=== PATIENT | female | born 1940 | race Caucasian/White ===

== ENCOUNTER 2020-04-03 14:58 | Outpatient (CLI) | payer MEDICARE, SELFPAY ==
--- NOTE | ~2020-04-03 | MM_ITS ---
EXAMINATION: MM screening jim BI w lorraine HISTORY: Screening mammogram TECHNIQUE: Craniocaudal and mediolateral oblique 3-D tomosynthesis images were obtained and synthetic 2-D images were generated. CAD analysis was submitted and interpreted. COMPARISON: No prior mammogram is available for comparison at this institution. BREAST PARENCHYMAL COMPOSITION: There are scattered areas of fibroglandular density. FINDINGS: There are benign bilateral breast calcifications. There is no evidence of suspicious mass, calcification, or architectural distortion to suggest malignancy in either breast. There has been no suspicious interval change. IMPRESSION: 1. No mammographic evidence of malignancy. 2. Recommend routine screening mammography in one year. BI-RADS Category 2: Benign finding(s). Reviewed, dictated and finalized at location A.
--- NOTE | ~2020-04-03 | DEXA_ITS ---
Bone Density Report Name: Ashley Ortiz Age: 79 Sex: Female Ethnicity: White Date of : 1940 Indication: osteopenia; height loss; hysterectomy; Referring Provider: THADDEUS, DENIS Mooer Study: Bone densitometry was performed. Exam Date: April 03, 2020 Accession number: [id number] Bone Density: Region BMD T-score Z-score Classification AP Spine (L1-L4) 0.860 -1.7 1.0 Osteopenia Femoral Neck (Left) 0.604 -2.2 0.1 Osteopenia Total Hip (Left) 0.809 -1.1 1.0 Osteopenia Total Hip Bilateral Avg 0.820 -1.0 1.1 Osteopenia Femoral Neck (Right) 0.599 -2.3 0.0 Osteopenia Total Hip (Right) 0.831 -0.9 1.1 Normal World Health Organization criteria for BMD impression classify patients as: Normal (T-score at or above -1.0), Osteopenia (T-score between -1.0 and -2.5), or Osteoporosis (T-score at or below -2.5). 10-year Fracture Risk(1): Major Osteoporotic Fracture 17% Hip Fracture 5.1% Reported Risk Factors: [place] (), Neck BMD=0.599, BMI=30.4 (1) FRAX(R) Version 3.08. Fracture probability calculated for an untreated patient. Fracture probability may be lower if the patient has received treatment. Previous Exams: Region Exam Age BMD T-score BMD Change BMD Change Date g/cm2 vs Baseline vs Previous AP Spine(L1-L4) 04/03/2020 79 0.860 -1.7 0.002(0.2%) 0.002(0.2%) 05/21/2015 75 0.858 -1.7 Total Hip(Left) 04/03/2020 79 0.809 -1.1 -0.039(-4.6%)* -0.039(-4.6%)* 05/21/2015 75 0.848 -0.8 Total Hip(Right) 04/03/2020 79 0.831 -0.9 -0.049(-5.6%)* -0.049(-5.6%)* 05/21/2015 75 0.880 -0.5 *Denotes significance at 95% confidence level, LSC for AP Spine = 0.022 g/cm2, LSC for Total Hip = 0.027 g/cm2 Clinical Information Provided by Patient: Has the following medical conditions: Hysterectomy Patient maximum height was 66 Menopause Age: 50 No regular weight bearing exercise Drinks caffeinated beverages Onset of menses at age 14 Number of children 4 Impression: The patient has low bone mass, based on the Right Femoral Neck T-score. The patient has an estimated ten-year risk of hip fracture of 5.1% and an estimated ten-year risk of major fracture of 17%, based on the WHO FRAX algorithm. The BMD for the Total Hip(Left) decreased, changing by -4.6% since the last DXA exam. The BMD for the Total Hip(Right) decreased, changing by -5.6% since the last DXA exam. Discussion: BONE DENSITY IS LOW AT ONE OR MORE SKELETAL SITES. THE JANAY
== END 2020-04-03 14:59 | disposition home or self-care (01) ==
PROVIDERS: PCP Internal Medicine; Visit Provider Internal Medicine
DX: Z12.31 Encounter for screening mammogram for malignant neoplasm of breast (principal); Z78.0 Asymptomatic menopausal state; M85.88 Other specified disorders of bone density and structure, other site; M85.852 Other specified disorders of bone density and structure, left thigh; M85.851 Other specified disorders of bone density and structure, right thigh
CPT/HCPCS: 77063; 77067; 77080

== ENCOUNTER 2021-10-29 09:13 | Outpatient (CLI) | payer MEDICARE, SELFPAY ==
--- NOTE | ~2021-10-29 | MM_ITS ---
EXAMINATION: MM screening [facility] BI w lorraine HISTORY: Screening mammogram TECHNIQUE: Craniocaudal and mediolateral oblique 3-D tomosynthesis images were obtained and synthetic 2-D images were generated. CAD analysis was submitted and interpreted. COMPARISON: 04/03/2020 BREAST PARENCHYMAL COMPOSITION: There are scattered areas of fibroglandular density. FINDINGS: RIGHT BREAST: There is no evidence of suspicious mass, calcification, or architectural distortion to suggest malignancy. There has been no significant interval change. LEFT BREAST: There is a possible mass in the middle third of the upper-outer quadrant breast 6.5 cm f rom the nipple. IMPRESSION: 1. Possible left breast mass 2. Additional mammographic views and possible breast ultrasound are recommended. BI-RADS Category 0: Incomplete: Needs additional imaging evaluation. Reviewed, dictated and finalized at location A. PING/RECEIVING MANAGER IMPRESSION: 1. Possible left breast mass 2. Additional mammographic views and possible breast ultrasound are recommended . BI-RADS Category 0: Incomplete: Needs additional imaging evaluation.
== END 2021-10-29 09:14 | disposition home or self-care (01) ==
LOC: ANHIMG 09:14
PROVIDERS: PCP Internal Medicine; Visit Provider Internal Medicine
DX: Z12.31 Encounter for screening mammogram for malignant neoplasm of breast (principal); R92.8 Other abnormal and inconclusive findings on diagnostic imaging of breast
CPT/HCPCS: 77063; 77067

== ENCOUNTER 2021-12-17 13:48 | Outpatient (CLI) | payer MEDICARE, SELFPAY ==
--- NOTE | ~2021-12-17 | MMUS_ITS ---
EXAMINATION: MM diagnostic jim LT w lorraine, US breast LT limited HISTORY: Follow-up possible left breast mass TECHNIQUE: Additional 3-D tomosynthesis images of the left breast were performed and synthetic 2-D im ages were generated. CAD analysis was submitted and interpreted. High resolution Limited left breast ultrasound was performed. COMPARISON: Comparison to multiple prior studies sequentially, with oldest reviewed study dated 04/03. BREAST PARENCHYMAL COMPOSITION: Breast composed of scattered areas of fibroglandular density. FINDINGS: MAMMOGRAPHIC FINDINGS: There is focal architectural distortion in the upper outer quadrant of the left breast, middle third. There are benign-appearing calcifications of the left breast. ULTRASOUND: Limited left breast ultrasound: At 1:00 there is an irregular hypoechoic area with dense posterior sh adowing There is a 3.5 mm cyst at 2:00, 4 cm from the nipple. IMPRESSION: 1. Irregular hypoechoic mass with dense posterior shadowing at 1:00, 4 cm from the nipple. 2. This mass is better demonstrated on mammography and ultrasound. Stereotactic left breast biopsy re commended. BI-RADS category 4, suspicious findings. Reviewed, dictated and finalized at location A. INSTALLER IMPRESSION: 1. Irregular hypoechoic mass with dense posterior shadowing at 1:00, 4 cm from the nipple. 2. This mass is better demonstrated on mammography and ultrasound. Stereotactic left breast biopsy recommended. BI-RADS category 4, suspicious findings.
== END 2021-12-17 13:49 | disposition home or self-care (01) ==
PROVIDERS: PCP Internal Medicine; Visit Provider Internal Medicine
DX: R92.8 Other abnormal and inconclusive findings on diagnostic imaging of breast (principal)
CPT/HCPCS: 76642; 77061; 77065; G0279

== ENCOUNTER 2021-12-24 10:46 | Outpatient (CLI) | payer MEDICARE, SELFPAY ==
--- NOTE | ~2021-12-24 | MM_ITS ---
MM post biopsy diagnostic LT, MM stereotactic specimen LT, MM stereotactic bx LT EXAMINATION: MM post biopsy diagnostic LT, MM stereotactic specimen LT, MM stereotactic bx LT DATE: Charbel Ulloa M.D. INDICATION: Abnormal mass in the left breast. Stereotactic core biopsy is requested evaluate for mal ignancy. TECHNIQUE AND FINDINGS: The risks and potential benefits of the procedure were discussed with the patient and written informe d consent was obtained. The patient was placed in the prone position clustered at the table with the left breast in craniocaudal compression, and the area of interest was localized and targeted utilizi ng digital imaging with stereotaxis. After sterile preparation of the skin, 1% lidocaine was utilized for local anesthesia at the skin pun cture site and 1% lidocaine with epinephrine was utilized for deeper local anesthesia/is about the bi opsy site. A 9G Mobile Shareholder vacuum assisted biopsy needle was advanced to the level of the calcification o f interest from a cephalad approach utilizing stereotactic guidance and a total of 6 tissue core biop sies were obtained. A specimen radiograph demonstrates that the calcifications of interest are included within the tissue cores. A tissue marker clip was then placed at the biopsy site. The needle was removed and hemosta sis was achieved. The patient tolerated the procedure well and there is no evidence of significant i mmediate complication. The patient was given verbal as well as written postprocedural instructions p rior to discharge from the department. Tissue cores were submitted to surgical pathology for histolo gic analysis. A 2-view left unilateral digital mammogram was obtained post procedure and this demonstrates that the tissue marker clip is in expected position in the upper outer quadrant. IMPRESSION: 1. Successful stereotactic biopsy of mass in the upper outer quadrant of the left breast, followed b y tissue marker clip placement. Please refer to pathology report for histologic analysis. Reviewed, dictated and finalized at location A. T COUNTER CLERK IMPRESSION: 1. Successful stereotactic biopsy of mass in the upper outer quadrant of the l eft breast, followed by tissue marker clip placement. Please refer to patholog y report for histologic analysis. IMPRESSION: 1. Successful stereotactic biopsy of mass in the upper outer quadrant of the l eft breast, followed by tissue marker clip placement. Please refer to patholog y report for histologic analysis.
== END 2021-12-24 10:47 | disposition home or self-care (01) ==
PROVIDERS: PCP Internal Medicine; Visit Provider Internal Medicine
DX: D05.12 Intraductal carcinoma in situ of left breast (principal)
CPT/HCPCS: 19081; 77065; 88305; 88342; 88360; A4648

== ENCOUNTER 2022-01-10 11:12 | Outpatient (CLI) | payer MEDICARE, SELFPAY ==
[2022-01-10 11:38] LABS: Anion Gap 11 mmol/L (8-16); Blood Urea Nitrogen 29 mg/dL (7-17); Calcium 9.6 mg/dL (8.4-10.2); Carbon Dioxide 28 mmol/L (22-30); Chloride 100 mmol/L (98-107); Estimated Glomerular Filt Rate 48; Glucose 127 mg/dL (65-110); Potassium 4.1 mmol/L (3.4-5.0); Sodium 139 mmol/L (137-145)
== END 2022-01-10 11:13 | disposition home or self-care (01) ==
LOC: ANHSURGERY 11:16
PROVIDERS: Anesthesiology; PCP Internal Medicine; Visit Provider Surgery
DX: Z01.818 Encounter for other preprocedural examination (principal); E11.9 Type 2 diabetes mellitus without complications
CPT/HCPCS: 36415; 80048

== ENCOUNTER 2022-01-15 00:16 | Day surgery (SDC) | payer MEDICARE, SELFPAY ==
[2022-01-07 15:28] VITALS: BMI 29.0
--- NOTE | 2022-01-07 15:48 | PC.NURSE ---
Report to the Outpatient Waiting Room, entrance under the green pavilion located off [facility], at time _0830_ on date _01/15/22_. OR Time: _1200_ - NEEDLE LOCALIZATION @ 0930 - You and your visitor will be asked a series of questions to screen for COVID 19 for your protection. - A mask is required within the hospital. One visitor will be allowed to accompany the patient into the hospital. Patients visitor will be instructed to remain with patient at all times or leave the building. We will allow the visitor to come back to the postoperative area when patient is ready. Preoperative COVID Testing Requirements: NONE Patients may have clear liquids (water, carbonated beverages, clear teas, apple juice) until 3 hours prior to surgery (0900 AM) with a maximum of 20 ounces. - No food from midnight until time of surgery Take the following medications with a SIP of water the morning of surgery: _NONE_ Medications to discontinue per physician _PT ALREADY STOPPED ASPIRIN 12/19/21_ Please no make-up, nail portuguese, hairspray, perfume, deodorant, or body powder the day of surgery. No jewelry (including any body piercings) or valuables the day of surgery, leave them at home. Please take a shower or bath the night before, or the morning of, surgery with an antibacterial soap. Wear comfortable, loose fitting clothing. - Jewelry must be removed prior to entering the operating room. Rings and piercings that are not removed may be cut off. - The hospital will not accept responsibility for valuables. - Please leave all valuables, including medications, at home the day of surgery. If you are going home after surgery, a licensed guard driver must drive you home. - NO public transportation without another adult. - We recommend that an adult stay with you for 24 hours following discharge. - We also recommend that you do not drive, make important decision, drink alcoholic beverages, or take any drugs that were not prescribed by your health care provider for at least 24 hours after your discharge time. Follow any additional instructions given to you from your surgeon. [facility] AM OF SURGERY Telephone instructions given to __PT and asked if any additional questions and then verbalized understanding. Patient advised to call surgeon office or pre surgery nurse liaCYNTHIA hung [phone] if any additional questions.
--- NOTE | 2022-01-14 13:37 | P.PNAN_ITS ---
Anes - Initial Pre Proc Eval Procedure: Operation Date: 01/15/22 11:00 Proposed Procedures p Left Breast Lumpectomy With Ultrasound And/Or Mammogram Guided Needle Localization, - Jose Boyd MD s Left Axillary Craig Lymph Node Biopsy - Jose Boyd MD Date/Time: 01/14/22 13:37 Surgeon: Jose Boyd MD Pre Op Diagnosis: left breast cancer Patient Data Age: 81 Gender: F Height: 1.69 m Weight: 82.72 kg Allergies Allergy/AdvReac Type Severity Reaction Status Date / Time No Known Allergies Allergy Verified 01/15/22 08:54 Home Medications Medication Instructions Recorded Confirmed Type amiloride 5 mg-hydrochlorothiazide 1 tablet PO QAM 01/06/22 01/15/22 History 50 mg tablet aspirin 325 mg tablet 325 mg PO DAILY 01/06/22 01/07/22 History atorvastatin 20 mg tablet 20 mg PO QAM 01/06/22 01/15/22 History metformin 500 mg tablet 500 mg PO QAM 01/06/22 01/15/22 History Patient hx anesthesia problems: none Family hx anesthesia problems: none Results Review: All pre-operative results and documents have been reviewed as part of the pre-operative evaluation. [facility] Past Medical History Medical History (Updated 01/06/22 @ 10:19 by Mahnaz Barksdale) Diabetes High cholesterol Hypertension Surgical History Surgical History (Updated 01/06/22 @ 10:42 by Mahnaz Barksdale) H/O left knee surgery H/O mitral valve repair H/O: hysterectomy Hx of cholecystectomy Family History Family History Father Acute myocardial infarction Mother Heart disease Diabetes mellitus Social History Social History Smoking status: Never smoker Second hand tobacco smoke exposure: No Alcohol intake: never Substance use: never Substance use type: does not use Living arrangements: with family Additional living arrangements comments: LIVES WITH SPOUSE AND GRANDSON Additional occupation/education comments: beautician Gender identity (if verbalized by the patient): Female Spiritual care concerns: No Anes - Eval Final PreProcedure Day of Procedure 01/14/22 13:37 Patient weight: overweight Heart: regular rate and rhythm Lungs: clear to auscultation and normal air movement Airway: Mallampati scale class II Neurological: alert and oriented Last oral intake: >/= 8 hours ASA classification: III Emergent: no Anesthetic plan: proceed Anesthesia type and monitoring: general ETT and standard monitoring Results Review: All pre-operative results and documents have been reviewed as pa rt of the pre-operative evaluation. Informed Consent: The patient's anesthetic plan and its attendant risks and benefits were discussed with the patient/family/POA. Questions were solicited and answers provided to the satisfaction of the patient/family/POA.
[2022-01-15] VITALS (7 sets, daily range): BP systolic 111–130; BP diastolic 56–74; PULSE 62–76; RESP 14–20; TEMP 36.6–36.7; O2SAT 92–100
--- NOTE | ~2022-01-15 | MM_ITS ---
EXAMINATION: MM needle loc LT MAMMOGRAPHY SPECIMEN DATE: 01/15/2022 13:23 POWER PRESS SUPERVISOR INDICATION: Abnormal left breast mammogram. TECHNIQUE: The procedure for a mammography-guided needle localization was discussed with the patient' s. Risks and benefits were detailed, including risks of bleeding, infection, pain, and nondiagnostic specimen. The patient verbalized understanding and agreed to proceed. The time out was performed to verify the patient's name, date of , and site of procedure. The p atient was placed in left breast compression, and the skin overlying the left breast was prepped in u sual fashion. Utilizing mammography guidance, a needle was advanced into the left breast. Two confi rmatory films were obtained. The patient tolerated procedure without immediate complication. A specimen radiograph was performed. FINDINGS: Two view confirmatory films of the left breast demonstrate a the wire adjacent to the tissu e marker. The tissue marker is contained within the surgical specimen.] IMPRESSION: 1. Successful mammography-guided left breast needle localization. Reviewed, dictated and finalized at location A. R PRESS SUPERVISOR IMPRESSION: 1. Successful mammography-guided left breast needle localization.
--- NOTE | ~2022-01-15 | NM_ITS ---
NM sentinel node inject only 01/15/2022 13:24 MIGRATION AGENT INDICATION: Left breast cancer TECHNIQUE: 1.1 Millicuries Tc 99m filtered sulfur colloid was injected and 4 aliquots in the anterior upper outer quadrant of the breast near the areola. No images were obtained. IMPRESSION: 1: Status post left breast sentinel lymph node radiopharmaceutical injection. Reviewed, dictated and finalized at location A. ATION AGENT
[2022-01-15] MEDS: ACETAMINOPHEN 500 MG TABLET 1000 MG PO (08:58)
[2022-01-15] MEDS: KETOROLAC 15 MG/ML VIAL (*BKC) IV PUSH (09:08)
[2022-01-15] MEDS: LACTATED RINGERS 1,000 ML 30 ML IV CONT ×2 (09:08→14:00)
[2022-01-15 09:15] LABS: Glucose Point of Care 138 mg/dl (65-105)
--- NOTE | 2022-01-15 09:30 | SUR.PREOP ---
0930 pt taken to ultrasound for needle localization,dr ho notified sentinal node injection at 1000.
--- NOTE | 2022-01-15 11:04 | WPDHPUPDATE1 ---
History and Physical Update Update Date/Time: 01/15/22 11:04 History and Physical has been reviewed, including an updated exam of the patient. There are NO changes in the patient's condition. Risks, benefits, and alternatives have been discussed and questions answered. Patient agrees to proceed with procedure.
[2022-01-15] MEDS: ceFAZolin 2 GM/D5W 50 ML 2 GM/50 ML BAG IVPB (11:35)
[2022-01-15] MEDS: BUPIVACAINE/EPINEPHRINE 0.25% 10 ML VIAL 30 ML INFILTRATE (12:26)
[2022-01-15] MEDS: ISOSULFAN BLUE 1% INJ 5 ML VIAL SUB-Q (12:27)
--- NOTE | 2022-01-15 13:39 | SUR.OPER ---
specimens sent with johnna Howell and received in mammography by Koko and in pathology by Eva
[2022-01-15 14:07] LABS: Glucose Point of Care 126 mg/dl (65-105)
--- NOTE | 2022-01-15 14:22 | W.PM.PROC2 ---
Procedure Note - Detailed Date of Procedure 01/15/22 Pre-op Diagnosis left breast upper outer quadrant cancer Post-op Diagnosis Same Procedure Performed Wire localization, left breast lumpectomy; left axillary sentinel lymph node biopsy Surgeon Jose Boyd MD [employer] Life Dean Kay VENTURA Anesthesia General and Local (0.25% Marcaine with epinephrine) Indications Patient is an 81-year-old woman who was noted to have pleomorphic calcifications in the left breast, upper outer quadrant. 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 After discussion in the office, she is taken to surgery for wire localization, left breast lumpectomy as well as left axillary sentinel lymph node biopsy. Findings Three sentinel lymph nodes were submitted. [place] node 1. Took up dye and had a high isotope emission. Basalt node 2. Was enlarged but had only high isotope emission. Basalt node 3. Was a smaller lymph node but had high isotope emission. The specimen mammogram showed the marker lesion to be in the center of the specimen. Description of Procedure Patient was taken to surgery and induced into general anesthesia. The left breast and left axilla were prepped and draped. The left arm was mobile and prepped into the field. Care was taken not to disturb the localizing wire. We started with the sentinel node biopsy. Lymphazurin blue dye was infiltrated under the left nipple. Gentle breast massage was carried out. Using the navigator, I found an area in the left axilla that had a very high isotope emission. I marked this with an X on the skin. And then marked the proposed hairline left axillary incision. Local anesthesia was infiltrated in the area of the anticipated incision. Incision was made dissection was carried down through the subcutaneous fat. We dissected into the axillary fat. I then used the Navigator again and found the location of the initial sentinel node. I would continued the dissection in this direction and eventually found a dye stained somewhat enlarged lymph node. I carefully dissected this from the surrounding axillary tissue. A couple of dye stained lymphatics were clipped and disconnected from the node. Eventually I dissected the node out completely using cautery as well as some blunt and sharp dissection. I again checked the node with the navigator in and had a very high isotope emission. It was sent as left axillary node 1. I checked the axilla again with the navigator. Another area of very high isotope emission was high in the axilla under the pectoralis minor muscle. This area was exposed and I dissected under the clavipectoral fascia. Continued dissection showed a very large lymph node that had a high isotope emission. This node was not dye stained. It was actually fairly close to the axillary vein. I carefully dissected this node from the surrounding axillary tissue. Some cautery as well as clips for lymphatics were used. Eventually the node was dissected completely free. I checked it again and it had hi isotope emission. It was sent as axillary lymph node 2. I checked the left axilla again and found 1 other area of high isotope emission. This was medial to the incision went somewhat deep but not high in the axilla. I dissected this area and found a small lymph node which also had high isotope emission but no dye staining. This node was dissected from the remaining axillary tissue. I checked it again and the isotope emission was consistent with another sentinel node. This node was sent as axillary lymph node 3. I then recheck the axilla with the navigator. Although there was some isotope emission associated with dye stained lymphatics, I could not find any other areas that were suggestive of an axillary sentinel node. I palpated the axilla as well. No enlarged nodes were noted. I then checked and made sure hemostasis was excellent. The axilla was closed with a deep layer of interrupted 3-0 Monocryl suture.
== END 2022-01-15 16:03 | disposition home or self-care (01) ==
PROVIDERS: PCP Internal Medicine; Visit Provider Surgery
PROC: (CPT 19301; principal; 2022-01-15 11:00)
PROC: (CPT 19301; 2022-01-15 11:00)
DX: C50.412 Malignant neoplasm of upper-outer quadrant of left female breast (principal); N60.82 Other benign mammary dysplasias of left breast; N60.32 Fibrosclerosis of left breast; E11.9 Type 2 diabetes mellitus without complications; E78.00 Pure hypercholesterolemia, unspecified; I10 Essential (primary) hypertension; Z79.84 Long term (current) use of oral hypoglycemic drugs; Z79.82 Long term (current) use of aspirin
CPT/HCPCS: 19301; 38525; 19281; 36415; 38792; 76098; 80048; 82948; 88307; 88342; A9270; A9520; C1713; C1769; J0690; J1885; J2370; J2405; J2704; J3010; J7030; J7120

== ENCOUNTER 2022-09-22 09:15 | Outpatient (CLI) | payer MEDICARE, SELFPAY ==
--- NOTE | ~2022-09-22 | MM_ITS ---
EXAMINATION: MM diagnostic jim BI w lorraine HISTORY: Left breast cancer with recent lumpectomy. TECHNIQUE: Additional 3-D tomosynthesis images of the breasts were performed and synthetic 2-D images were generated. CAD analysis was submitted and interpreted. COMPARISON: Comparison to multiple prior studies sequentially, with oldest reviewed study dated 04/03. BREAST PARENCHYMAL COMPOSITION: Breast composed of scattered areas of fibroglandular density FINDINGS: Breast composed of scattered areas of fibroglandular density. The right breast is stable wi thout evidence for malignancy. There is asymmetric increased breast density in the upper outer quadra nt of the left breast consistent with previous lumpectomy and possible radiation therapy. Clinically correlate. There are coarse stable calcifications in the upper outer quadrant. No discrete masses or architectural distortion are identified. IMPRESSION: 1. No evidence for malignancy in either breast. Recent postoperative changes in the left breast. 2. Routine yearly screening mammogram and regular clinical breast examination are recommended. BI-RADS Category 2: Benign finding(s). Reviewed, dictated and finalized at location A. AGE MECHANIC IMPRESSION: 1. No evidence for malignancy in either breast. Recent postoperative changes in the left breast. 2. Routine yearly screening mammogram and regular clinical breast examination a re recommended. BI-RADS Category 2: Benign finding(s).
== END 2022-09-22 09:16 | disposition home or self-care (01) ==
PROVIDERS: PCP Internal Medicine; Visit Provider Internal Medicine Hematology & Oncology
DX: C50.412 Malignant neoplasm of upper-outer quadrant of left female breast (principal); Z17.0 Estrogen receptor positive status [ER+]
CPT/HCPCS: 77062; 77066; G0279

== ENCOUNTER → 2022-10-09 10:03 | Outpatient (CLI) | payer MEDICARE, SELFPAY ==
--- NOTE | ~2022-10-09 | DEXA_ITS ---
Bone Density Report Name: TITO TOLLIVER Age: 82 Sex: Female Ethnicity: White Date of : 1940 Indication: postmenopausal; screening for osteoporosis; height loss; cancer; hysterectomy; Referring Provider: Wil ePna Study: Bone densitometry was performed. Exam Date: October 09, 2022 Accession number: [id number] Bone Density: Region BMD T-score Z-score Classification AP Spine (L1-L4) 0.848 -1.8 1.0 Osteopenia Femoral Neck (Left) 0.643 -1.9 0.6 Osteopenia Total Hip (Left) 0.809 -1.1 1.1 Osteopenia Femoral Neck (Right) 0.660 -1.7 0.7 Osteopenia Total Hip (Right) 0.794 -1.2 1.0 Osteopenia Total Hip Mean 0.802 -1.2 1.1 Osteopenia World Health Organization criteria for BMD impression classify patients as: Normal (T-score at or above -1.0), Osteopenia (T-score between -1.0 and -2.5), or Osteoporosis (T-score at or below -2.5). 10-year Fracture Risk(1): Major Osteoporotic Fracture 14% Hip Fracture 4.1% Reported Risk Factors: [place] (), Neck BMD=0.643, BMI=30.0 (1) FRAX(R) Version 3.08. Fracture probability calculated for an untreated patient. Fracture probability may be lower if the patient has received treatment. Clinical Information Provided by Patient: Has used the following medications: Vitamin D Has the following medical conditions: Cancer, Hysterectomy, LEFT BREAST CA LUMPECTOMY 01/2022 WITH RADIATION AND ANASTROZOLE X 6MONTHS Patient maximum height was 66.0 Menopause Age: 52 No regular weight bearing exercise Drinks caffeinated beverages Onset of menses at age 14 Number of children 4 Impression: The patient has low bone mass, based on the Left Femoral Neck T-score. The patient has an estimated ten-year risk of hip fracture of 4.1% and an estimated ten-year risk of major fracture of 14%, based on the WHO FRAX algorithm. Discussion: BONE DENSITY IS LOW AT ONE OR MORE SKELETAL SITES. THE PATIENT'S BMD AND CLINICAL RISK FACTORS CONTRIBUTE TO THIS PATIENT'S INCREASED RISK OF FRACTURE. This patient's lowest T-score is low at one or more skeletal sites. It meets the World Health Organization's (WHO) criteria for ?low bone mass? (T-score between -1.0 and -2.5). The patient's 10-year risk of hip fracture as calculated by FRAX exceeds the threshold where pharmacological therapy is recommended by the National Osteoporosis Foundation (NOF). However, all treatment decisions require clinical judgment and consideration of individual patient factors, including patient preferences, comorbidities, previous drug use, risk factors not captured in the FRAX model (e.g., frailty, falls, vitamin D deficiency, increased bone turnover, interval significant decline in bone density) and possible under or overestimation of fracture risk by FRAX. The patient should follow a healthful lifestyle (good
== END ==
PROVIDERS: PCP Internal Medicine; Visit Provider Internal Medicine Hematology & Oncology
DX: M85.89 Other specified disorders of bone density and structure, multiple sites (principal)
CPT/HCPCS: 77080

== ENCOUNTER 2023-02-16 12:55 | Emergency (ER) | payer MEDICARE, SELFPAY ==
[2023-02-16 13:02] VITALS: BP 124/41; PULSE 73; RESP 20; TEMP 37; O2SAT 100
--- NOTE | 2023-02-16 13:21 | ED.URI ---
HPI - URI/Sore Throat General Chief Complaint: Upper Respiratory Infection Stated Complaint: Sore Throat Source: patient and RN notes reviewed History of Present Illness HPI Narrative: 8-year-old female presents to urgent care with complaints of phlegm in throat. The patient states she will cough some. Patient is also reporting a slight headache intermittently. Patient reports mild congestion my nose. Patient states her biggest complaint is left phlegm in her throat. Patient does report a sore throat when she coughs is states she has a burning in her throat every once in awhile. Patient denies any chest pain, shortness of breath, vomiting, fevers, or chills. Denies any ear pain. Patient states she took a Zyrtec other day with no relief. Some parts of this dictation were generated by voice recognition software and may contain typographical and/or grammatical inaccuracies. Related Data Home Medications Medication Instructions Recorded Confirmed amiloride 5 mg-hydrochlorothiazide 1 tablet PO QAM 01/06/22 05/06/22 50 mg tablet aspirin 325 mg tablet 325 mg PO DAILY 01/06/22 05/06/22 atorvastatin 20 mg tablet 20 mg PO QAM 01/06/22 05/06/22 metformin 500 mg tablet 500 mg PO QAM 01/06/22 05/06/22 anastrozole 1 mg tablet 1 mg PO DAILY 05/06/22 05/06/22 Allergies Allergy/AdvReac Type Severity Reaction Status Date / Time No Known Allergies Allergy Verified 05/06/22 08:34 Review of Systems Review of Systems: Pertinent positives and pertinent negatives per HPI. [facility] Past Medical History Medical History Diabetes High cholesterol Hypertension Surgical History Surgical History H/O left knee surgery H/O lumpectomy 01/15/22 H/O mitral valve repair H/O: hysterectomy Hx of cholecystectomy Family History Family History Father Acute myocardial infarction Mother Heart disease Diabetes mellitus Social History Social History Smoking status: Never smoker Second hand tobacco smoke exposure: No Alcohol intake: never Substance use: never Substance use type: does not use Living arrangements: with family Additional living arrangements comments: LIVES WITH SPOUSE AND GRANDSON 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 There is no relevant family history pertinent to the patient complaint. Exam Narrative: GENERAL: This is a well-nourished, well-developed patient, in no apparent distress. HEAD: normocephalic, atraumatic. EYES: Sclera clear/white. Vision is grossly intact. EARS: External ears normal, auditory canals clear and without drainage, TMs normal without perforation. Hearing grossly intact. NOSE: External nose normal with no obvious nasal discharge, nares without redness, no rhinorrhea. THROAT: Mucous membranes moist, posterior pharynx clear. NECK: Neck supple, non-tender without lymphadenopathy, masses or thyromegaly. CARDIOVASCULAR: Regular rate and rhythm without murmurs, gallops, or rubs. RESPIRATORY: Clear to auscultation. Breath sounds equal bilaterally. No wheezes, rales, or rhonchi. GASTROINTESTINAL: Abdomen soft, non-tender, nondistended. Bowel sounds are active. No hepato-splenomegaly, or palpable masses. No guarding. SKIN: warm, intact with no suspicious lesions or rash, good texture and turgor. NEURO: awake, alert, and oriented to person, place and time. There were no obvious focal neurologic abnormalities. BACK: Nontender with
== END 2023-02-16 13:48 | disposition home or self-care (01) ==
PROVIDERS: Emergency Provider Nurse Practitioner Family; PCP Internal Medicine
DX: J06.9 Acute upper respiratory infection, unspecified (principal); E11.9 Type 2 diabetes mellitus without complications; E78.00 Pure hypercholesterolemia, unspecified; I10 Essential (primary) hypertension
CPT/HCPCS: 87081; 87880; 99213; G0463

== ENCOUNTER 2023-09-22 08:40 | Outpatient (CLI) | payer MEDICARE, SELFPAY ==
--- NOTE | ~2023-09-22 | MM_ITS ---
EXAMINATION: MM screening jim BI w lorraine HISTORY: Screening mammogram, history of left breast cancer TECHNIQUE: Craniocaudal and mediolateral oblique 3-D tomosynthesis images were obtained and synthetic 2-D images were generated. CAD analysis was submitted and interpreted. COMPARISON: 09/22/2022, 12/17/2021, 10/29/2021, 04/03/2020 BREAST PARENCHYMAL COMPOSITION: There are scattered areas of fibroglandular density. FINDINGS: There are lumpectomy changes in the upper outer quadrant of the left breast. No suspicious mass, calcification, or architectural distortion are identified in either breast to suggest malignanc y. There has been no suspicious interval change. IMPRESSION: 1. No mammographic evidence of malignancy. 2. Recommend routine screening mammography in one year. BI-RADS Category 2: Benign finding(s). Reviewed, dictated and finalized at location A. EL CRAFTSMAN
== END 2023-09-22 08:41 | disposition home or self-care (01) ==
PROVIDERS: PCP Internal Medicine; Visit Provider Internal Medicine Hematology & Oncology
DX: Z12.31 Encounter for screening mammogram for malignant neoplasm of breast (principal)
CPT/HCPCS: 77063; 77067

== ENCOUNTER 2024-09-26 07:42 | Outpatient (CLI) | payer MEDICARE, SELFPAY ==
--- NOTE | ~2024-09-26 | CT_ITS ---
CTA chest Ordering provider: Gary RichMD History: 84 years Female with . THORACIC AORTIC ANEURYSM . Comparison: None. Technique: CT angiogram chest was performed following timed intravenous injection of contrast. Thin s lice axial images and reformatted coronal images were obtained. Three dimensional reformatted images of the chest were also obtained using a batterii workstation. . Automated exposure control and iterati ve reconstruction technique were employed. The dose-length product was 333.10 mGy-cm. 100 mL Omnipaqu e 350 was given IV. Findings: PULMONARY ARTERIES: No pulmonary embolus. Prominent main pulmonary artery measuring 3.7 cm is seen adorno ggestive of pulmonary hypertension. VISUALIZED THORACIC INLET: Normal. MEDIASTINUM: Aorta/coronary arteries: Mild atheromatous disease. Ascending aorta measures 3.9 cm.0 Heart/other: The heart is slightly enlarged. Lymph nodes: No mediastinal or hilar adenopathy. Postoperative changes in the mediastinum. LUNGS: Multiple patchy areas of groundglass appearance is seen in both lungs which may indicate atelectasis versus pneumonia versus pulmonary edema. Possibility of expiration phase with underlying emphysematou s changes also not excluded. Otherwise, No pulmonary nodules or masses. No effusions. No pneumothorax . VISUALIZED UPPER ABDOMEN: Status post cholecystectomy. Fat infiltration of the liver. Prominent pancr eatic duct. Tiny left renal cyst. Small sliding hiatus hernia. Otherwise, the visualized upper abdome n is normal. MUSCULOSKELETAL: Soft tissues: The superficial soft tissues are normal. Bones: Age appropriate degenerative changes of the spine. IMPRESSION: 1. No pulmonary embolism. 2. Ascending aorta measures 3.9 cm. 3. Prominent main pulmonary artery suggestive of pulmonary hypertension. 4. Multiple patchy groundglass appearing areas. Differential as described above. Clinical correlatio n advised. Reviewed, dictated and finalized at location A. CASHIER IMPRESSION: 1. No pulmonary embolism. 2. Ascending aorta measures 3.9 cm. 3. Prominent main pulmonary artery suggestive of pulmonary hypertension. 4. Multiple patchy groundglass appearing areas. Differential as described abov e. Clinical correlation advised.
[2024-09-26 08:15] LABS: Estimated Glomerular Filt Rate 39
== END 2024-09-26 07:43 | disposition home or self-care (01) ==
PROVIDERS: PCP Internal Medicine; Visit Provider Internal Medicine
DX: I71.20 Thoracic aortic aneurysm, without rupture, unspecified (principal)
CPT/HCPCS: 71275; Q9967

== ENCOUNTER 2024-10-11 22:56 | Emergency (ER) | payer MEDICARE, SELFPAY ==
--- NOTE | ~2024-10-11 | CT_ITS ---
Clinical Indication: Ascending aortic aneurysm, dissection CT Scan of the Chest, Abdomen, and Pelvis with Contrast: Technique: Contiguous sections were acquired throughout the chest, abdomen, and pelvis after intraven ous administration of 100 cc of Omnipaque 350. Dose reduction technique was used on this scan by janice pérezing automated exposure control and iterative reconstruction technique. The dose-length product (DL P) was 793.30 mGy-cm. Comparison: 09/26/2024 Findings: There is no evidence of any significant mediastinal, hilar or axillary lymphadenopathy. The mediastin al soft tissues appear normal. Ascending aorta upper limits of normal at 4 cm in diameter. No aortic dissection. No central pulmonary embolus seen. Stable seroma noted in the left breast. There is no evidence of pleural or pericardial effusion. The lungs are clear. No pulmonary nodules or infiltrates are noted. There is diffuse hepatic steatosis. Cholecystectomy clips are present. The spleen, pancreas, adrenals and left kidney are within normal limits. There is a 1.5 cm indeterminate mass at the right kidney ( axial image 143). No evidence of aortic aneurysm or dissection. No lymphadenopathy. No bowel obstruction or bowel wall thickening. There is no evidence to suggest acute appendicitis. Urinary bladder is unremarkable. No pelvic mass seen. No ascites. Impression: No aortic aneurysm or dissection. Ascending aorta is upper limits of normal at 4 cm in diameter. Diffuse hepatic steatosis. Indeterminate 1.5 cm right renal mass. Pre and postcontrast CT or MR recommended to assess for solid lesion versus complex cyst. Reviewed, dictated and finalized at [facility]. ER SETTER Impression: No aortic aneurysm or dissection. Ascending aorta is upper limits of normal at 4 cm in diameter. Diffuse hepatic steatosis. Indeterminate 1.5 cm right renal mass. Pre and postcontrast CT or MR recommende d to assess for solid lesion versus complex cyst.
--- NOTE | ~2024-10-11 | CT_ITS ---
Non-contrast Head CT History: Tremor Technique: Axial non-contrast imaging of the brain was performed. Dose reduction technique was used on this scan by utilizing automated exposure control and iterative reconstruction technique. The dose -length product (DLP) was 681.00 mGy-cm. Findings: There is no evidence of intracranial hemorrhage, mass lesion, or acute infarct. Brain par enchyma appears normal. The ventricles and subarachnoid spaces are normal in size. The calvarium ap pears normal. The visualized paranasal sinuses and mastoid air cells are clear. Impression: No significant abnormality seen. Reviewed, dictated and finalized at location . END OPERATOR Impression: No significant abnormality seen.
--- NOTE | ~2024-10-11 | XR_ITS ---
Portable chest x-ray Comparison: None Clinical History: Weakness Findings: There is central congestive change and mild pulmonary edema pattern. Cardiomediastinal si lhouette is prominent, status post probable valve replacement. Bones and soft tissues are unremarkabl e. Impression: Central congestive change and mild pulmonary edema pattern. Reviewed, dictated and finalized at [facility]. R RESOURCES BUSINESS SEGMENT LEADER Impression: Central congestive change and mild pulmonary edema pattern.
[2024-10-11 23:06] VITALS: BP 138/90; PULSE 104; RESP 16; TEMP 36.7; O2SAT 98
[2024-10-12] VITALS (20 sets, daily range): BP systolic 112–116; BP diastolic 60–67; PULSE 91–111; RESP 17–29; O2SAT 93–100
--- NOTE | 2024-10-12 00:23 | ECG_ITS ---
Test Date: 2024-10-12 00:36:29 Measurements Intervals [place] Rate: 103 P: 55 MN: 209 QRS: -21 QRSD: 129 T: 111 QT: 345 QTc: 453 Interpretive Statements SINUS TACHYCARDIA MODERATE INTRAVENTRICULAR CONDUCTION DELAY [105+ ms QRS DURATION, 80+ ms Q/S IN V1/V2, NO Q AND 60+ ms R IN I/aVL/V5/V6] ST DEVIATION AND MODERATE T-WAVE ABNORMALITY, CONSIDER LATERAL ISCHEMIA [-0.1+ mV T WAVE IN I/aVL/V5/V6] ABNORMAL ECG No previous ECG available for comparison Electronically Signed On 10-12-2024 10:56:28 RICKSHAW DRIVER by Manohar Tobias M.D.
[2024-10-12 00:58] LABS: Add Urine Microscopic? YES; Appearance Urine Clear (Clear); Bacteria Urine None Seen /hpf; Bilirubin Urine 1+ (Negative); Blood Urine Negative (Negative); Color Urine Dark Yellow (Yellow); Glucose Urine UA Negative (Negative); Ketones Urine Negative (Negative); Leukocyte Esterase Ur 2+ LEU/UL (Negative); Nitrate Urine Negative (Negative); Non Pathogenic Casts 0-2; Protein Urine Trace mg/dL (Negative); RBC Urine 0-2 /hpf (0-2); Specific Grav Ur 1.022 (1.001-1.035); Squamous Epithelial Cell Urine Occasional /hpf (Few); Urobilinogen Urine >=8.0 mg/dL (<2.0); WBC Urine 21-50 /hpf (0-3); pH Urine 7.5 (5.0-9.0)
[2024-10-12 01:00] LABS: Lactic Acid Reflex 2.6 mmol/L (0.7-2.0)
[2024-10-12 01:08] LABS: Basophils Percent Auto 0.1 % (0.2-1.2); Eosinophils Percent Auto 0.3 % (0-4.4); Hematocrit 41.1 % (37.0-47.0); Hemoglobin 12.8 g/dL (12.0-15.0); Immature Granulocyte Absolute 0.15 K/mm3 (0.00-0.031); Immature Granulocyte Percent A 1.9 % (0-0.5); Lymphocytes Absolute Auto 0.38 K/mm3 (0.9-3.2); Lymphocytes Percent Auto 4.9 % (18.3-44.2); Mean Corpuscular HGB Conc 31.1 g/dl (32-36); Mean Corpuscular Hemoglobin 26.5 pg (26-34); Mean Corpuscular Volume 85.1 fl (80-100); Mean Platelet Volume 10.5 fl (7.4-10.4); Monocytes Absolute Auto 0.4 K/mm3 (0.1-0.6); Monocytes Percent Auto 5.4 % (2.6-8.5); Neutrophils Absolute Auto 6.8 K/mm3 (1.3-6.7); Neutrophils Percent Auto 87.4 % (45.5-73.1); Platelet Count Result 206 k/mm3 (150-375); Red Blood Count 4.83 M/mm3 (4.2-5.4); Red Cell Distribution Width 14.3 % (11.5-14.5); White Blood Count 7.8 K/mm3 (4.5-10.0)
[2024-10-12 01:18] LABS: Alanine Aminotransferase 212 U/L (6-35); Albumin Level 4.4 g/dL (3.5-5.1); Alkaline Phosphatase 759 U/L (38-126); Anion Gap 7 mmol/L (4-12); Aspartate Amino Transferase 335 U/L (14-36); Bilirubin,Total 2.8 mg/dL (0.2-1.3); Blood Urea Nitrogen 28 mg/dL (7-17); Calcium 9.7 mg/dL (8.4-10.2); Carbon Dioxide 28 mmol/L (22-30); Chloride 101 mmol/L (98-107); Estimated CRCL calculation 40 ml/min; Estimated Glomerular Filt Rate 53; Glucose 164 mg/dL (65-110); Potassium 3.7 mmol/L (3.4-5.0); Sodium 136 mmol/L (137-145); Troponin I < 0.012 ng/mL (0.000-0.034)
[2024-10-12 01:24] LABS: Hypochromasia 1+; Ovalocytes 1+; Platelet Estimate Adequate (Adequate); Schistocytes None Seen
--- NOTE | 2024-10-12 03:09 | ECG_ITS ---
Test Date: 2024-10-12 03:54:17 Measurements Intervals [place] Rate: 94 P: 46 OK: 225 QRS: -15 QRSD: 118 T: 5 QT: 364 QTc: 456 Interpretive Statements SINUS RHYTHM WITH FIRST DEGREE AV BLOCK MODERATE INTRAVENTRICULAR CONDUCTION DELAY [110+ ms QRS DURATION] NONSPECIFIC ST & T-WAVE ABNORMALITY ABNORMAL ECG Compared to ECG 10/12/2024 00:36:29 First degree AV block now present Sinus tachycardia no longer present Possible ischemia no longer present T-wave abnormality still present Electronically Signed On 10-12-2024 10:57:46 BACK TENDER CYLINDER by Manohar Tobias M.D.
[2024-10-12 03:43] LABS: Reflex Lactic Acid Yes or No Add Lactic
--- NOTE | 2024-10-12 04:17 | ED.GENADULT ---
HPI - General Adult General Chief complaint: Neuro Symptoms/Deficit Stated complaint: new onset of tremors Time Seen by Provider: 10/12/24 00:18 History of Present Illness HPI narrative: Patient is 84-year-old female who presents emergency department with chief complaint of tremoring in her hands. Patient reports she was recently diagnosed with a thoracic aortic aneurysm patient reports that this evening she had an episode where she started shaking in her hands the patient states that has subsequently resolved the patient reports no loss of consciousness denies bowel or bladder incontinence denies it being unilateral reports no slurred speech denies bowel or bladder incontinence. Related Data Home Medications Medication Instructions Recorded Confirmed amiloride 5 mg-hydrochlorothiazide 1 tablet PO QAM 01/06/22 05/06/22 50 mg tablet aspirin 325 mg tablet 325 mg PO DAILY 01/06/22 05/06/22 atorvastatin 20 mg tablet 20 mg PO QAM 01/06/22 05/06/22 metformin 500 mg tablet 500 mg PO QAM 01/06/22 05/06/22 anastrozole 1 mg tablet 1 mg PO DAILY 05/06/22 05/06/22 Allergies Allergy/AdvReac Type Severity Reaction Status Date / Time No Known Allergies Allergy Verified 10/11/24 22:58 Review of Systems Review of Systems: A 10 system review of systems was completed on the patient and is negative except for what is stated in the HPI. Nursing and ancillary documentation was reviewed. [facility] Past Medical History Medical History Diabetes High cholesterol Hypertension Surgical History Surgical History H/O left knee surgery H/O lumpectomy 01/15/22 H/O mitral valve repair H/O: hysterectomy Hx of cholecystectomy Family History Family History Father Acute myocardial infarction Mother Heart disease Diabetes mellitus Social History Social History Smoking status: Never smoker Second hand tobacco smoke exposure: No Alcohol intake: never Substance use: never Substance use type: does not use Living arrangements: with family Additional living arrangements comments: LIVES WITH SPOUSE AND GRANDSON 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 HEAD: Normocephalic, atraumatic. EYES: PERRLA and EOMI. ENT: Nares clear, no rhinorrhea or epistaxis. Mucous membranes moist. NECK: Supple. CHEST: Clear to auscultation. No respiratory distress. HEART: Regular rate and rhythm. No murmur heard. Normal peripheral pulses. ABDOMEN: Soft, nontender, nondistended, normal active bowel sounds. EXTREMITIES: Normal range of motion. No edema. SKIN: Warm, dry, no rash. NEURO: No focal deficits. Alert and oriented x3. PSYCH: Normal mood and affect. Course Vital Signs Vital signs: Vital Signs Temperature 36.7 C 10/11/24 23:06 Pulse Rate 104 H 10/11/24 23:06 Respiratory Rate 16 10/11/24 23:06 Blood Pressure 138/90 10/11/24 23:06 Pulse Oximetry 98 10/11/24 23:06 Oxygen Delivery Room Air 10/11/24 23:06 Temperature 36.7 C 10/11/24 23:06 Pulse Rate 99 10/12/24 04:00 Respiratory Rate 19 10/12/24 04:00 Blood Pressure 115/64 10/12/24 03:31 Pulse Oximetry 96 10/12/24 04:00 Oxygen Delivery Room Air 10/11/24 23:06 Medical Decision Making [facility] Narrative Medical decision making narrative: Differential diagnosis includes dissection, intracranial pathology, UTI, electrolyte abnormality Laboratory studies were obtained on the patient showed a normal CBC CMP was within normal limits initial troponin was negative repeat troponin was negative the patient did have elevation liver transaminases CTA chest abdomen pelvis showed no acute abnormality CT head showed no acute abnormality Urinalysis showed 21-50 white blood cells with occasional squamous and 2+ leukocyte esterase Patient will be started on oral antibiotics Vital Signs Vital Signs: Vital Signs Temperature 36.7 C 10/11/24 23:06 Pulse Rate 104 H 10/11/24 23:06 Respiratory Rate 16 10/11/24 23:06 Blood Pressure 138/90 10/11/24 23:06 Pulse Oximetry 98 10/11/24 23:06 Oxygen Delivery Room Air 10/11/24 23:06 Temperature 36.7 C 10/11/24 23:06 Pulse Rate 99 10/12/24 04:00 Respiratory Rate 19 10/12/24 04:00 Blood Pressure 115/64 10/12/24 03:31 Pulse Oximetry 96 10/12/24 04:00 Oxygen Delivery Room Air 10/11/24 23:06 Lab Data 10/12/24 00:37 10/12/24 00:37 Labs: Lab Results 10/12/24 10/12/24 10/12/24 Range/Units 00:37 00:46 03:55 WBC 7.8 (4.5-10.0) K/mm3 RBC 4.83 (4.2-5.4) M/mm3 Hgb 12.8 (12.0-15.0) g/dL Hct 41.1 (37.0-47.0) % MCV 85.1 (80-100) fl MCH 26.5 (26-34) pg MCHC 31.1 L (32-36) g/dl RDW 14.3 (11.5-14.5) % Plt Count 206 (150-375) k/mm3 MPV 10.5 H (7.4-10.4) fl Immature Gran % (Auto) 1.9 H (0-0.5) % Neut % (Auto) 87.4 H (45.5-73.1) % Lymph % (Auto) 4.9 L (18.3-44.2) % Jay % (Auto) 5.4 (2.6-8.5) % Eos % (Auto) 0.3 (0-4.4) % Baso % (Auto) 0.1 L (0.2-1.2) % Lymph # (Auto) 0.38 L (0.9-3.2) K/mm3 Jay # (Auto) 0.4 (0.1-0.6) K/mm3 Eos # (Auto) 0.0 (0-0.3) K/mm3 Baso # (Auto) 0.0 (0.0-0.1) K/mm3 Abs Immat Gran (auto) 0.15 H (0.00-0.031) K/mm3 Absolute Neuts (auto) 6.8 H (1.3-6.7) K/mm3 Absolute Nucleated RBC 0.000 (0.0-0.012) K/mm3 Nucleated RBC % 0.0 (0.0-0.2) % Platelet Estimate Adequate (Adequate) Hypochromasia 1+ Ovalocytes 1+ Schistocytes None seen Sodium 136 L (137-145) mmol/L Potassium 3.7 (3.4-5.0) mmol/L Chloride 101 (98-107) mmol/L Carbon Dioxide 28 (22-30) mmol/L Anion Gap 7 (4-12) mmol/L BUN 28 H (7-17) mg/dL Creatinine 1.00 (0.7-1.0) mg/dL Estim Creat Clear Calc 40 ml/min Estimated GFR 53 L (59 - ) Glucose 164 H (65-110) mg/dL Lactic Acid 2.6 H (0.7-2.0) mmol/L Calcium 9.7 (8.4-10.2) mg/dL Magnesium 2.0 (1.6-2.3) mg/dL Total Bilirubin 2.8 H (0.2-1.3) mg/dL AST 335 H (14-36) U/L ALT 212 H (6-35) U/L Alkaline Phosphatase 759 H (38-126) U/L Troponin I < 0.012 0.029 D (0.000-0.034) ng/mL Total Protein 8.0 (6.3-8.2) g/dL Albumin 4.4 (3.5-5.1) g/dL Urine Color Dark yellow (Yellow) Urine Appearance Clear (Clear) Urine pH 7.5 (5.0-9.0) Ur Specific [place] 1.022 (1.001-1.035) Urine Protein Trace (Negative) mg/dL Urine Glucose (UA) Negative (Negative) mg/dL Urine Ketones Negative (Negative) mg/dL Ur Blood (Man) Negative (Negative) Urine Nitrate Negative (Negative) Urine Bilirubin 1+ H (Negative) Urine Urobilinogen >=8.0 H (<2.0) mg/dL Leukocyte Esterase Rfl 2+ H (Negative) KACIE/UL Urine RBC 0-2 (0-2) /hpf Urine WBC 21-50 H (0-3) /hpf Ur Squamous Epith Cells Occasional (Few) /hpf Urine Bacteria None seen /hpf Urine Casts 0-2 10/12/24 Range/Units 04:06 WBC (4.5-10.0) K/mm3 RBC (4.2-5.4) M/mm3 Hgb (12.0-15.0) g/dL Hct (37.0-47.0) % MCV (80-100) fl MCH (26-34) pg MCHC (32-36) g/dl RDW (11.5-14.5) % Plt Count (150-375) k/mm3 MPV (7.4-10.4) fl Immature Gran % (Auto) (0-0.5) % Neut % (Auto) (45.5-73.1) % Lymph % (Auto) (18.3-44.2) % Jay % (Auto) (2.6-8.5) % Eos % (Auto) (0-4.4) % Baso % (Auto) (0.2-1.2) % Lymph # (Auto) (0.9-3.2) K/mm3 Jay # (Auto) (0.1-0.6) K/mm3 Eos # (Auto) (0-0.3) K/mm3 Baso # (Auto) (0.0-0.1) K/mm3 Abs Immat Gran (auto) (0.00-0.031) K/mm3 Absolute Neuts (auto) (1.3-6.7) K/mm3 Absolute Nucleated RBC (0.0-0.012) K/mm3 Nucleated RBC % (0.0-0.2) % Platelet Estimate (Adequate) Hypochromasia Ovalocytes Schistocytes Sodium (137-145) mmol/L Potassium (3.4-5.0) mmol/L Chloride (98-107) mmol/L Carbon Dioxide (22-30) mmol/L Anion Gap (4-12) mmol/L BUN (7-17) mg/dL Creatinine (0.7-1.0) mg/dL Estim Creat Clear Calc ml/min Estimated GFR (59 - ) Glucose (65-110) mg/dL Lactic Acid 1.6 (0.7-2.0) mmol/L Calcium (8.4-10.2) mg/dL Magnesium (1.6-2.3) mg/dL Total Bilirubin (0.2-1.3) mg/dL AST (14-36) U/L ALT (6-35) U/L Alkaline Phosphatase (38-126) U/L Troponin I (0.000-0.034) ng/mL Total Protein (6.3-8.2) g/dL Albumin (3.5-5.1) g/dL Urine Color (Yellow) Urine Appearance (Clear) Urine pH (5.0-9.0) Ur Specific [place] (1.001-1.035) Urine Protein (Negative) mg/dL Urine Glucose (UA) (Negative) mg/dL Urine Ketones (Negative) mg/dL Ur Blood (Man) (Negative) Urine Nitrate (Negative) Urine Bilirubin (Negative) Urine Urobilinogen (<2.0) mg/dL Leukocyte Esterase Rfl (Negative) KACIE/UL Urine RBC (0-2) /hpf Urine WBC (0-3) /hpf Ur Squamous Epith Cells (Few) /hpf Urine Bacteria /hpf Urine Casts Discharge Plan Discharge Clinical Impression: Tremor, Acute UTI Patient Disposition: Home, Self-Care Condition: Stable Instructions: Antibiotic Form, Urinary Tract Infection in Women (ED), Tremors (ED) Prescriptions: New cephalexin 500 mg capsule 500 mg PO Q12H 7 Days Qty: 14 0RF No Action fluticasone propionate [24 Hour Allergy Relief] 50 mcg/actuation spray,suspension 1 spray intranasal BID Qty: 16 0RF Rx Instructions: administer into each nostril anastrozole 1 mg Tablet 1 mg PO DAILY metformin 500 mg tablet 500 mg PO QAM aspirin 325 mg tablet 325 mg PO DAILY atorvastatin 20 mg tablet 20 mg PO QAM amiloride-hydrochlorothiazide 5-50 mg tablet 1 tablet PO QAM Follow-up/Referrals: Hilario,Gary Moore MD [Primary Care Provider] - Time of Disposition: 04:48
[2024-10-12 04:29] LABS: Lactic Acid 1.6 mmol/L (0.7-2.0)
[2024-10-12 04:30] LABS: Troponin I 0.029 ng/mL (0.000-0.034)
[2024-10-12] MEDS: CEPHALEXIN 500 MG CAPSULE PO (04:59)
== END 2024-10-12 05:11 | disposition home or self-care (01) ==
PROVIDERS: Emergency Provider Emergency Medicine; PCP Internal Medicine
DX: N39.0 Urinary tract infection, site not specified (principal); R25.1 Tremor, unspecified; E11.9 Type 2 diabetes mellitus without complications; Z79.84 Long term (current) use of oral hypoglycemic drugs; E78.5 Hyperlipidemia, unspecified; I10 Essential (primary) hypertension
CPT/HCPCS: 36415; 70450; 71045; 71275; 74174; 80053; 81001; 83605; 83735; 84484; 85025; 87086; 93005; 99284; A9270; Q9967

== ENCOUNTER 2024-11-01 08:12 | Outpatient (CLI) | payer MEDICARE, SELFPAY ==
--- NOTE | ~2024-11-01 | MM_ITS ---
EXAMINATION: MM screening jim BI w lorraine HISTORY: Personal history of left-sided breast cancer post lumpectomy and radiation presents for scre ening bilateral mammography TECHNIQUE: Craniocaudal and mediolateral oblique 3-D tomosynthesis images were obtained and synthetic 2-D images were generated. CAD analysis was submitted and interpreted. COMPARISON: 09/22/2023 and dating back to 04/03/2020 BREAST PARENCHYMAL COMPOSITION: There are scattered areas of fibroglandular density. FINDINGS: Bulky calcification with postoperative and posttreatment change in the upper outer quadrant of the left breast, consistent with patient's history. Otherwise stable parenchymal pattern without suspicious microcalcifications, unexpected architectural distortion, discrete masses or significant asymmetry. IMPRESSION: 1. No mammographic evidence of recurrent or residual malignancy. 2. Follow-up as per ACR/ACS guidelines is suggested. BI-RADS Category 2: Benign finding(s). Reviewed, dictated and finalized at location A. DBOAT DRIVER
--- OUTSIDE RECORDS SUMMARY | 2024-11-08 06:18 | XMS_ITS | Encounter Summary ---
Author Organization [facility] Address [address] Saunders: Epic Prelude ADT [place] [address] Care Team Providers Care Email Marketing Intern Name Role Phone Gary Rich MD Primary Care Provider [phone] Encounter Details Date Type Department Care Team (Late st Contact Info) Description 10/31/2024 Orders Only Initial Department [address] [place]: [place] [address] Provider, Historical Social History Tobacco Use Types Packs/Day Years Used Date Smoking Tobacco: Never Smokeless Tobacco: Never Alcohol Use Standard Drinks/Week Comments Never 0 (1 standard drink = 0.6 oz pur e alcohol) Sex and Gender Information Value Date Recorded Sex Assigned at Not on file Gender Identity Not on file Sexual Orientation Not on file documented as of this encounter Plan of Treatment Upcoming Encounters Date Type Department Care Team (Late st Contact Info) Description 11/18/2024 10:15 AM CLINICAL PROGRAM COORDINATOR Office Visit [facility] Oncology and Hematology - [place] [address] [place] [address] [facility] [address] [place] [address] Wil Pena MD [address] [facility] [address] [place] [address] documented as of this encounter Procedures Procedure Name Priority Date/Time Associated Diagnosis Comments CANCER ANTIGEN 15-3 Routine 10/31/2024 9 :13 AM CLINICAL PROGRAM COORDINATOR CBC WITH DIFFERENTIAL Routine 10/31/2024 9:13 AM CLINICAL PROGRAM COORDINATOR COMPREHENSIVE METABOLIC PANEL Routine 10/31/2024 9:13 AM CLINICAL PROGRAM COORDINATOR documented in this encounter Results * (ABNORMAL) COMPREHENSIVE METABOLIC PANEL (10/31/2024 9:13 AM CLINICAL PROGRAM COORDINATOR) GLUCOSE 114(H) 65 - 99 mg/dL [facility] Comment: ? Fasting reference interval For someone without known diabetes, a glucose value between 100 and 125 mg/dL is consistent with prediabetes and should be confirmed with a follow-up test. BUN 23 7 - 25 mg/dL [facility] CREATININE 0.92 0.60 - 0.95 mg/dL [facility] GFR 61 > OR = 60 mL/min/1. 73m2 [facility] BUN/CREAT RATIO SEE NOTE: (calc) [facility] Comment: ?? Not Reported: BUN and Creatinine are within ?? reference range. ? SODIUM 137 135 - 146 mmol/L [facility] POTASSIUM 3.7 3.5 - 5.3 mmol/L [facility] CHLORIDE 98 98 - 110 mmol/L [facility] CO2 30 20 - 32 mmol/L [facility] CALCIUM 10.1 8.6 - 10.4 mg/dL [facility] TOTAL PROTEIN 7.1 6.1 - 8.1 g/dL [facility] ALBUMIN 4.3 3.6 - 5.1 g/dL [facility] GLOBULIN 2.8 1.9 - 3.7 g/dL (calc) [facility] ALBUMIN/GLOBULIN RATIO 1.5 1.0 - 2.5 (calc) [facility] BILIRUBIN TOTAL 0.7 0.2 - 1.2 mg/dL [facility] ALKALINE PHOSPHATASE 209(H) 37 - 153 U/L [facility] AST 16 10 - 35 U/L [facility] ALT 14 6 - 29 U/L [facility] Comment: FASTING:YES FASTING: YES Test Performed at: [facility] [address] ??[phone] Natalia Mcfarland MD 10/31/2024 9:13 AM CLINICAL PROGRAM COORDINATOR 10/31/2024 9:15 AM CLINICAL PROGRAM COORDINATOR Wil Pena MD CHEMISTRY ORDERABLES Performing Organization Address City/[facility]/ZIP Co de Phone Number [facility] [phone] [facility] [address] * CANCER ANTIGEN 15-3 (10/31/2024 9:13 AM CLINICAL PROGRAM COORDINATOR) CA 15-3 9 <32 U/mL [facility] Comment: This test was performed using the Siemens ([employer]) chemiluminescent method. Values obtained from different assay methods cannot be used interchangeably. CA 15-3 levels, regardless of value, should not be interpreted as absolute evidence of the presence or absence of disease. FASTING:YES FASTING: YES Test Performed at: [facility] ??[phone] Natalia Mcfarland MD 10/31/2024 9:13 AM CLINICAL PROGRAM COORDINATOR 10/31/2024 9:15 AM CLINICAL PROGRAM COORDINATOR Wil Pena MD CHEMISTRY ORDERABLES Performing Organization Address [facility] Co de Phone Number [facility] [phone] [facility] [address] * (ABNORMAL) CBC WITH DIFFERENTIAL (10/31/2024 9:13 AM CLINICAL PROGRAM COORDINATOR) WBC 5.7 3.8 - 10.8 Thousand/u L [facility] RBC 4.69 3.80 - 5.10 Million/uL [facility] HEMOGLOBIN 12.5 11.7 - 15.5 g/dL [facility] HEMATOCRIT 39.4 35.0 - 45.0 % [facility] MCV 84.0 80.0 - 100.0 fL [facility] MCH 26.7(L) 27.0 - 33.0 pg [facility] MCHC 31.7(L) 32.0 - 36.0 g/dL [facility] Comment: For adults, a slight decrease in the calculated MCHC value (in the range of 30 to 32 g/dL) is most likely not clinically significant; however, it should be interpreted with caution in correlation with other red cell parameters and the patient's clinical condition. RDW 13.6 11.0 - 15.0 % [facility] PLATELETS 255 140 - 400 Thousand/u L [facility] MPV 10.8 7.5 - 12.5 fL [facility] NEUTROPHIL ABSOLUTE 3,637 1,500 - 7,800 cells/uL [facility] LYMPHOCYTE ABSOLUTE 1,482 850 - 3,900 cells/uL [facility] MONOCYTE ABSOLUTE 433 200 - 950 cells/uL [facility] EOSINOPHIL ABSOLUTE 120 15 - 500 cells/uL [facility] BASOPHILS ABSOLUTE 29 0 - 200 cells/uL [facility] NEUTROPHIL 63.8 % [facility] LYMPHOCYTES 26.0 % [facility] MONOCYTE 7.6 % [facility] EOSINOPHILS 2.1 % [facility] BASOPHILS 0.5 % [facility] Comment: FASTING:YES FASTING: YES Test Performed at: [facility] [address] [place], [place] ??[phone] Natalia Mcfarland MD 10/31/2024 9:13 AM CLINICAL PROGRAM COORDINATOR 10/31/2024 9:15 AM CLINICAL PROGRAM COORDINATOR Wil Pena MD HEMATOLOGY ORDERABLE S [facility] [phone] [facility] [address] [place] [address] documented in this encounter Visit Diagnoses Not on filedocumented in this encounter Care Teams Email Marketing Intern Relationship Specialty Start Date End Date Gary Rich MD [address] [facility] [address] [place] [address] PCP - General Internal Medicine 01/29/22 documented as of this encounter
--- OUTSIDE RECORDS SUMMARY | 2024-11-08 06:18 | XMS_ITS | Patient Health Summary ---
Author Organization [facility] Address [address] [facility] [place] [address] Care Team Providers Care Svp Of Digital Name Role Phone Gary Rich MD Primary Care Provider [phone] Note from [facility],non-owned Affiliates and Associated Physician Practices is amultiple site organization consisting of ambulatory clinics and hospital sitesin [place], [place], [place] and [place]. This disclosure is being madepursuant to the Care Everywhere program and may not contain all information available regarding this patient. Last updated 18.[facility] Allergies No known active allergies Medications * Be aware that medications may not be up to date on this document. Alwaysverify current medications with the patient. * aMILoride-hydroCHLOROthiazide (MODURETIC) 5-50 MG tablet Take 1 Tab by mouth * benzonatate (TESSALON) 200 MG capsule(Started 04/26/2017) Take 1 Cap by mouth 3 times daily as needed for Cough Social History Tobacco Use Types Packs/Day Years Used Date Smoking Tobacco: Never Smokeless Tobacco: Never Sex and Gender Information Value Date Recorded Sex Assigned at Not on file Gender Identity Not on file Sexual Orientation Not on file Last Filed Vital Signs Vital Sign Reading Time Taken Comments Blood Pressure 130/74 04/26/2017 11:19 AM CDT Pulse 64 04/26/2017 11:19 AM CDT Temperature 36.4 ??C (97.6 ??F) 04/26/2017 11:19 AM C DT Respiratory Rate - - Oxygen Saturation 97% 04/26/2017 11:19 AM CDT Inhaled Oxygen Concentration - - Weight 81.6 kg (180 lb) 04/26/2017 11:19 AM CDT Height 167.6 cm (5' 6 ) 04/26/2017 11:19 AM CDT Body Mass Index 29.05 04/26/2017 11:19 AM CDT Care Teams Svp Of Digital Relationship Specialty Start Date End Date Gary Rich MD [address] [place] [phone] PCP - General 01/17/22
--- OUTSIDE RECORDS SUMMARY | 2024-11-08 06:18 | XMS_ITS | Clinical Summary ---
Author Organization [email or web address] Address [address] [place] [address] Care Team Providers Care Telephone Assembler Name Role Phone Gary Rich MD Primary Care Provider [phone] Source Comments [facility] [email or web address],non-owned Affiliates and Associated Physician Practices is amultiple site organization consisting of ambulatory clinics and hospital sitesin [place], [place], [place] and [place]. This disclosure is being madepursuant to the Care Everywhere program and may not contain all information available regarding this patient. Last updated 18.[facility] [email or web address] Allergies No known active allergies Medications * Be aware that medications may not be up to date on this document. Alwaysverify current medications with the patient. Medication Sig Dispensed Refills Start Date End Date Status aMILoride-hydroCHLOROth iazide (MODURETIC) 5-50 MG tablet Take 1 Tab by mouth Active benzonatate (TESSALON) 200 MG capsuleIndications:Acut e upper respiratory infections of unspecified site Take 1 Cap by mouth 3 times daily as needed for Cough 30 Cap 04/26/2017 Active Social History Tobacco Use Types Packs/Day Years [...] Mass Index 29.05 04/26/2017 11:19 AM CDT Plan of Treatment Health Maintenance Due Date Last Done Comments BONE DENSITY TESTING 1940 DTAP/TDAP/TD VACCINES (1 - Tdap) 1959 ZOSTER VACCINE (1 of 2) 1990 PNEUMOCOCCAL VACCINE 65+ (1 of 1 - PCV) 2005 Respiratory Syncytial Virus (RSV) Vaccine Pt: or over 60 yrs (1 - 1-dose 75+ series) 2015 DEPRESSION SCREENING 11/09/2023 MEDICARE AWV ? CALENDAR YEAR 2023 COVID-19 VACCINE (1 - 2023-2 5 season) 2024 INFLUENZA VACCINE (#1) 2024 HEPATITIS B VACCINE Aged Out No longe r eligible based on patient's age to complete this topic HIB VACCINE Aged Out No longer eligi ble based on patient's age to complete this topic HPV VACCINE Aged Out No longer eligi ble based on patient's age to complete this topic MENINGOCOCCAL VACCINE Aged Out No fauzia marilin eligible based on patient's age to complete this topic Care Teams Telephone Assembler Relationship Specialty Start Date End Date Gary Rich MD [address] [address] [address] [place] [phone] PCP - General 01/17/22
--- OUTSIDE RECORDS SUMMARY | 2024-11-08 06:18 | XMS_ITS | Encounter Summary ---
Author Organization [facility] Address [address] [address] Care Team Providers Care Parachute Cushion Installer Name Role Phone Unavailable Primary Care Provider Unavailabl e Reason for Visit * Reason Onset Date Comments Follow-up 04/28/2017 spoke with tootie lai no concerns Encounter Details Date Type Department Care Team (Late st Contact Info) Description 04/28/2017 Telephone [facility] [address] [address] Stormy Méndez, CONTINUOUS IMPROVEMENT CONSULTANT-ADMINISTRATIVE SERVICES MANAGER [address] [address] Follow-up (spoke with patient no concerns) Social History Tobacco Use Types Packs/Day Years Used Date Smoking Tobacco: Never Smokeless Tobacco: Never Sex and Gender Information Value Date Recorded Sex Assigned at Not on file Gender Identity Not on file Sexual Orientation Not on file documented as of this encounter Plan of Treatment Not on file documented as of this encounter Visit Diagnoses Not on filedocumented in this encounter
--- OUTSIDE RECORDS SUMMARY | 2024-11-08 06:18 | XMS_ITS | Encounter Summary ---
Author Organization [facility] Address [address] [place] [address] Care Team Providers Care Cake Washer Name Role Phone Unavailable Primary Care Provider Unavailabl e Reason for Visit * Reason Comments Cough 5 days Congestion Encounter Details Date Type Department Care Team (Late st Contact Info) Description 04/26/2017 4:00 PM CDT Office Visit [facility] [address] [address] Provider, [facility] Acute upper respiratory infections of unspecified site (Primary Dx) Social History Tobacco Use Types Packs/Day Years Used Date Smoking Tobacco: Never Smokeless Tobacco: Never Sex and Gender Information Value Date Recorded Sex Assigned at Not on file Gender Identity Not on file Sexual Orientation Not on file documented as of this encounter Last Filed Vital Signs Vital Sign Reading [...] Mass Index 29.05 04/26/2017 11:19 AM CDT documented in this encounter Patient Instructions * Patient Instructions* Stormy Méndez APRN-RAYSHAWN - 04/26/2017 11:33 AM CDT Images from the original note were not included. Supportive care: Tylenol or Motrin as needed Increase fluid intake, warm salt water gargles if needed Humidifier as needed Plenty, of rest Viral symptoms can last up to 2 weeks If no improvement in 48-72 hours follow up with PCP Dr Rich or return to clinic Upper Respiratory Infection WHAT YOU NEED TO KNOW: An upper respiratory infection is also called the common cold. It is an infection that can affect your nose, throat, ears, and sinuses. For healthy people, the common cold is usually not serious and does not need special treatment. Cold symptoms are usually worst for the first 3 to 5 days. Most peop le get better in 7 to 14 days. You may continue to cough for 2 to 3 weeks. Colds are caused by viruses and do not get better with antibiotics. DISCHARGE INSTRUCTIONS: Return to the emergency department if: ?? You have severe headaches, a stiff neck, or eye pain when you look at bright light. ?? You have chest pain or trouble breathing. Contact your healthcare provider if: ?? You have a fever over 102??F (39??C). ?? Your sore throat gets worse or you see white or yellow spots in your throat. ?? Your symptoms get worse after 3 to 5 days or your cold is not better in 14 days. ?? You have a rash anywhere on your skin. ?? You have large, tender lumps in your neck. ?? You have thick, green or yellow drainage from your nose. ?? You cough up thick yellow, green, dueñas, or bloody mucus. ?? You have vomiting for more than 24 hours and cannot keep fluids down. ?? You have a bad earache. ?? You have questions or concerns about your condition or care. Medicines: ?? Decongestants help reduce nasal congestion and help you breathe more easily. If you take decongestant pills, they may make you feel restless or not able to sleep. Do not use decongestant sprays for more than a few days. ?? Cough suppressants help reduce coughing. Ask your healthcare provider which type of cough medicine is best for you. ?? NSAIDs , such as ibuprofen, help decrease swelling, pain, and fever. NSAIDs can cause stomach bleeding or kidney problems in certain people. If you take blood thinner medicine, always ask your healthcare provider if NSAIDs are safe for you. Always read the medicine label and follow directions. ?? Acetaminophen decreases pain and fever. It is available without a doctor's order. Ask how much to take and how often to take it. Follow directions. Acetaminophen can cause liver damage if not taken correctly. ?? Take your medicine as directed. Contact your healthcare provider if you think your medicine is not helping or if you have side effects. Tell him or her if you are allergic to any medicine. Keep a list of the medicines, vitamins, and herbs you take. Include the amounts, and when and why you take them. Bring the list or the pill bottles to follow-up visits. Carry your medicine list with you in case of an emergency. Follow up with your healthcare provider as directed: Write down your questions so you remember to ask them during your visits. Self-care: ?? Use a humidifier or vaporizer. Use a cool mist humidifier or a vaporizer to increase air moisture in your home. This may make it easier for you to breathe and help decrease your cough. ?? Gargle with warm salt water to help your sore throat feel better. Make salt water by adding ?? teaspoon salt to 1 cup warm water. You may also suck on hard candy or throat lozenges. You may use a sore throat spray. ?? Use saline nasal drops to help relieve your congestion. ?? Drink liquids as directed. Liquids help keep your air passages moist and help you cough up mucus. Ask how much liquid to drink each day and which liquids are best for you. ?? Rest as much as possible. Slowly start to do more each day. Prevent spreading your cold to others: ?? Try to stay away from other people during the first 2 to 3 days of your cold when it is more easily spread. ?? Do not share food or drinks. ?? Do not share hand towels with household members. ?? Wash your hands often, especially after you blow your nose. Turn away from other people and cover your mouth and nose with a tissue when you sneeze or cough. ?? 2016 [employer]. Information is for End User's use only and may not be sold, redistributed or otherwise used for commercial purposes. All illustrations and images included in CareNotes?? are the copyrighted property of [employer] or [employer]. The above information is an dietary aid only. It is not intended as medical advice for individual conditions or treatments. Talk to your doctor, nurse or pharmacist before following any medical regimen to see if it is safe and effective for you. documented in this encounter Progress Notes * Stormy Méndez APRN-CNP - 04/26/2017 11:23 AM CDT [facility] Chief Complaint Patient presents with ??? Cough 5 days ??? Congestion SUBJECTIVE: General The history is provided by the patient. This is a new problem. The current episode started more than 2 days ago. The problem occurs constantly. The problem has been gradually worsening. The pain is mild. Associated symptoms include headaches. Pertinent negatives include no shortness of breath. The symptoms are aggravated by coughing. The symptoms are relieved by NSAIDs. 77 y/o female presents cough and congestion x 5 days. Past Medical History: Diagnosis Date ??? Hypertension No current outpatient prescriptions on file prior to visit. No current facility-administered medications on file prior to visit. No past surgical history on file. Social History Social History ??? Marital status: Single Spouse name: N/A ??? Number of children: N/A ??? Years of education: N/A Occupational History ??? Not on file. Social History Main Topics ??? Smoking status: Never Smoker ??? Smokeless tobacco: Never Used ??? Alcohol use Not on file ??? Drug use: Not on file ??? Sexual activity: Not on file Other Topics Concern ??? Not on file Social History Narrative ??? No narrative on file No family history on file. Current Outpatient Prescriptions Medication Sig Dispense Refill ??? aMILoride-hydroCHLOROthiazide (MODURETIC) 5-50 MG tablet Take 1 Tab by mouth ??? benzonatate (TESSALON) 200 MG capsule Take 1 Cap by mouth 3 times daily as needed for Cough 30 Cap 0 No current facility-administered medications for this visit. No Known Allergies REVIEW OF SYSTEMS: Review of Systems Constitutional: Negative for chills and fever. HENT: Positive for sore throat. Negative for congestion, ear discharge and ear pain. ST from cough Respiratory: Positive for cough and sputum production. Negative for shortness of breath and wheezing. Gastrointestinal: Negative for diarrhea, nausea and vomiting. Neurological: Positive for headaches. Negative for dizziness. OBJECTIVE: General appearance: alert, well appearing, and in no distress. BP 130/74 (BP SITE: LEFT ARM, BP POSITION: SITTING, BP CUFF SIZE: Adult) Pulse 64 Temp 97.6 ??F (Oral) Ht 1.676 m (5' 6 ) Wt 81.6 kg (180 lb) SpO2 97% BMI 29.05 kg/m2 Physical Exam Constitutional: She is oriented to person, place, and time and well-developed, well-nourished, and in no distress. HENT: Head: Normocephalic and atraumatic. Mouth/Throat: Oropharynx is clear and moist. Clear PND Neck: Normal range of motion. Neck supple. Cardiovascular: Normal rate and regular rhythm. Pulmonary/Chest: Effort normal. Dry cough Neurological: She is alert and oriented to person, place, and time. Vitals reviewed. ASSESSMENT: No results found for this visit on 04/26/17. Encounter Diagnosis Name Primary? Acute upper respiratory infections of unspecified site Yes PLAN: Supportive care: Tylenol or Motrin as needed Increase fluid intake, warm salt water gargles if needed Humidifier as needed Plenty, of rest Viral symptoms can last up to 2 weeks If no improvement in 48-72 hours follow up with PCP Dr Rich or return to clinic documented in this encounter Plan of Treatment Not on file documented as of this encounter Visit Diagnoses Diagnosis Acute upper respiratory infections of unspecified site- Primary documented in this encounter
--- OUTSIDE RECORDS SUMMARY | 2024-11-08 06:18 | XMS_ITS | Continuity of Care Document ---
Author Organization [place] - [place] [email or web address] [facility], [facility]_G Internal Med [facility] 24 [address] [facility] [address] [place] [address] Care Team Providers Care Sustainability Officer Name Role Phone DENIS RICH Primary Care Provider [phone] DENIS RICH Referring Provider Assessment No assessment recorded. Plan of Treatment Reminders Order Date Submit Date Provider Last Modified By Organization Details Last Modified Time Details Appointments None recorded . Lab lipid panel, serum 024 09/14/20 [employer] [facility], [address], [place], [address], 4 09:58:56 CMP, serum or plasma 024 09/14/20 24 [employer] [facility], [address], [place], [address], 4 09:58:57 HbA1c (hemoglo bin A1c), blood 024 09/14/20 [employer] [facility], [address], [place], [address], 4 09:59:01 TSH, serum or plasma 024 09/14/20 24 [employer] [facility], [address], [place], [address], 4 09:59:00 T4, free, serum 024 09/14/20 24 [employer] [facility], [address], [place], [address], 09:58:59 CBC w/ auto diff 024 09/14/20 [employer] [facility], [address], [place], [address], 09:58:58 Referral None recorded . Procedures None recorded . Surgeries None recorded . Imaging None recorded . Medication Orders None recorded . Patient TargetsNo targets recorded. Patient Instructions Encounter Date Encounter Id Patient Instructions Last Modified By Organization Details Last Modified Time 09/14/2024 [id number] Follow-up essent ial hypertension, paroxysmal atrial fibrillation, hyperlipidemia and type 2 diabetes. Check blood work consisting of CBC, CMP, lipid, thyroid, hemoglobin A1c. Also set up for CT scan of the thorax to evaluate for possible ascending aortic aneurysm based upon physical examination. Continue on current medications follow-up in six months Additional Orders - Directives - Recommendations 1. CT scan of the thorax with contrast for possible thoracic aortic aneurysm. Follow Up: 6 Months Approximate Date: 03/13/2025 Portions of the record may have been created with voice recognition software. Occasional wrong-word or ? [id number]? substitutions may have occurred due to the inherent limitations of voice recognition software. Read the chart carefully and recognize, using context, where substitutions have occurred. [place] [email or web address] Not available 09/14/2024 12:08:04 Reason for Referral None Reported. Results Created Date Observation Date Name Description Value Unit Range Abnormal Flag Note LastModifiedBy Organization Detail LastModifiedTime 09/26/2009/26/2024 CT, angio gram, chest , w/ contr ast No observ ation record ed. [email or web address] Not Available 2023 19:07:50 11/03/2011/01/2024 MAMMO , scree patric, bilat eral No observ ation record ed. [address] [facility] [address], [place], [address], 11/03/2024 13:26:04 Result Notes None recorded. Problems Name Problem SNOMED Code Status Onset Date Resolution Date Notes Provider Name and Address Organization Details Recorded Time Mitral valve disorder 87356058 Active Not Available [facility] 3 08:09:54 Benign essential hypertensi on 7310347 Active Not Available [facility] 3 08:09:54 Mammograph ic mass of left breast 6698165226822 9103 Active [address] [facility] 3 08:09:54 Acute sinusitis 09424213 Active [address] [facility] 3 08:09:55 Serum creatinine outside reference range 371046520 Active Not Available [facility] 3 08:09:55 Non-toxic nodular goiter 493283772 Active Not Available [facility] 3 08:09:55 Malignant tumor of breast 877509650 Active [address] [facility] 3 08:09:55 Pure hyperchole sterolemia 449567510 Active Not Available [facility] 3 08:09:55 Current tear of medial cartilage AND/OR meniscus of knee Active Not Available [facility] 3 08:09:55 Knee pain Active Not Available [facility] 3 08:09:55 Type 2 diabetes mellitus without complicati on 029775766 Active [address] [facility] 3 08:09:55 Vitamin D deficiency 28686089 Active Not Available [facility] 3 08:09:55 Osteoarthr itis 913703483 Active Not Available [facility] 3 08:09:55 Chronic kidney disease stage 2 804863899 Active [address] [facility] 3 08:09:55 Atrial fibrillati on 69212608 Active Not Available [facility] 3 08:09:55 Thoracic aortic aneurysm without rupture 08018383 Active 2023 Brianna mejia [facility] [email or web address] [facility] 4 12:15:52 Problem Notes None recorded. Procedures Surgical History Date Name Laterality Status Provider Name and Address Organization Details Recorded Time 3 Medicare Wellness CPT Code, subsequent completed Kelly Rm RN [facility] [email or web address] [facility] 02/24/2023 10:48:16 Imaging Results None recorded. Procedure Notes None recorded. Medical Equipment None Reported. Allergies Allergen ID Allergen Name Allergen Category Reaction Reaction Severity Criticality Documentation Date Start Date Code Code System Note Provider Name and Address Organization Details Recorded Time Coreg medicatio n Not available Not available Not available 01/07/2023 70698 1 RxNorm Hair loss Not Available [facility] 3 08:14:13 Medications Name Sig Start Date Stop Date Status Note LastModified by Organization Details LastModified Time Pravachol 40 mg tablet Take 1 TABLET EVERY DAY by oral route HS for choleste rol active Not Available Not Available No t Available amoxicilli n 500 mg capsule Take 1 capsule 3 times a day by oral route for 10 days. 06/14 completed Not Available Not Available Not Available metformin 500 mg tablet TAKE 1 TABLET BY MOUTH TWICE DAILY active Not Available Not Available No t Available anastrozol e 1 mg tablet TAKE 1 TABLET BY MOUTH ONCE DAILY active Not Available Not Available No t Available nystatin 100,000 unit/mL oral suspension Take 5 mL 4 times a day by oral route for 7 days. active Not Available Not Available No t Available amiloride 5 mg-hydroch lorothiazi de 50 mg tablet Take 1 tablet by mouth once daily active Not Available Not Available No t Available atorvastat in 20 mg tablet TAKE 1 TABLET BY MOUTH ONCE DAILY active Not Available Not Available No t Available azithromyc in 250 mg tablet TAKE 2 TABLETS (500 MG) BY ORAL ROUTE ONCE DAILY FOR 1 DAY THEN 1 TABLET (250 MG) BY ORAL ROUTE ONCE DAILY FOR 4 DAYS 12/17 completed Not Available Not Available Not Available benzonatat e 200 mg capsule Take 1 capsule 3 times a day by oral route. 06/14 completed Not Available Not Available Not Available hydrocodon e 5 mg-acetami nophen 325 mg tablet TAKE 1 TO 2 TABLETS BY MOUTH EVERY 6 HOURS NEEDED FOR PAIN 04/15 completed Not Available Not Available Not Available amlodipine 5 mg tablet Take 1 tablet every day by oral route. 09/14 completed Not Available Not Available Not Available omeprazole 40 mg capsule,de layed release Take 1 capsule every day by oral route. active Not Available Not Available No t Available aspirin 81 mg tablet,del ayed release Take 1 tablet every day by oral route. 2012 active Not Available Not Available Not Avai lable Tessalon Perles 100 mg capsule Take 1 capsule 3 times a day by oral route. active Not Available Not Available No t Available cephalexin 500 mg capsule active Not Available Not Available Not Available Amaryl 2 mg tablet Take 1 tablet every day by oral route. 11/17 completed Not Available Not Available Not Available diclofenac sodium 75 mg tablet,del ayed release Take 1 tablet twice a day by oral route. 2015 active Not Available Not Available Not Avai lable ibuprofen 600 mg tablet TAKE 1 TABLET BY MOUTH EVERY 6 HOURS NEEDED FOR PAIN 04/15 completed Not Available Not Available Not Available methylpred nisolone 4 mg tablets in a dose pack As directed 12/14 completed Not Available Not Available Not Available Vitamin D2 1,250 mcg (50,000 unit) capsule Take 1 capsule every week by oral route. 12/14 completed Not Available Not Available Not Available fluticason e propionate 50 mcg/actuat ion nasal spray,susp ension 02/24 completed Not Available Not Available Not Available glipizide 5 mg tablet TAKE 1 TABLET BY MOUTH TWICE DAILY active Not Available Not Available No t Available amoxicilli n 875 mg-potassi um clavulanat e 125 mg tablet TAKE 1 TABLET BY MOUTH TWICE DAILY WITH FOOD 02/24 completed Not Available Not Available Not Available Paxlovid 150 mg-100 mg tablets in a dose pack (Renal Dose) Take 1 dose pk by oral route. 08/12 completed renal dosing bid 5 days Not Available Not Available Not Available Vitals Date Recorded Body height Body mass index (BMI) Body weight Heart rate Body temperature Oxygen saturation Oxygen saturation in Arterial blood by Pulse oximetry Systolic blood pressure Diastolic blood pressure Provider Name and Address Organization Details Last Updated DateTime 4 162.56 cm 30.9 kg/m2 37705.6 3 g 67 /min 97 [degF] 96 % 96 % 120 mm[Hg] 80 mm[Hg] CYNDEE James [place] [facility] [employer] 4 11:44:28 Social History Question Answer Notes LastModified by Organizat ion Details LastModified Time Tobacco Smoking Status Never Smoker Not Available [facility] 01/07/2023 08:06:32 Do You Have An Advance Directive? Yes MIGRATION.[id number] Information not available 01/07/2023 What Is Your Level Of Alcohol Consumption? None MIGRATION.04813 57719 Information not available 01/07/2023 Are You Blind Or Do You Have Difficulty Seeing? No MIGRATION.35343 19883 Information not available 01/07/2023 Are You Deaf Or Do You Have Serious Difficulty Hearing? Yes Has Hearing Aid But Doesnt Wear It MIGRATION.54448 61361 Information not available 01/07/2023 What Type Of Diet Are You Following? REGULAR MIGRATION.86219 62558 Information not available 01/07/2023 Have There Been Any Changes To Your Family Or Social Situation? No MIGRATION.95722 89027 Information not available 01/07/2023 What Is The Fluoride Status Of Your Home? Unknown [email or web address] Information not available 02/24/2023 Are There Any Guns Present In Your Home? No MIGRATION.43279 41968 Information not available 01/07/2023 Do You Use Insect Repellent Routinely? No MIGRATION.85319 93798 Information not available 01/07/2023 [facility] [place] 97951 Information not available 01/07/2023 Guns Present In The Home? No [email or web address] Information not available 02/24/2023 Are You Able To Care For Yourself? Yes [email or web address] Information not available 02/24/2023 Are You Blind Or Do Yo Have Difficulty Seeing? No [email or web address] Information not available 02/24/2023 Are You Deaf Or Do You Have Serious Difficulty Hearing? Yes [email or web address] Information not available 02/24/2023 Live Alone Of With Others? Alone [email or web address] Information not available 02/24/2023 Do You Have A Medical Power Of Victorian Literature Professor? Yes MIGRATION.76392 25989 Information not available 01/07/2023 What Was The Date Of Your Most Recent Tobacco Screening? 02/24/2023 [email or web address] Information not available 02/24/2023 Do You Have Any Pets? No MIGRATION.66410 20692 Information not available 01/07/2023 What Is Your Relationship Status? Information not available 02/24/2023 Do You Use Your Seat Belt Or Car Seat Routinely? Yes MIGRATION.80400 65064 Information not available 01/07/2023 Do You Have Smoke And Carbon Monoxide Detectors In Your Home? Yes MIGRATION.19622 92371 Information not available 01/07/2023 Are You Passively Exposed To Smoke? No MIGRATION.25951 19821 Information not available 01/07/2023 Are There Any Smokers In Your House? No MIGRATION.79043 93391 Information not available 01/07/2023 Do You Use Sunscreen Routinely? No MIGRATION.05011 67085 Information not available 01/07/2023 Have You Recently Traveled Abroad? No MIGRATION.66310 56280 Information not available 01/07/2023 Do You Have Any Dietary Restrictions? No MIGRATION.70830 88993 Information not available 01/07/2023 Sex: Unknown Functional Status Question Answer Note LastModified by [email or web address] Details LastModified Time Do you have difficulty walking or climbing stairs? No MIGRATION.8688154 026 Information not available 01/07/2023 Do you have transportation difficulties? No MIGRATION.4934469 026 Information not available 01/07/2023 Are you able to walk? YESWOREST MIGRATION.5434162 026 Information not available 01/07/2023 Do you have difficulty doing errands alone? No MIGRATION.2703748 026 Information not available 01/07/2023 Are you able to care for yourself? Yes MIGRATION.4039430 026 Information not available 01/07/2023 Do you have difficulty dressing or bathing? No MIGRATION.6394612 026 Information not available 01/07/2023 What is your exercise level? Occasional [email or web address] Information not available 02/24/2023 Mental Status Question Answer Note LastModified by [facility] ion Details LastModified Time Do you have difficulty concentrating, remembering or making decisions? No MIGRATION.[id number] 6 Information not available 01/07/2023 Family History Nothing Reported Notes:Mother 58 from ar teriosclerotic heart disease Father 62 from arteriosclerotic heart disease Five brothers two living. Both have arteriosclerotic heart disease One brother of drowning and two from arteriosclerotic heart disease. Two sisters one living. One has arteriosclerotic heart disease and the other of complications of dementia Medical History Condition Response NERVE DISEASE N BLINDNESS N RHEUMATIC FEVER N KIDNEY STONES N BLADDER PROBLEMS N MRSA N OTHER # 1 N POLIO N LUNG DISEASE/DISORDER N HISTORY OF DRUG ABUSE N RADIATION / CHEMOTHERAPY N COPD N Other # 2 N BLOOD DISEASES N EAR OR HEARING PROBLEMS N MUMPS N SHINGLES N DEPRESSION (INCLUDING POST ) N BOWEL PROBLEMS N STROKE/TIA N ULCERS N BENIGN PROSTATIC HYPERPLASIA N MEASLES N HYPOTENSION N MYOCARDIAL INFARCTION N OBESITY N GERD/NAUSEA N ANEURYSM N URINARY/BLADDER/KIDNEY PROBLEMS N CORONARY ARTERY DISEASE (CAD) N ADDICTION CONCERNS N Impotence N ENDOMETRIOSIS N USE OF BLOOD THINNERS N SKIN PROBLEMS N GASTROINTESTINAL DISORDER N PERIPHERAL VASCULAR DISEASE N MUSCLE,JOINT OR BONE PROBLEMS N GASTROINTESTINAL BLEEDING N BLOOD CLOTS N ASTHMA N CATARACTS N ERECTILE DYSFUNCTION N VARICOSITIES N GI PROBLEMS N Low Testosterone N INFERTILITY N AIDS/HIV N CHEMOTHERAPY / RADIATION N LIVER DISEASE N MALE HYPOGONADISM N HYPERTENSION Y Deficiency N TOURETTE'S N ANXIETY DISORDER N BLOOD TRANSFUSION N ANEMIA/BLOOD DISORDER N CHRONIC EAR INFECTIONS N BRONCHITIS N TUBERCULOSIS N GLAUCOMA N FOOT PROBLEM N DIVERTICULITIS N SLEEP APNEA N CHICKENPOX N INFECTIOUS DISEASE N PROSTATE N HEART ARRHYTHMIA N INSOMNIA N HIGH CHOLESTEROL / HYPERLIPIDEMIA Y EYE PROBLEMS N HYPERTHYROIDISM N EDEMA N CHRONIC PAIN SYNDROME N HYPOTHYROIDISM N CAROTID BLOCKAGE N CONSTIPATION N BACK / NECK PROBLEMS N HAVE YOU BEEN HOSPITALIZED OR SEEN IN [facility] IN THE PAST YEAR ? N ATHEROSCLEROSIS N BREAST PROBLEMS N DIALYSIS N ECZEMA N OSTEOPOROSIS N ARTHRITIS Y NO SIGNIFICANT PAST MEDICAL HISTORY N APPENDICITIS N DIABETES, TYPE Y BAD TEETH N ENT N HEARTBURN / REFLUX N AUTISM SPECTRUM DISORDER (ASD) N HEPATITIS / LIVER DISEASE N GOUT N SLEEP DISORDER N ALZHEIMER'S DISEASE N Brain Problems N DEMENTIA N HERPES N SEIZURES/EPILEPSY N HEADACHES/MIGRAINES N VASCULAR DISEASE N PACEMAKER N Blood Disorder N DIZZINESS N HEART DISEASE/HEART PROBLEMS N KIDNEY DISEASE N MULTIPLE SCLEROSIS N CANCER: SPECIFY N CARDIAC ARRHYTHMIA N ATRIAL FIBRILLATION Y Gall Stones N PULMONARY EMBOLISM N AUTOIMMUNE DISEASE N Gynecological HistoryNo gynecological history recorded. Obstetrics History GPAL:G 0 P 0 0 0 0 Immunizations Vaccine Type Date Status Note Provider Nam e and Address Organization Details Recorded Time SARS-COV-2 (COVID-19) vaccine, UNSPECIFIED [address] [facility] 01/07/2023 08:14:07 Past Encounters Encounter ID Performer Location Encounter Start Date Encounter Closed Date Diagnosis/Indication Diagnosis SNOMED-CT Code Diagnosis ICD10 Code [id number] Denis Rich MD [facility] Internal Med [facility] [address] [address] 09/14/2024 11:39:13 09/14/2024 12:21:55 Benign essential hypertension 6466570 I10 Atrial fibrillation 4943 6004 I48.91 Pure hypercholesterolemia 639480102 E78.00 Type 2 adrian betes mellitus without complication 049310381 E11.9 Health Concerns Section Related Observation LastModified by Organization Detai ls LastModified Time None Recorded Concern Status LastModified by Organization Details LastModified Time None Recorded Payers Encounter Date Sequence Insurance Name Policy Number Policy Rayo Covered Member ID Rayo Member ID Guarantor Name 09/14/2024 1 [facility] (MEDICARE REPLACEMENT/A DVANTAGE - HMO) [id number] Ashley Ortiz [id number] Ashley Ortiz Notes Date Note Type Note Provider Name and Address Organization Details Recorded Time text/html Patient Name: Ashley Rdzate Of Service: Thursday ( 09.14.2024 ): 1940 Age: 84 There has been approximately a 4 lb weight gain since 03/08/2024. This represents approximately a 2.3% change in weight. Weight change attributable to lifestyle changes. Vital Signs:Blood Pressure: Sitting Rt. Arm 120/80Pulse: Sitting 67 /min and RegularRespiratory Rate: 16Height 64 in or 1.6 mWeight 180 lb or 81.6 kgBMI 30.9Temperature: 97 F or 36.1 CPulse Oximetry: 96 % at rest on no oxygen Chief Complaint: Addressed in HPI Problems or conditions discussed in the HPI were the only ones reviewed during the encounter.Only social and family history addressed in the HPI were reviewed during this encounter. Attendant(s): NoneConstitutional and Systemic Symptoms:none Medication Reconciliation: from medication list. [id number]: Echocardiogram estimated ejection fraction 65%. Normal-appearing tricuspid valve with mild tricuspid regurgitation. Right ventricular systolic pressures are within normal limits. Pulmonic valve leaflets appear structurally normal with normal pulmonic velocities. There is moderate pulmonary regurgitation. History of Present Illness #1. Essential Hypertension: Stage: Stage I Interval Neurological Complaints no headaches, dizziness, weakness, visual changes, ataxia, aphasia and apraxia. No shortness of breath, orthopnea or cardiovascular symptoms. No other symptoms related to end organ damage. Pressure has been under excellent control. Currently normal. No other end organ symptoms or findings. Therapy reviewed regarding management of hypertension and includes salt restriction and Moduretic. #2. Type II Hypercholesterolaemia: Currently taking medication and tolerating well. No interval complaints of any muscle pain or arthralgia. No significant liver changes with medications. Last lipid panel: fair control. Therapy reviewed regarding treatment of cholesterol management and include diet and Atorvastatin Calcium. #3. Atrial Fibrillation: Type: Paroxysmal with recurrent episodes lasting less than 7 days. Further classification: Non-valvular. Associated history of HTN. No attending hx of any shortness of breath, palpitations, syncopal or neurological symptoms. Current medications: no specific medication. Rate control: controlled ventricular response [id number] Criteria: hypertension, Age > 75 and and considered moderate risk for embolic phenomenon. Anticoagulation: ASA per cardiology #4. Type II Diabetes: Has had no polyuria polyphagia or polydipsia. Has had several hypoglycemic like responses. No new history of any numbness, tingling, weakness or visual problems. No nausea, anorexia or other constitutional symptoms. There has been no foot problems or non healing lesions. The last HAIC was DCCT HAIC: 7.0 Calculated MB mg%. CGM: No. Average blood sugars 125-150 mg%. Checking sugars : several times a week. Medication Types Include: Metformin Secondary complications include none. Macro-vascular complications include none. Therapy reviewed regarding diabetic management and include Glucophage Compliance: good Renal Protection: not required at this stage Lipid management: statins Urinary microalbumin: A1 . Ophthalmological: has seen eye doctor within the last year. Control: Good Control 6.2 - 7.0 Active Medication ListModuretic 5 MG ANHYDROUS-50 MG (TABLET - ORAL) One Daily For SwellingAspirin 325 MG One Daily For VascularAtorvastatin Calcium 40 MG (TABLET - ORAL) One DailyGlucophage 1 GM (TABLET - ORAL) One Twice A Day Adverse Drug Reactions ReviewedCoreg Hair Loss Vaccination and Immunization(X) 2021-01 COVID 19 [employer] Kzsvkvw4943-08 Left Breast Hlizvl6070-56 Left Knee Nohkjkh3462-92 Mitral Valve Bweowd4555-25 Tonsillectomy Preventative Testing( ) 04/08/2024 Albumin 4.1 G/DL N( ) 04/08/2024 Micro Albumin 0.2 MG/DL N( ) 09/02/2023 HAIC 7.0 % OF TOTAL HGB H( ) 10/09/2022 DEXA Scan 10/09/2024( ) 09/22/2022 Mammogram( ) 06/15/2014 Colonoscopy (10 Years) 06/15/2024 Social HistoryDoes not smokeDoes not drinkWorks as a beauticianFamily HistoryMother 58 from arteriosclerotic heart diseaseFather 62 from arteriosclerotic heart diseaseFive brothers two living. Both have arteriosclerotic heart disease One brother of drowning and two from arteriosclerotic heart disease.Two sisters one living. One has arteriosclerotic heart disease and the other of complications of dementiaMenarche 14 Menopause 55 A0 Denis Rich MD [address] [facility], [place] [address], [place], [address], [place] [facility] 09/14/2024 12:08:22 OBGyn Episode No OBEpisode recorded.
--- OUTSIDE RECORDS SUMMARY | 2024-11-08 06:18 | XMS_ITS | Referral Summary ---
Author Organization [facility] Address [address] [place] [address] Care Team Providers Care Hand Cloth Cutter Name Role Phone Gary Rich MD Primary Care Provider [phone] Source Comments [facility],non-owned Affiliates and Associated Physician Practices is amultiple site organization consisting of ambulatory clinics and hospital sitesin [place] and [place]. This disclosure is being madepursuant to the Care Everywhere program and may not contain all information available regarding this patient. Last updated 18.[facility] Allergies No known active allergies Medications * [...] 04/26/2017 11:19 AM CDT Plan of Treatment Not on file Care Teams Hand Cloth Cutter Relationship Specialty Start Date End Date Gary Rich MD [address] [place] [phone] PCP - General 01/17/22
--- OUTSIDE RECORDS SUMMARY | 2024-11-08 06:18 | XMS_ITS | Clinical Summary ---
Author Organization [facility] Alysia frederick Nayeli Address [address] [facility] [place] [address] Care Team Providers Care Seismic Observer Name Role Phone Gary Rich MD Primary Care Provider [phone] Allergies No known active allergies Medications Medication Sig Dispensed Refills Start Date End Date Status aMILoride-hydroCHLORO thiazide (MODURETIC) 5-50 mg Tablet Take 1 Tablet by mouth daily. 12/27/2021 Active metFORMIN (GLUCOPHAGE) 500 mg tablet metformin 500 mg tablet 10/10/2019 Active atorvastatin (LIPITOR) 20 mg tablet Take 20 mg by mouth daily. 12/27/2021 Active aspirin (BEATRICE) 325 mg tablet Take 325 mg by mouth daily. Active Active Problems Problem Noted Date Diagnosed Date Malignant neoplasm of upper- outer quadrant of left breast in female, estrogen receptor positive 01/29/2022 Encounters Date Type Department Care Team Description 11/03/2024 Orders Only [facility] Oncology and Hematology - [place] [address] [place] [id number] Wil Pena MD 10/31/2024 Orders Only Initial Department [address] [place]: [place] [address] Provider, Historical from Last 3 Months Family History Medical History Relation Name Comments Heart Disease Brother 1 Diabetes Brother 2 Heart Disease Brother 2 Diabetes Father Heart Disease Father Diabetes Mother Heart Disease Mother Relation Name Status Comments Brother 1 Alive Brother 2 Alive Brother 3 Brother 4 Brother 5 Daughter 1 Alive Daughter 2 Alive Father Mother Sister 1 Sister 2 Alive Son 1 Alive Son 2 Alive Social History Tobacco Use Types Packs/Day Years Used Date Smoking Tobacco: Never Smokeless Tobacco: Never Tobacco Cessation:Counseling Given: Not Answered Alcohol Use Standard Drinks/Week Comments Never 0 (1 standard drink = 0.6 oz pur e alcohol) Sex and Gender Information Value Date Recorded Sex Assigned at Not on file Gender Identity Not on file Sexual Orientation Not on file Last Filed Vital Signs Vital Sign Reading Time Taken Comments Blood Pressure 126/76 06/28/2024 11:40 AM CDT Pulse 69 06/28/2024 11:40 AM CDT Temperature 36.7 ??C (98 ??F) 06/28/2024 11:40 AM CDT Respiratory Rate 16 06/28/2024 11:40 AM CDT Oxygen Saturation 91% 06/28/2024 11:40 AM CDT Inhaled Oxygen Concentration - - Weight 80.7 kg (178 lb) 06/28/2024 11:40 AM CDT Height 167.6 cm (5' 6 ) 07/01/2022 1:03 PM CDT Body Mass Index 28.73 07/01/2022 1:03 PM CDT Plan of Treatment Upcoming Encounters Date Type Department Care Team (Late st Contact Info) Description 11/18/2024 10:15 AM SENIOR SOFTWARE MANAGER Office Visit [facility] Oncology and Hematology - [place] [address] [place] [address] [facility] [address] [place] [address] Wil Pena MD [address] [facility] [address] [place] [address] Health Maintenance Due Date Last Done Comments PNEUMOCOCCAL VACCINE 65+ YEARS (1 of 2 - PCV) 04/21/19 46 DIABETES ANNUAL FOOT EXAM 1958 DIABETES ANNUAL RETINAL EXAM 1958 DIABETES HBA1C Q 6 MONTHS 1958 DIABETES MICROALBUMIN ANNUAL SCREEN 1958 LDL CHOLESTEROL ANNUAL 1958 DTAP/TDAP/TD VACCINES (1 - Tdap) 1959 ZOSTER VACCINE (1 of 2) 1990 OSTEOPOROSIS SCREENING 2005 RSV VACCINE (60+ or ) (1 - 1-dose 75+ series) 2015 INFLUENZA VACCINE (#1) 2024 Procedures Procedure Name Priority Date/Time Associated Diagnosis Comments MAMMOGRAM REPORT Routine 11/01/2024 2:14 PM SENIOR SOFTWARE MANAGER COMPREHENSIVE METABOLIC PANEL Routine 10/31/2024 9:13 AM SENIOR SOFTWARE MANAGER CANCER ANTIGEN 15-3 Routine 10/31/2024 9 :13 AM SENIOR SOFTWARE MANAGER CBC WITH DIFFERENTIAL Routine 10/31/2024 9:13 AM SENIOR SOFTWARE MANAGER from Last 3 Months Results * MAMMOGRAM REPORT (11/01/2024 2:14 PM SENIOR SOFTWARE MANAGER) Anatomical Region Laterality Modality Other Wil Pena MD MAMMO ORDERABLES * CANCER ANTIGEN 15-3 (10/31/2024 9:13 AM SENIOR SOFTWARE MANAGER) CA 15-3 9 <32 U/mL [facility] Comment: This test was performed using the Siemens (Lo[place]cie) chemiluminescent method. Values obtained from different assay methods cannot be used interchangeably. CA 15-3 levels, regardless of value, should not be interpreted as absolute evidence of the presence or absence of disease. FASTING:YES FASTING: YES Test Performed at: [facility] [address] [place], [place] ??[phone] Natalia Mcfarland MD 10/31/2024 9:13 AM SENIOR SOFTWARE MANAGER 10/31/2024 9:15 AM SENIOR SOFTWARE MANAGER Wil Pena MD CHEMISTRY ORDERABLES [facility] [phone] [facility] [address] [place] [address] * (ABNORMAL) CBC WITH DIFFERENTIAL (10/31/2024 9:13 AM SENIOR SOFTWARE MANAGER) WBC 5.7 3.8 - 10.8 Thousand/u L [...] Comment: FASTING:YES FASTING: YES Test Performed at: [facility] [address] [place], [place] ??[phone] Natalia Mcfarland MD 10/31/2024 9:13 AM SENIOR SOFTWARE MANAGER 10/31/2024 9:15 AM SENIOR SOFTWARE MANAGER Wil Pena MD HEMATOLOGY ORDERABLE S [facility] [phone] [facility] [address] [place] [address] * (ABNORMAL) COMPREHENSIVE METABOLIC PANEL (10/31/2024 9:13 AM SENIOR SOFTWARE MANAGER) GLUCOSE 114(H) 65 - 99 mg/dL [facility] [...] [facility] BUN/CREAT RATIO SEE NOTE: 6 (calc) [facility] Comment: ?? Not [...] Comment: FASTING:YES FASTING: YES Test Performed at: [facility] [address] [place] ??[phone] Natalia Mcfarland MD 10/31/2024 9:13 AM SENIOR SOFTWARE MANAGER 10/31/2024 9:15 AM SENIOR SOFTWARE MANAGER Wil Pena MD CHEMISTRY ORDERABLES [facility] [phone] [facility] [address] [place] [phone] from Last 3 Months Care Teams Seismic Observer Relationship Specialty Start Date End Date Gary Rich MD [address] [facility] [address] [place] [phone] PCP - General Internal Medicine 01/29/22
--- OUTSIDE RECORDS SUMMARY | 2024-11-08 06:18 | XMS_ITS | Encounter Summary ---
Author Organization [facility] Address [address] [place] [address] Care Team Providers Care Insulation Blanket Maker Name Role Phone Gary Rich MD Primary Care Provider [phone] Encounter Details Date Type Department Care Team (Late st Contact Info) Description 08/02/2024 External Device Data [place] ABSTRACTION Provider, Abstract NO ADDRESS ON FILE Social History Tobacco Use Types Packs/Day Years [...] st Contact Info) Description 11/18/2024 10:15 AM FOREIGN POLICY OFFICER Office Visit [facility] Oncology and Hematology - [place] [address] [facility] [address] [place] [address] Wil Pena MD [address] [facility] [address] [place] [address] documented as of this encounter Visit Diagnoses Not on filedocumented in this encounter Care Teams Insulation Blanket Maker Relationship Specialty Start Date End Date Gary Rich MD [address] [facility] [address] [place] [address] PCP - General Internal Medicine 01/29/22 documented as of this encounter
--- OUTSIDE RECORDS SUMMARY | 2024-11-08 06:18 | XMS_ITS | Data Portability ---
Author Organization [place] [facility], Main Office Address [address] [place] [address] Care Team Providers Care Sports Athletic Trainer Name Role Phone DENIS RICH Primary Care Provider DENIS RICH Referring Provider Assessment No assessment recorded. Plan of Treatment Reminders Order Date Submit Date Provider Last Modified By Organization Details Last Modified Time Details Appointments None recorded. Lab lipid panel, serum 023 023 [id number] [facility], [address], [place], [address], 3 10:39:34 CMP, serum or plasma 023 023 [id number] [facility], [address], [place], [address], 3 10:39:34 vitamin D, 25-hydrox y, total, serum 023 023 [id number] [facility], [address], [place], [address], 3 10:39:35 HbA1c (hemoglob in A1c), blood 023 023 [id number] [facility], [address], [place], [address], 3 10:39:34 microalbu min/creat inine, mass ratio, urine 023 023 [id number] [facility], [address], [place], [address], 3 10:39:35 CBC w/ auto diff 023 023 [id number] [facility], [address], [place], [address], 3 10:39:34 TSH, serum or plasma 023 023 [id number] [facility], [address], [place], [address], 3 10:39:34 T4, free, serum 023 023 [id number] [facility], [address], [place], [address], 3 10:39:34 lipid panel, serum 023 [id number] [facility], [address], [place], [address], 3 12:14:43 CMP, serum or plasma 023 [id number] [facility], [address], [place], [address], 3 12:14:43 TSH, serum or plasma 023 023 [id number] [facility], [address], [place], [address], 3 12:14:43 T4, free, serum 023 023 [facility], [address], [place], [address], 3 12:14:43 CBC w/ auto diff 023 023 [id number] [facility], [address], [place], [address], 3 12:14:43 HbA1c (hemoglob in A1c), blood 023 [facility], [address], [place], [address], 3 12:14:43 microalbu min/creat inine, mass ratio, urine 023 023 [facility], [address], [place], [address], 3 12:14:44 lipid panel, serum 024 024 [id number] [facility], [address], [place], [address], 4 09:59:37 CMP, serum or plasma 024 024 [id number] [facility], [address], [place], [address], 4 09:59:37 microalbu min/creat inine, mass ratio, urine 024 024 [facility], [address], [place], [address], 4 09:59:38 TSH, serum or plasma 024 024 [id number] [facility], [address], [place], [address], 4 09:59:37 T4, free, serum 024 024 [id number] [facility], [address], [place], [address], 4 09:59:37 CMP, serum or plasma 024 [id number] [facility], [address], [place], [address], 4 09:59:37 CBC w/ auto diff 024 [id number] [facility], [address], [place], [address], 4 09:59:37 lipid panel, serum MAXX [facility], [address], [place], [address], 4 09:58:56 CMP, serum or plasma MAXX [facility], [address], [place], [address], 4 09:58:57 HbA1c (hemoglob in A1c), blood [facility], [address], [place], [address], 4 09:59:01 TSH, serum or plasma MAXX [facility], [address], [place], [address], 4 09:59:00 T4, free, serum 024 [facility], [address], [place], [address], 4 09:58:59 CBC w/ auto diff 024 024 [facility], [address], [place], [address], 4 09:58:58 Referral None recorded. Procedures None recorded. Surgeries None recorded. Imaging None recorded. Medication Orders None recorded. Patient TargetsNo targets recorded. Patient Instructions Encounter Date Encounter Id Patient Instructions Last Modified By Organization Details Last Modified Time 02/24/2023 [id number] dementia rating scale-2* Not available 02/24/2023 11:08:38 alcohol misuse* [email or web address] Not available 02/24/2023 11:08:38 depression screening* [email or web address] Not available 02/24/2023 11:08:38 multi-dimensiona l health assessment questionnaire* [email or web address] Not available 02/24/2023 11:08:37 Personalized Hea lt Plan and Screening Recommendations Advance Directives - Do you have one? Yes Advance Directives - Do we have your advance directive on file in your health record? Primary Prevention/Interven tion (prevents or decreases the chance of common diseases from occurring) Smoking Risk: Non Smoker Alcohol Misuse Screening: Negative Weight: Appropriate Overwei ght continue your current weight loss efforts try to lose 5% of your body weight try to lose 10% of your body weight Physical activity: Nutrition: Good Average Fall Risk (screened today): Low Vaccines Pneumococcal: Ordered Recommended today Recommended today, but you have declined Influenza: Ordered Recommended today Recommended today, but you have declined Chronic Disease Risks Stroke: Low Risk Intermediate Risk I have no recommendations Act trista diagnosis, Continue current treatment plan Heart Attack: Low risk Intermediate Risk I have no recommendations Act trista diagnosis, Continue current treatment plan Clogging of the Arteries: Low risk Intermediate Risk I have no recommendations Act trista diagnosis, Continue current treatment plan Diabetes: Low Risk Intermediate Risk Secondary Prevention/Interven tion (detects treatable diseases before they may cause symptoms, disability, or ) Breast Cancer Screening with mammogram: Cervical/Uterine/Ov marlene Cancer Screening: Osteoporosis Screening: Date Screening Last Performed: Colon Cancer Screening: Colonoscopy Date Screening Last Performed: Eye Disease Screening: Dementia Risk: Low I have no recommendations Depression Screening: Negative [email or web address] Not available 02/24/2023 10:54:59 Medicare [facility] evaluation risk assessment stable. Follow-up hypertension -atrial fibrillation -hyperlipidemia- type 2 diabetes-malignant tumor of the breast. All clinically stable at this time. Will check blood work consisting of CBC, CMP, lipid, thyroid, hemoglobin A1c and microalbumin. Check a vitamin-D level. Continue on current Rx follow-up in six months. If not seen by optometry or ophthalmology needs a diabetic eye exam [email or web address] Not available 02/24/2023 11:00:15 08/25/2023 [id number] Follow-up hypertension -paroxysmal atrial fibrillation -hyperlipidemia - type 2 diabetes-chronic kidney disease stage 2 all clinically stable. Will check blood work consisting of CBC, CMP, lipid, thyroid, hemoglobin A1c and microalbumin. Continue on current Rx follow-up in six months. Standard immunizations of RSV, COVID, influenza and shingles as recommended. Portions of the record may have been created with voice recognition software. Occasional wrong-word or ? rsdzg-j-jont? substitutions may have occurred due to the inherent limitations of voice recognition software. Read the chart carefully and recognize, using context, where substitutions have occurred. Next Appt: 6 Months Approximate Date: 02/21/2024 [email or web address] Not available 08/25/2023 11:17:24 03/08/2024 [id number] Follow-up hypertension, paroxysmal atrial fibrillation, hyperlipidemia type 2 diabetes all clinically stable. Will check blood work consisting of CMP, lipid, thyroid, hemoglobin A1c, microalbumin and CBC. Continue on current Rx follow-up in six months. Next Appointment: 6 Months Approximate Date: 09/04/2024 Portions of the record may have been created with voice recognition software. Occasional wrong-word or ? [id number]-[id number]? substitutions may have occurred due to the inherent limitations of voice recognition software. Read the chart carefully and recognize, using context, where substitutions have occurred. [email or web address] Not available 03/08/2024 11:27:06 09/14/2024 [id number] Follow-up essent ial hypertension, paroxysmal atrial fibrillation, [...] voice recognition software. Occasional wrong-word or ? [id number]-[id number]? substitutions may have occurred due to the inherent limitations of voice recognition software. Read the chart carefully and recognize, using context, where substitutions have occurred. [email or web address] Not available 09/14/2024 12:08:04 Reason for Referral None Reported. Results Created Date Observation Date Name Description Value Unit Range Abnormal Flag Note LastModifiedBy Organization Detail LastModifiedTime 03/09/2003/10/2023 LIPID PANEL , [place] cholesterol, total 181 mg/dL <200 normal Not Available [facility] [address] [address] [place], [address], 03/10/2023 17:08:10 03/09/20 23 03/10/2023 LIPID PANEL , [place] HDL cholesterol 56 mg/dL > or = 50 normal Not Available [facility] [address] [address] [place], [address], 03/10/2023 17:08:10 03/09/2003/10/2023 LIPID PANEL , [place] triglyceride s 162 mg/dL <150 high Not Available [facility] [address] [address] [place], [address], 03/10/2023 17:08:10 03/09/2003/10/2023 LIPID PANEL , [place] LDL-choleste rol 99 mg/dL _(isis c) normal Refer ence range : <100 Huma able range <100 mg/dL for prima ry preve ntion ; <70 mg/dL for patie nts with CHD or diabe tic patie nts with > or = 2 CHD risk facto rs. LDL-C is now calcu lated using the Gertrude n-Hop kins calcu kenny n, which is a valid ated novel ngao d yudi reyes accur acdewayne than the Fried calin equat ion in the estim ation of LDL-C . Gertrude n SS et al. KELLY. 2013; 310(1 1): 2061- 2068 (http ://ed ucati on.Dayne Arreguin [employer]. com/f aq/FA Q164) Not Available [address] [address] [address], [place], [address], 03/10/2023 17:08:10 03/09/20 23 03/10/2023 LIPID PANEL , [place] chol/HDLC ratio 3.2 (calc ) <5.0 normal Not Available [address] [address], [place], [address], 03/10/2023 17:08:10 03/09/2003/10/2023 LIPID PANEL , [place] non HDL cholesterol 125 mg/dL _(isis c) <130 normal For patie nts with diabe paul plus 1 major ASCVD risk facto r, treat ing to a non-H DL-C goal of <100 mg/dL (LDL- C of <70 mg/dL ) is consi milton a ender ordaz optio n. Not Available [address] [address], [place], [address], 03/10/2023 17:08:10 03/09/2003/10/2023 ALBUM IN, RANDO M URINE W/CRE ATINI NE creatinine, random urine 63 mg/dL 20-275 normal Not Available [address] [address] [address], [place], [address], 03/10/2023 17:08:12 03/09/20 23 03/10/2023 ALBUM IN, RANDO M URINE W/CRE ATINI NE albumin, urine 0.2 mg/dL see note: normal Refer ence Range : Refer ence Range Not estab lishe d Not Available [address] [address] [place], [address], 03/10/2023 17:08:12 03/09/20 23 03/10/2023 ALBUM IN, RANDO M URINE W/CRE ATINI NE albumin/crea tinine ratio, random urine 3 mcg/m g_cre at <30 normal The ADA defin es abnor malit ies in album in excre tion as follo ws: Album inuri a Categ ory Resul t (mcg/ mg creat inine ) Ashley l to Mildl y incre ased <30 Moder ately incre ased 30-29 9 Sever archie incre ased > OR = 300 The ADA recom mends that at least two of three speci mens colle cted withi n a 3-6 month perio d be abnor mal befor e consi selin g a patie nt to be withi n a diagn ostic categ ory. Not Available [address], [address], 03/10/2023 17:08:12 03/09/20 23 03/10/2023 COMPR EHENS TRISTA METAB OLIC PANEL , PLASM A glucose 118 mg/dL 65-99 high Fasti ng refer ence inter hernandez For someo ne witho ut known diabe paul, a gluco se value betwe en 100 and 125 mg/dL is consi stent with predi abete s and shoul d be confi rmed with a follo w-up test. Not Available [address], [address], 03/10/2023 17:08:13 03/09/20 23 03/10/2023 COMPR EHENS TRISTA METAB OLIC PANEL , PLASM A urea nitrogen (BUN) 24 mg/dL 7-25 normal Not Available [facility] [address] [place], [address], 03/10/2023 17:08:13 03/09/20 23 03/10/2023 COMPR EHENS TRISTA METAB OLIC PANEL , PLASM A creatinine 0.98 mg/dL 0.60-0 .95 high Not Available [facility] [address] [place], [address], 03/10/2023 17:08:13 03/09/20 23 03/10/2023 COMPR EHENS TRISTA METAB OLIC PANEL , PLASM A eGFR 58 mL/mi n/1.7 3m2 > or = 60 low The eGFR is based on the CKD-E PI 2020 equat ion. To calcu late the new eGFR from a previ ous Creat inine or Cysta tin C resul t, go to https ://jewel duncan.yani carcamo.o kadeem/haseeb pathak s/ kdoqi /gfr% 5Fcal culat or Not Available [address], [address], 03/10/2023 17:08:13 03/09/20 23 03/10/2023 COMPR EHENS TRISTA METAB OLIC PANEL , PLASM A BUN/creatini ne ratio 24 (calc ) 6-22 high Not Available [address], [address], 03/10/2023 17:08:13 03/09/20 23 03/10/2023 COMPR EHENS TRISTA METAB OLIC PANEL , PLASM A sodium 139 mmol/ L 135-14 6 normal Not Available [address], [address], 03/10/2023 17:08:13 03/09/20 23 03/10/2023 COMPR EHENS TRISTA METAB OLIC PANEL , PLASM A potassium 3.7 mmol/ L 3.4-4. 8 normal Not Available [address], [address], 03/10/2023 17:08:13 03/09/20 23 03/10/2023 COMPR EHENS TRISTA METAB OLIC PANEL , PLASM A chloride 101 mmol/ L 98-110 normal Not Available [facility] [address], [address], 03/10/2023 17:08:13 03/09/20 23 03/10/2023 COMPR EHENS TRISTA METAB OLIC PANEL , PLASM A carbon dioxide 26 mmol/ L 20-32 normal Not Available [facility] [address], [address], 03/10/2023 17:08:13 03/09/20 23 03/10/2023 COMPR EHENS TRISTA METAB OLIC PANEL , PLASM A calcium 10.5 mg/dL 8.6-10 .4 high Not Available [facility] [address], [address], 03/10/2023 17:08:13 03/09/20 23 03/10/2023 COMPR EHENS TRISTA METAB OLIC PANEL , PLASM A protein, total 7.3 g/dL 6.4-8. 4 normal Not Available [facility] [address], [address], 03/10/2023 17:08:13 03/09/20 23 03/10/2023 COMPR EHENS TRISTA METAB OLIC PANEL , PLASM A albumin 4.1 g/dL 3.6-5. 1 normal Not Available [facility] [address], [address], 03/10/2023 17:08:13 03/09/20 23 03/10/2023 COMPR EHENS TRISTA METAB OLIC PANEL , PLASM A globulin 3.2 g/dL_ (calc ) 2.2-4. 0 normal Not Available [facility] [address], [address], 03/10/2023 17:08:13 03/09/20 23 03/10/2023 COMPR EHENS TRISTA METAB OLIC PANEL , PLASM A albumin/glob ulin ratio 1.3 (calc ) 0.9-2. 3 normal Not Available [facility] [address], [address], 03/10/2023 17:08:13 03/09/20 23 03/10/2023 COMPR EHENS TRISTA METAB OLIC PANEL , PLASM A bilirubin, total 0.5 mg/dL 0.2-1. 2 normal Not Available [address], [address], 03/10/2023 17:08:13 03/09/20 23 03/10/2023 COMPR EHENS TRISTA METAB OLIC PANEL , PLASM A alkaline phosphatase 138 U/L 37-153 normal Not Available [address], [address], 03/10/2023 17:08:13 03/09/20 23 03/10/2023 COMPR EHENS TRISTA METAB OLIC PANEL , PLASM A AST 15 U/L 10-35 normal Not Available [address], [address], 03/10/2023 17:08:13 03/09/20 23 03/10/2023 COMPR EHENS TRISTA METAB OLIC PANEL , PLASM A ALT 11 U/L 6-29 normal Not Available [address], [address], 03/10/2023 17:08:13 03/09/20 23 03/10/2023 CBC (INCL UDES DIFF/ PLT) white blood cell count 5.1 thous and/u L 3.8-10 .8 normal Not Available [address], [address], 03/10/2023 17:08:14 03/09/20 23 03/10/2023 CBC (INCL UDES DIFF/ PLT) red blood cell count 4.93 rose on/uL 3.80-5 .10 normal Not Available [address], [address], 03/10/2023 17:08:14 03/09/20 23 03/10/2023 CBC (INCL UDES DIFF/ PLT) hemoglobin 12.7 g/dL 11.7-1 5.5 normal Not Available [address], [address], 03/10/2023 17:08:14 03/09/20 23 03/10/2023 CBC (INCL UDES DIFF/ PLT) hematocrit 39.8 % 35.0-4 5.0 normal Not Available [address], [address], 03/10/2023 17:08:14 03/09/20 23 03/10/2023 CBC (INCL UDES DIFF/ PLT) MCV 80.7 fL 80.0-1 00.0 normal Not Available [facility] [address], [address], 03/10/2023 17:08:14 03/09/2003/10/2023 CBC (INCL UDES DIFF/ PLT) MCH 25.8 pg 27.0-3 3.0 low Not Available [address], [address], 03/10/2023 17:08:14 03/09/20 23 03/10/2023 CBC (INCL UDES DIFF/ PLT) MCHC 31.9 g/dL 32.0-3 6.0 low Not Available [address], [address], 03/10/2023 17:08:14 03/09/2003/10/2023 CBC (INCL UDES DIFF/ PLT) RDW 13.6 % 11.0-1 5.0 normal Not Available [address], [address], 03/10/2023 17:08:14 03/09/2003/10/2023 CBC (INCL UDES DIFF/ PLT) platelet count 220 thous and/u L 140-40 0 normal Not Available [address], [address], 03/10/2023 17:08:14 03/09/20 23 03/10/2023 CBC (INCL UDES DIFF/ PLT) MPV 11.0 fL 7.5-12 .5 normal Not Available [address], [address], 03/10/2023 17:08:14 03/09/20 23 03/10/2023 CBC (INCL UDES DIFF/ PLT) absolute neutrophils 3443 cells /uL 1500-7 800 normal Not Available [address], [address], 03/10/2023 17:08:14 03/09/20 23 03/10/2023 CBC (INCL UDES DIFF/ PLT) absolute lymphocytes 1132 cells /uL 850-39 00 normal Not Available [facility] [address], [address], 03/10/2023 17:08:14 03/09/20 23 03/10/2023 CBC (INCL UDES DIFF/ PLT) absolute monocytes 372 cells /uL 200-95 0 normal Not Available [address], [address], 03/10/2023 17:08:14 03/09/20 23 03/10/2023 CBC (INCL UDES DIFF/ PLT) absolute eosinophils 122 cells /uL 15-500 normal Not Available [facility] [address], [address], 03/10/2023 17:08:14 03/09/20 23 03/10/2023 CBC (INCL UDES DIFF/ PLT) absolute basophils 31 cells /uL 0-200 normal Not Available [facility] [address], [address], 03/10/2023 17:08:14 03/09/20 23 03/10/2023 CBC (INCL UDES DIFF/ PLT) neutrophils 67.5 % normal Not Available [facility] [address], [address], 03/10/2023 17:08:14 03/09/20 23 03/10/2023 CBC (INCL UDES DIFF/ PLT) lymphocytes 22.2 % normal Not Available [address], [address], 03/10/2023 17:08:14 03/09/20 23 03/10/2023 CBC (INCL UDES DIFF/ PLT) monocytes 7.3 % normal Not Available [address], [address], 03/10/2023 17:08:14 03/09/20 23 03/10/2023 CBC (INCL UDES DIFF/ PLT) eosinophils 2.4 % normal Not Available [address], [address], 03/10/2023 17:08:14 03/09/2003/10/2023 CBC (INCL UDES DIFF/ PLT) basophils 0.6 % normal Not Available [address], [address], 03/10/2023 17:08:14 03/09/2003/10/2023 T4, FREE T4, free 1.1 NG/dL 0.8-1. 8 normal Not Available [address], [address], 03/10/2023 17:08:14 03/09/2003/10/2023 TSH TSH 1.95 mIU/L 0.40-4 .50 normal Not Available [address], [address], 03/10/2023 17:08:15 03/09/2003/10/2023 VITAM IN D,25- OH,TO GENO,I A vitamin D,25-oh,tota l,ia 138 NG/mL 30-100 high Vitam in D Statu s 25-OH Vitam in D: Defic iency : <20 ng/mL Insuf ficie ncy: 20 - 29 ng/mL Optim al: > or = 30 ng/mL For 25-OH Vitam in D testi ng on patie nts on D2-adrono pplem entat ion and patie nts for whom quant itati on of D2 and D3 fract ions is requi red, the [facility](TM ) 25-OH VIT D, (D2,D 3), LC/MS /MS is recom tangela d: order code 97384 (clayton ents >2yrs ). See Note 1 Note 1 For addit ional infor anupama jimenez e refer to http: //timothy Melissa stDia gnost ics.c om/fa q/FAQ 199 (This link is being provi ded for infor laura maldonado/ tex dacosta purpo ses only. ) Not Available [facility] [address] [place], [address], 03/10/2023 17:08:16 03/09/2003/10/2023 HEMOG LOBIN A1C hemoglobin A1C 7.2 %_of_ total _HGB <5.7 high For someo ne witho ut known diabe paul, a hemog lobin A1c value of 6.5% or great er indic ates that they may have diabe paul and this shoul d be confi rmed with a follo w-up test. For someo ne with known diabe paul, a value <7% indic ates that their diabe paul is well contr olled and a value great er than or equal to 7% indic ates subop timal contr ol. A1c targe ts shoul d be indiv idual ized based on durat ion of diabe paul, age, comor bid condi tions , and other consi derat ions. Curre ntly, no conse nsus exist s regar ding use of hemog lobin A1c for diagn osis of diabe paul for child christina. Not Available [facility] [address] [place], [address], 03/10/2023 17:08:16 09/02/2009/03/2023 LIPID PANEL , [place] cholesterol, total 177 mg/dL <200 normal Not Available [facility] [address] [place], [address], 09/03/2023 15:49:20 09/02/2009/03/2023 LIPID PANEL , [place] HDL cholesterol 53 mg/dL > or = 50 normal Not Available [facility] [address] [place], [address], 09/03/2023 15:49:20 09/02/2009/03/2023 LIPID PANEL , [place] triglyceride s 184 mg/dL <150 high Not Available [facility] [address] [place], [address], 09/03/2023 15:49:20 09/02/2009/03/2023 LIPID PANEL , [place] LDL-choleste rol 96 mg/dL _(isis c) normal Refer ence range : <100 Huma able range <100 mg/dL for prima ry preve ntion ; <70 mg/dL for patie nts with CHD or diabe tic patie nts with > or = 2 CHD risk facto rs. LDL-C is now calcu lated using the Gertrude n-Hop kins steffu kenny n, which is a valid ated novel metho d danielei trang michele r accur acy than the Fried calin equat ion in the estim ation of LDL-C . Gertrude cancino SS et al. KELLY. 2013; 310(1 9): 2061- 2068 (http ://ed ucati on.Qu Kallie watkins [employer]. com/f aq/FA Q164) Not Available [facility] [address] [place], [address], 09/03/2023 15:49:20 09/02/2009/03/2023 LIPID PANEL , [place] chol/HDLC ratio 3.3 (calc ) <5.0 normal Not Available [facility] [address] [place], [address], 09/03/2023 15:49:20 09/02/2009/03/2023 LIPID PANEL , [place] non HDL cholesterol 124 mg/dL _(isis c) <130 normal For patie nts with diabe paul plus 1 major ASCVD risk facto r, treat ing to a non-H DL-C goal of <100 mg/dL (LDL- C of <70 mg/dL ) is consi milton ordaz optio n. Not Available [address] [address] [place], [address], 09/03/2023 15:49:20 09/02/2009/03/2023 ALBUM IN, RANDO M URINE W/CRE ATINI NE creatinine, random urine 84 mg/dL 20-275 normal Not Available [address] [address] [place], [address], 09/03/2023 15:49:21 09/02/20 23 09/03/2023 ALBUM IN, RANDO M URINE W/CRE ATINI NE albumin, urine 0.3 mg/dL see note: normal Refer ence Range : Refer ence Range Not estab lishe d Not Available [address] [address] [facility] [place], [address], 09/03/2023 15:49:21 09/02/2009/03/2023 ALBUM IN, RANDO M URINE W/CRE ATINI NE albumin/crea tinine ratio, random urine 4 mcg/m g_cre at <30 normal The ADA defin es abnor malit ies in album in excre tion as follo ws: Album inuri a Categ ory Resul t (mcg/ mg creat inine ) Ashley l to Mildl y incre ased <30 Moder ately incre ased 30-29 9 Sever archie incre ased > OR = 300 The ADA recom mends that at least two of three speci mens colle cted withi n a 3-6 month perio d be abnor mal befor e consi selin g a patie nt to be withi n a diagn ostic categ ory. Not Available [address], [address], 09/03/2023 15:49:21 09/02/2009/03/2023 CBC (INCL UDES DIFF/ PLT) white blood cell count 4.7 thous and/u L 3.8-10 .8 normal Not Available [address], [address], 09/03/2023 15:49:22 09/02/2009/03/2023 CBC (INCL UDES DIFF/ PLT) red blood cell count 4.94 rose on/uL 3.80-5 .10 normal Not Available [address], [address], 09/03/2023 15:49:22 09/02/2009/03/2023 CBC (INCL UDES DIFF/ PLT) hemoglobin 13.4 g/dL 11.7-1 5.5 normal Not Available [address], [address], 09/03/2023 15:49:22 09/02/2009/03/2023 CBC (INCL UDES DIFF/ PLT) hematocrit 39.6 % 35.0-4 5.0 normal Not Available [address], [address], 09/03/2023 15:49:22 09/02/2009/03/2023 CBC (INCL UDES DIFF/ PLT) MCV 80.2 fL 80.0-1 00.0 normal Not Available [address], [address], 09/03/2023 15:49:22 09/02/2009/03/2023 CBC (INCL UDES DIFF/ PLT) MCH 27.1 pg 27.0-3 3.0 normal Not Available [address], [address], 09/03/2023 15:49:22 09/02/2009/03/2023 CBC (INCL UDES DIFF/ PLT) MCHC 33.8 g/dL 32.0-3 6.0 normal Not Available [address], [address], 09/03/2023 15:49:22 09/02/2009/03/2023 CBC (INCL UDES DIFF/ PLT) RDW 13.8 % 11.0-1 5.0 normal Not Available [address], [address], 09/03/2023 15:49:22 09/02/2009/03/2023 CBC (INCL UDES DIFF/ PLT) platelet count 224 thous and/u L 140-40 0 normal Not Available [address], [address], 09/03/2023 15:49:22 09/02/2009/03/2023 CBC (INCL UDES DIFF/ PLT) MPV 10.5 fL 7.5-12 .5 normal Not Available [address], [address], 09/03/2023 15:49:22 09/02/2009/03/2023 CBC (INCL UDES DIFF/ PLT) absolute neutrophils 3003 cells /uL 1500-7 800 normal Not Available [address], [address], 09/03/2023 15:49:22 09/02/2009/03/2023 CBC (INCL UDES DIFF/ PLT) absolute lymphocytes 1227 cells /uL 850-39 00 normal Not Available [address], [address], 09/03/2023 15:49:22 09/02/20 23 09/03/2023 CBC (INCL UDES DIFF/ PLT) absolute monocytes 310 cells /uL 200-95 0 normal Not Available [address], [address], 09/03/2023 15:49:22 09/02/2009/03/2023 CBC (INCL UDES DIFF/ PLT) absolute eosinophils 132 cells /uL 15-500 normal Not Available [address], [address], 09/03/2023 15:49:22 09/02/2009/03/2023 CBC (INCL UDES DIFF/ PLT) absolute basophils 28 cells /uL 0-200 normal Not Available [address], [address], 09/03/2023 15:49:22 09/02/2009/03/2023 CBC (INCL UDES DIFF/ PLT) neutrophils 63.9 % normal Not Available [address], [address], 09/03/2023 15:49:22 09/02/20 23 09/03/2023 CBC (INCL UDES DIFF/ PLT) lymphocytes 26.1 % normal Not Available [address], [address], 09/03/2023 15:49:22 09/02/2009/03/2023 CBC (INCL UDES DIFF/ PLT) monocytes 6.6 % normal Not Available [address], [address], 09/03/2023 15:49:22 09/02/2009/03/2023 CBC (INCL UDES DIFF/ PLT) eosinophils 2.8 % normal Not Available [address], [address], 09/03/2023 15:49:22 09/02/20 23 09/03/2023 CBC (INCL UDES DIFF/ PLT) basophils 0.6 % normal Not Available [facility] [id number] [place], [address], 09/03/2023 15:49:22 09/02/2009/03/2023 T4, FREE T4, free 1.2 NG/dL 0.8-1. 8 normal Not Available [facility] [address] [place], [address], 09/03/2023 15:49:23 09/02/2009/03/2023 TSH TSH 3.29 mIU/L 0.40-4 .50 normal Not Available [facility] [address] [place], [address], 09/03/2023 15:49:24 09/02/2009/03/2023 HEMOG LOBIN A1C hemoglobin A1C 7.0 %_of_ total _HGB <5.7 high For someo ne witho ut known diabe paul, a hemog lobin A1c value of 6.5% or great er indic ates that they may have diabe paul and this shoul d be confi rmed with a follo w-up test. For someo ne with known diabe paul, a value <7% indic ates that their diabe paul is well contr olled and a value great er than or equal to 7% indic ates subop timal contr ol. A1c targe ts shoul d be indiv idual ized based on durat ion of diabe paul, age, comor bid condi tions , and other consi derat ions. Curre ntly, no conse nsus exist s kendra costello use of hemog lobin A1c for diagn osis of diabe paul for child christina. Not Available [facility] [address] [place], [address], 09/03/2023 15:49:25 09/03/2009/04/2023 COMPR EHENS TRISTA METAB OLIC PANEL , PLASM A glucose 153 mg/dL 65-99 high Fasti ng refer ence inter hernandez For someo ne witho ut known diabe paul, a gluco se value >125 mg/dL indic ates that they may have diabe paul and this shoul d be confi rmed with a follo w-up test. Not Available [address], [address], 09/04/2023 10:56:02 09/03/2009/04/2023 COMPR EHENS TRISTA METAB OLIC PANEL , PLASM A urea nitrogen (BUN) 30 mg/dL 7-25 high Not Available [address], [address], 09/04/2023 10:56:02 09/03/2009/04/2023 COMPR EHENS TRISTA METAB OLIC PANEL , PLASM A creatinine 1.15 mg/dL 0.60-0 .95 high Not Available [address], [address], 09/04/2023 10:56:02 09/03/2009/04/2023 COMPR EHENS TRISTA METAB OLIC PANEL , PLASM A eGFR 47 mL/mi n/1.7 3m2 > or = 60 low Not Available [address], [address], 09/04/2023 10:56:02 09/03/2009/04/2023 COMPR EHENS TRISTA METAB OLIC PANEL , PLASM A BUN/creatini ne ratio 26 (calc ) 6-22 high Not Available [address], [address], 09/04/2023 10:56:02 09/03/2009/04/2023 COMPR EHENS TRISTA METAB OLIC PANEL , PLASM A sodium 138 mmol/ L 135-14 6 normal Not Available [address], [address], 09/04/2023 10:56:02 09/03/2009/04/2023 COMPR EHENS TRISTA METAB OLIC PANEL , PLASM A potassium 3.9 mmol/ L 3.4-4. 8 normal Not Available [address], [address], 09/04/2023 10:56:02 09/03/2009/04/2023 COMPR EHENS TRISTA METAB OLIC PANEL , PLASM A chloride 99 mmol/ L 98-110 normal Not Available [address], [address], 09/04/2023 10:56:02 09/03/2009/04/2023 COMPR EHENS TRISTA METAB OLIC PANEL , PLASM A carbon dioxide 27 mmol/ L 20-32 normal Not Available [address], [address], 09/04/2023 10:56:02 09/03/2009/04/2023 COMPR EHENS TRISTA METAB OLIC PANEL , PLASM A calcium 10.3 mg/dL 8.6-10 .4 normal Not Available [address], [address], 09/04/2023 10:56:02 09/03/2009/04/2023 COMPR EHENS TRISTA METAB OLIC PANEL , PLASM A protein, total 7.5 g/dL 6.4-8. 4 normal Not Available [address], [address], 09/04/2023 10:56:02 09/03/2009/04/2023 COMPR EHENS TRISTA METAB OLIC PANEL , PLASM A albumin 4.2 g/dL 3.6-5. 1 normal Not Available [address], [address], 09/04/2023 10:56:02 09/03/2009/04/2023 COMPR EHENS TRISTA METAB OLIC PANEL , PLASM A globulin 3.3 g/dL_ (calc ) 2.2-4. 0 normal Not Available [address], [address], 09/04/2023 10:56:02 09/03/2009/04/2023 COMPR EHENS TRISTA METAB OLIC PANEL , PLASM A albumin/glob ulin ratio 1.3 (calc ) 0.9-2. 3 normal Not Available [address], [address], 09/04/2023 10:56:02 09/03/2009/04/2023 COMPR EHENS TRISTA METAB OLIC PANEL , PLASM A bilirubin, total 0.6 mg/dL 0.2-1. 2 normal Not Available [address], [address], 09/04/2023 10:56:02 09/03/2009/04/2023 COMPR EHENS TRISTA METAB OLIC PANEL , PLASM A alkaline phosphatase 135 U/L 37-153 normal Not Available [address], [address], 09/04/2023 10:56:02 09/03/2009/04/2023 COMPR EHENS TRISTA METAB OLIC PANEL , PLASM A AST 16 U/L 10-35 normal Not Available [address], [address], 09/04/2023 10:56:02 09/03/2009/04/2023 COMPR EHENS TRISTA METAB OLIC PANEL , PLASM A ALT 11 U/L 6-29 normal Not Available [address], [address], 09/04/2023 10:56:02 04/08/20 24 04/09/2024 LIPID PANEL , [place] cholesterol, total 171 mg/dL <200 normal Not Available [address], [address], 04/09/2024 15:04:52 04/08/20 24 04/09/2024 LIPID PANEL , [place] HDL cholesterol 50 mg/dL > or = 50 normal Not Available [address], [address], 04/09/2024 15:04:52 04/08/20 24 04/09/2024 LIPID PANEL , [place] triglyceride s 159 mg/dL <150 high Not Available [facility] [address], [address], 04/09/2024 15:04:52 04/08/20 24 04/09/2024 LIPID PANEL , [place] LDL-choleste rol 95 mg/dL _(isis c) normal Refer ence range : <100 Huma able range <100 mg/dL for prima ry preve ntion ; <70 mg/dL for patie nts with CHD or diabe tic patie nts with > or = 2 CHD risk facto rs. LDL-C is now calcu lated using the Gertrude cancino-Hop kins calcu kenny n, which is a valid ated novel metho d provi ding leny r accur acy than the Fried calin equat ion in the estim ation of LDL-C . Gertrude cancino SS et al. KELLY. 2013; 310(1 9): 2061- 2068 (http ://ed ucati on.Qu jameelCookBrite. com/f aq/FA Q164) Not Available [facility] [address], [address], 04/09/2024 15:04:52 04/08/20 24 04/09/2024 LIPID PANEL , [place] chol/HDLC ratio 3.4 (calc ) <5.0 normal Not Available [facility] [address], [address], 04/09/2024 15:04:52 04/08/20 24 04/09/2024 LIPID PANEL , [place] non HDL cholesterol 121 mg/dL _(isis c) <130 normal For patie nts with diabe paul plus 1 major ASCVD risk facto r, treat ing to a non-H DL-C goal of <100 mg/dL (LDL- C of <70 mg/dL ) is juan alberto car n. Not Available [address] [address] [place], [address], 04/09/2024 15:04:52 04/08/20 24 04/09/2024 ALBUM IN, RANDO M URINE W/CRE ATINI NE creatinine, random urine 47 mg/dL 20-275 normal Not Available [address] [address] [place], [address], 04/09/2024 15:04:53 04/08/20 24 04/09/2024 ALBUM IN, RANDO M URINE W/CRE ATINI NE albumin, urine 0.2 mg/dL see note: normal Refer ence Range : Refer ence Range Not estab lishe d Not Available [address] [address] [address], [place], [address], 04/09/2024 15:04:53 04/08/20 24 04/09/2024 ALBUM IN, RANDO M URINE W/CRE ATINI NE albumin/crea tinine ratio, random urine 4 mg/g_ creat <30 normal The ADA defin es abnor malit ies in album in excre tion as follo ws: Album inuri a Categ ory Resul t (mg/g creat inine ) Ashley l to Mildl y incre ased <30 Moder ately incre ased 30-29 9 Sever archie incre ased > OR = 300 The ADA recom mends that at least two of three speci mens colle cted withi n a 3-6 month perio d be abnor mal befor e consi selin g a patie nt to be withi n a diagn ostic categ ory. Not Available [address] [address] [place], [address], 04/09/2024 15:04:53 04/08/20 24 04/09/2024 COMPR EHENS TRISTA METAB OLIC PANEL glucose 134 mg/dL 65-99 high Fasti ng refer ence inter hernandez For someo ne witho ut known diabe paul, a gluco se value >125 mg/dL indic ates that they may have diabe paul and this shoul d be confi rmed with a follo w-up test. Not Available [facility] [address], [address], 04/09/2024 15:04:54 04/08/20 24 04/09/2024 COMPR EHENS TRISTA METAB OLIC PANEL urea nitrogen (BUN) 28 mg/dL 7-25 high Not Available [facility] [address], [address], 04/09/2024 15:04:54 04/08/20 24 04/09/2024 COMPR EHENS TRISTA METAB OLIC PANEL creatinine 1.03 mg/dL 0.60-0 .95 high Not Available [facility] [address], [address], 04/09/2024 15:04:54 04/08/20 24 04/09/2024 COMPR EHENS TRISTA METAB OLIC PANEL eGFR 54 mL/mi n/1.7 3m2 > or = 60 low Not Available [address], [address], 04/09/2024 15:04:54 04/08/20 24 04/09/2024 COMPR EHENS TRISTA METAB OLIC PANEL BUN/creatini ne ratio 27 (calc ) 6-22 high Not Available [facility] [address], [address], 04/09/2024 15:04:54 04/08/20 24 04/09/2024 COMPR EHENS TRISTA METAB OLIC PANEL sodium 138 mmol/ L 135-14 6 normal Not Available [facility] [address], [address], 04/09/2024 15:04:54 04/08/20 24 04/09/2024 COMPR EHENS TRISTA METAB OLIC PANEL potassium 3.7 mmol/ L 3.5-5. 3 normal Not Available [address], [address], 04/09/2024 15:04:54 04/08/20 24 04/09/2024 COMPR EHENS TRISTA METAB OLIC PANEL chloride 100 mmol/ L 98-110 normal Not Available [address], [address], 04/09/2024 15:04:54 04/08/20 24 04/09/2024 COMPR EHENS TRISTA METAB OLIC PANEL carbon dioxide 29 mmol/ L 20-32 normal Not Available [address], [address], 04/09/2024 15:04:54 04/08/20 24 04/09/2024 COMPR EHENS TRISTA METAB OLIC PANEL calcium 9.8 mg/dL 8.6-10 .4 normal Not Available [address], [address], 04/09/2024 15:04:54 04/08/20 24 04/09/2024 COMPR EHENS TRISTA METAB OLIC PANEL protein, total 7.0 g/dL 6.1-8. 1 normal Not Available [address], [address], 04/09/2024 15:04:54 04/08/20 24 04/09/2024 COMPR EHENS TRISTA METAB OLIC PANEL albumin 4.1 g/dL 3.6-5. 1 normal Not Available [address], [address], 04/09/2024 15:04:54 04/08/20 24 04/09/2024 COMPR EHENS TRISTA METAB OLIC PANEL globulin 2.9 g/dL_ (calc ) 1.9-3. 7 normal Not Available [address], [address], 04/09/2024 15:04:54 04/08/20 24 04/09/2024 COMPR EHENS TRISTA METAB OLIC PANEL albumin/glob ulin ratio 1.4 (calc ) 1.0-2. 5 normal Not Available [address], [address], 04/09/2024 15:04:54 04/08/20 24 04/09/2024 COMPR EHENS TRISTA METAB OLIC PANEL bilirubin, total 0.6 mg/dL 0.2-1. 2 normal Not Available [address], [address], 04/09/2024 15:04:54 04/08/20 24 04/09/2024 COMPR EHENS TRISTA METAB OLIC PANEL alkaline phosphatase 133 U/L 37-153 normal Not Available [address], [address], 04/09/2024 15:04:54 04/08/20 24 04/09/2024 COMPR EHENS TRISTA METAB OLIC PANEL AST 15 U/L 10-35 normal Not Available [address], [address], 04/09/2024 15:04:54 04/08/20 24 04/09/2024 COMPR EHENS TRISTA METAB OLIC PANEL ALT 12 U/L 6-29 normal Not Available [address], [address], 04/09/2024 15:04:54 04/08/20 24 04/09/2024 COMPR EHENS TRISTA METAB OLIC PANEL , PLASM A glucose 134 mg/dL 65-99 high Fasti ng refer ence inter hernandez For someo ne witho ut known diabe paul, a gluco se value >125 mg/dL indic ates that they may have diabe paul and this shoul d be confi rmed with a follo w-up test. Not Available [address], [address], 04/09/2024 15:04:55 04/08/20 24 04/09/2024 COMPR EHENS TRISTA METAB OLIC PANEL , PLASM A urea nitrogen (BUN) 28 mg/dL 7-25 high Not Available [address], [address], 04/09/2024 15:04:55 04/08/20 24 04/09/2024 COMPR EHENS TRISTA METAB OLIC PANEL , PLASM A creatinine 1.03 mg/dL 0.60-0 .95 high Not Available [address], [address], 04/09/2024 15:04:55 04/08/20 24 04/09/2024 COMPR EHENS TRISTA METAB OLIC PANEL , PLASM A eGFR 54 mL/mi n/1.7 3m2 > or = 60 low Not Available [address], [address], 04/09/2024 15:04:55 04/08/20 24 04/09/2024 COMPR EHENS TRISTA METAB OLIC PANEL , PLASM A BUN/creatini ne ratio 27 (calc ) 6-22 high Not Available [address], [address], 04/09/2024 15:04:55 04/08/20 24 04/09/2024 COMPR EHENS TRISTA METAB OLIC PANEL , PLASM A sodium 138 mmol/ L 135-14 6 normal Not Available [address], [address], 04/09/2024 15:04:55 04/08/20 24 04/09/2024 COMPR EHENS TRISTA METAB OLIC PANEL , PLASM A potassium 3.4 mmol/ L 3.4-4. 8 normal Not Available [address], [address], 04/09/2024 15:04:55 04/08/20 24 04/09/2024 COMPR EHENS TRISTA METAB OLIC PANEL , PLASM A chloride 100 mmol/ L 98-110 normal Not Available [address], [address], 04/09/2024 15:04:55 04/08/20 24 04/09/2024 COMPR EHENS TRISTA METAB OLIC PANEL , PLASM A carbon dioxide 29 mmol/ L 20-32 normal Not Available [address], [address], 04/09/2024 15:04:55 04/08/20 24 04/09/2024 COMPR EHENS TRISTA METAB OLIC PANEL , PLASM A calcium 9.8 mg/dL 8.6-10 .4 normal Not Available [address], [address], 04/09/2024 15:04:55 04/08/20 24 04/09/2024 COMPR EHENS TRISTA METAB OLIC PANEL , PLASM A protein, total 7.4 g/dL 6.4-8. 4 normal Not Available [address], [address], 04/09/2024 15:04:55 04/08/20 24 04/09/2024 COMPR EHENS TRISTA METAB OLIC PANEL , PLASM A albumin 4.1 g/dL 3.6-5. 1 normal Not Available [address], [address], 04/09/2024 15:04:55 04/08/20 24 04/09/2024 COMPR EHENS TRISTA METAB OLIC PANEL , PLASM A globulin 3.3 g/dL_ (calc ) 2.2-4. 0 normal Not Available [facility] [address], [address], 04/09/2024 15:04:55 04/08/20 24 04/09/2024 COMPR EHENS TRISTA METAB OLIC PANEL , PLASM A albumin/glob ulin ratio 1.2 (calc ) 0.9-2. 3 normal Not Available [address], [address], 04/09/2024 15:04:55 04/08/20 24 04/09/2024 COMPR EHENS TRISTA METAB OLIC PANEL , PLASM A bilirubin, total 0.6 mg/dL 0.2-1. 2 normal Not Available [address], [address], 04/09/2024 15:04:55 04/08/20 24 04/09/2024 COMPR EHENS TRISTA METAB OLIC PANEL , PLASM A alkaline phosphatase 133 U/L 37-153 normal Not Available [address], [address], 04/09/2024 15:04:55 04/08/20 24 04/09/2024 COMPR EHENS TRISTA METAB OLIC PANEL , PLASM A AST 15 U/L 10-35 normal Not Available [address], [address], 04/09/2024 15:04:55 04/08/20 24 04/09/2024 COMPR EHENS TRISTA METAB OLIC PANEL , PLASM A ALT 12 U/L 6-29 normal Not Available [address], [address], 04/09/2024 15:04:55 04/08/20 24 04/09/2024 CBC (INCL UDES DIFF/ PLT) white blood cell count 4.9 thous and/u L 3.8-10 .8 normal Not Available [address], [address], 04/09/2024 15:04:56 04/08/20 24 04/09/2024 CBC (INCL UDES DIFF/ PLT) red blood cell count 4.76 rose on/uL 3.80-5 .10 normal Not Available [address], [address], 04/09/2024 15:04:56 04/08/20 24 04/09/2024 CBC (INCL UDES DIFF/ PLT) hemoglobin 12.5 g/dL 11.7-1 5.5 normal Not Available [address], [address], 04/09/2024 15:04:56 04/08/20 24 04/09/2024 CBC (INCL UDES DIFF/ PLT) hematocrit 39.2 % 35.0-4 5.0 normal Not Available [address], [address], 04/09/2024 15:04:56 04/08/20 24 04/09/2024 CBC (INCL UDES DIFF/ PLT) MCV 82.4 fL 80.0-1 00.0 normal Not Available [address], [address], 04/09/2024 15:04:56 04/08/20 24 04/09/2024 CBC (INCL UDES DIFF/ PLT) MCH 26.3 pg 27.0-3 3.0 low Not Available [address], [address], 04/09/2024 15:04:56 04/08/20 24 04/09/2024 CBC (INCL UDES DIFF/ PLT) MCHC 31.9 g/dL 32.0-3 6.0 low Not Available [address], [address], 04/09/2024 15:04:56 04/08/20 24 04/09/2024 CBC (INCL UDES DIFF/ PLT) RDW 13.7 % 11.0-1 5.0 normal Not Available [address], [address], 04/09/2024 15:04:56 04/08/20 24 04/09/2024 CBC (INCL UDES DIFF/ PLT) platelet count 215 thous and/u L 140-40 0 normal Not Available [address], [address], 04/09/2024 15:04:56 04/08/20 24 04/09/2024 CBC (INCL UDES DIFF/ PLT) MPV 10.6 fL 7.5-12 .5 normal Not Available [address], [address], 04/09/2024 15:04:56 04/08/20 24 04/09/2024 CBC (INCL UDES DIFF/ PLT) absolute neutrophils 3195 cells /uL 1500-7 800 normal Not Available [address], [address], 04/09/2024 15:04:56 04/08/20 24 04/09/2024 CBC (INCL UDES DIFF/ PLT) absolute lymphocytes 1191 cells /uL 850-39 00 normal Not Available [address], [address], 04/09/2024 15:04:56 04/08/20 24 04/09/2024 CBC (INCL UDES DIFF/ PLT) absolute monocytes 392 cells /uL 200-95 0 normal Not Available [facility] [address], [address], 04/09/2024 15:04:56 04/08/20 24 04/09/2024 CBC (INCL UDES DIFF/ PLT) absolute eosinophils 103 cells /uL 15-500 normal Not Available [facility] [address], [address], 04/09/2024 15:04:56 04/08/20 24 04/09/2024 CBC (INCL UDES DIFF/ PLT) absolute basophils 20 cells /uL 0-200 normal Not Available [address], [address], 04/09/2024 15:04:56 04/08/20 24 04/09/2024 CBC (INCL UDES DIFF/ PLT) neutrophils 65.2 % normal Not Available [address], [address], 04/09/2024 15:04:56 04/08/20 24 04/09/2024 CBC (INCL UDES DIFF/ PLT) lymphocytes 24.3 % normal Not Available [address], [address], 04/09/2024 15:04:56 04/08/20 24 04/09/2024 CBC (INCL UDES DIFF/ PLT) monocytes 8.0 % normal Not Available [facility] [address], [address], 04/09/2024 15:04:56 04/08/20 24 04/09/2024 CBC (INCL UDES DIFF/ PLT) eosinophils 2.1 % normal Not Available [facility] [address], [address], 04/09/2024 15:04:56 04/08/20 24 04/09/2024 CBC (INCL UDES DIFF/ PLT) basophils 0.4 % normal Not Available [facility] [address], [address], 04/09/2024 15:04:56 04/08/20 24 04/09/2024 T4, FREE T4, free 1.2 NG/dL 0.8-1. 8 normal Not Available [facility] [address], [address], 04/09/2024 15:04:57 04/08/20 24 04/09/2024 TSH TSH 3.62 mIU/L 0.40-4 .50 normal Not Available [address] [address] [place], [address], 04/09/2024 15:04:58 09/15/20 24 09/16/2024 LIPID PANEL , [place] cholesterol, total 176 mg/dL <200 normal Not Available [facility] [address] [address] [place], [address], 09/16/2024 09:58:55 09/15/20 24 09/16/2024 LIPID PANEL , [place] HDL cholesterol 46 mg/dL > or = 50 low Not Available [address], [address], 09/16/2024 09:58:55 09/15/20 24 09/16/2024 LIPID PANEL , [place] triglyceride s 227 mg/dL <150 high If a non-f astin g speci men was colle cted, consi gustavo repea t trigl yceri de testi ng on a fasti ng speci men if clini deborah indic ated. Sarbjit alejandre et al. J. of Clin. Lipid ol. 2015; 9:129 -169. Not Available [address], [address], 09/16/2024 09:58:55 09/15/20 24 09/16/2024 LIPID PANEL , [place] LDL-choleste rol 96 mg/dL _(isis c) normal Refer ence range : <100 Huma able range <100 mg/dL for prima ry preve ntion ; <70 mg/dL for patie nts with CHD or diabe tic patie nts with > or = 2 CHD risk facto rs. LDL-C is now calcu lated using the Gertrude n-Hop kins calcu latio n, which is a valid ated novel metho d provi ding leny r accur acy than the Fried calin equat ion in the estim ation of LDL-C . Gertrude cancino SS et al. KELLY. 2013; 310(1 9): 2061- 2068 (http ://ed ucati on.Dayne banksCrowdSystemss. com/f aq/FA Q164) Not Available [address], [address], 09/16/2024 09:58:55 09/15/20 24 09/16/2024 LIPID PANEL , [place] chol/HDLC ratio 3.8 (calc ) <5.0 normal Not Available [address], [address], 09/16/2024 09:58:55 09/15/2009/16/2024 LIPID PANEL , [place] non HDL cholesterol 130 mg/dL _(isis c) <130 high For patie nts with diabe paul plus 1 major ASCVD risk facto r, treat ing to a non-H DL-C goal of <100 mg/dL (LDL- C of <70 mg/dL ) is consi eved a ender barrios c optio n. Not Available [address], [address], 09/16/2024 09:58:55 09/15/20 24 09/16/2024 COMPR EHENS TRISTA METAB OLIC PANEL , PLASM A glucose 148 mg/dL 65-139 high Non-f astin g refer ence inter hernandez Not Available [address] [address] [place], [address], 09/16/2024 09:58:57 09/15/20 24 09/16/2024 COMPR EHENS TRISTA METAB OLIC PANEL , PLASM A urea nitrogen (BUN) 26 mg/dL 7-25 high Not Available [address], [address], 09/16/2024 09:58:57 09/15/20 24 09/16/2024 COMPR EHENS TRISTA METAB OLIC PANEL , PLASM A creatinine 0.93 mg/dL 0.60-0 .95 normal Not Available [facility] [address], [address], 09/16/2024 09:58:57 09/15/20 24 09/16/2024 COMPR EHENS TRISTA METAB OLIC PANEL , PLASM A eGFR 61 mL/mi n/1.7 3m2 > or = 60 normal Not Available [address], [address], 09/16/2024 09:58:57 09/15/20 24 09/16/2024 COMPR EHENS TRISTA METAB OLIC PANEL , PLASM A BUN/creatini ne ratio 28 (calc ) 6-22 high Not Available [address], [address], 09/16/2024 09:58:57 09/15/20 24 09/16/2024 COMPR EHENS TRISTA METAB OLIC PANEL , PLASM A sodium 137 mmol/ L 135-14 6 normal Not Available [address], [address], 09/16/2024 09:58:57 09/15/20 24 09/16/2024 COMPR EHENS TRISTA METAB OLIC PANEL , PLASM A potassium 3.8 mmol/ L 3.4-4. 8 normal Not Available [address], [address], 09/16/2024 09:58:57 09/15/20 24 09/16/2024 COMPR EHENS TRISTA METAB OLIC PANEL , PLASM A chloride 100 mmol/ L 98-110 normal Not Available [address], [address], 09/16/2024 09:58:57 09/15/20 24 09/16/2024 COMPR EHENS TRISTA METAB OLIC PANEL , PLASM A carbon dioxide 29 mmol/ L 20-32 normal Not Available [address], [address], 09/16/2024 09:58:57 09/15/2009/16/2024 COMPR EHENS TRISTA METAB OLIC PANEL , PLASM A calcium 9.8 mg/dL 8.6-10 .4 normal Not Available [address], [address], 09/16/2024 09:58:57 09/15/20 24 09/16/2024 COMPR EHENS TRISTA METAB OLIC PANEL , PLASM A protein, total 7.0 g/dL 6.4-8. 4 normal Not Available [address], [address], 09/16/2024 09:58:57 09/15/2009/16/2024 COMPR EHENS TRISTA METAB OLIC PANEL , PLASM A albumin 4.1 g/dL 3.6-5. 1 normal Not Available [address], [address], 09/16/2024 09:58:57 09/15/2009/16/2024 COMPR EHENS TRISTA METAB OLIC PANEL , PLASM A globulin 2.9 g/dL_ (calc ) 2.2-4. 0 normal Not Available [address], [address], 09/16/2024 09:58:57 09/15/2009/16/2024 COMPR EHENS TRISTA METAB OLIC PANEL , PLASM A albumin/glob ulin ratio 1.4 (calc ) 0.9-2. 3 normal Not Available [address], [address], 09/16/2024 09:58:57 09/15/2009/16/2024 COMPR EHENS TRISTA METAB OLIC PANEL , PLASM A bilirubin, total 0.7 mg/dL 0.2-1. 2 normal Not Available [address], [address], 09/16/2024 09:58:57 09/15/20 24 09/16/2024 COMPR EHENS TRISTA METAB OLIC PANEL , PLASM A alkaline phosphatase 135 U/L 37-153 normal Not Available [address], [address], 09/16/2024 09:58:57 09/15/20 24 09/16/2024 COMPR EHENS TRISTA METAB OLIC PANEL , PLASM A AST 16 U/L 10-35 normal Not Available [address], [address], 09/16/2024 09:58:57 09/15/2009/16/2024 COMPR EHENS TRISTA METAB OLIC PANEL , PLASM A ALT 11 U/L 6-29 normal Not Available [address], [address], 09/16/2024 09:58:57 09/15/20 24 09/16/2024 CBC (INCL UDES DIFF/ PLT) white blood cell count 4.7 thous and/u L 3.8-10 .8 normal Not Available [address], [address], 09/16/2024 09:58:58 09/15/20 24 09/16/2024 CBC (INCL UDES DIFF/ PLT) red blood cell count 4.84 rose on/uL 3.80-5 .10 normal Not Available [address], [address], 09/16/2024 09:58:58 09/15/2009/16/2024 CBC (INCL UDES DIFF/ PLT) hemoglobin 12.9 g/dL 11.7-1 5.5 normal Not Available [address], [address], 09/16/2024 09:58:58 09/15/20 24 09/16/2024 CBC (INCL UDES DIFF/ PLT) hematocrit 40.7 % 35.0-4 5.0 normal Not Available [address], [address], 09/16/2024 09:58:58 09/15/20 24 09/16/2024 CBC (INCL UDES DIFF/ PLT) MCV 84.1 fL 80.0-1 00.0 normal Not Available [facility] [address], [address], 09/16/2024 09:58:58 09/15/20 24 09/16/2024 CBC (INCL UDES DIFF/ PLT) MCH 26.7 pg 27.0-3 3.0 low Not Available [facility] [address], [address], 09/16/2024 09:58:58 09/15/20 24 09/16/2024 CBC (INCL UDES DIFF/ PLT) MCHC 31.7 g/dL 32.0-3 6.0 low For adult s, a sligh t decre ase in the calcu lated MCHC value (in the range of 30 to 32 g/dL) is most likel y not clini deborah preston t; ksenia er, it shoul d be inter prete d with cauti on in [facility] [place] n with other red cell jasmyne eters and the patie nt's clini isis condi tion. Not Available [facility] [address], [address], 09/16/2024 09:58:58 09/15/20 24 09/16/2024 CBC (INCL UDES DIFF/ PLT) RDW 13.8 % 11.0-1 5.0 normal Not Available [facility] [address], [address], 09/16/2024 09:58:58 09/15/20 24 09/16/2024 CBC (INCL UDES DIFF/ PLT) platelet count 202 thous and/u L 140-40 0 normal Not Available [facility] [address] [place], [address], 09/16/2024 09:58:58 09/15/20 24 09/16/2024 CBC (INCL UDES DIFF/ PLT) MPV 11.0 fL 7.5-12 .5 normal Not Available [address], [address], 09/16/2024 09:58:58 09/15/20 24 09/16/2024 CBC (INCL UDES DIFF/ PLT) absolute neutrophils 2928 cells /uL 1500-7 800 normal Not Available [address], [address], 09/16/2024 09:58:58 09/15/20 24 09/16/2024 CBC (INCL UDES DIFF/ PLT) absolute lymphocytes 1227 cells /uL 850-39 00 normal Not Available [address], [address], 09/16/2024 09:58:58 09/15/20 24 09/16/2024 CBC (INCL UDES DIFF/ PLT) absolute monocytes 414 cells /uL 200-95 0 normal Not Available [address], [address], 09/16/2024 09:58:58 09/15/20 24 09/16/2024 CBC (INCL UDES DIFF/ PLT) absolute eosinophils 113 cells /uL 15-500 normal Not Available [address], [address], 09/16/2024 09:58:58 09/15/20 24 09/16/2024 CBC (INCL UDES DIFF/ PLT) absolute basophils 19 cells /uL 0-200 normal Not Available [address], [address], 09/16/2024 09:58:58 09/15/20 24 09/16/2024 CBC (INCL UDES DIFF/ PLT) neutrophils 62.3 % normal Not Available [address], [address], 09/16/2024 09:58:58 09/15/20 24 09/16/2024 CBC (INCL UDES DIFF/ PLT) lymphocytes 26.1 % normal Not Available [address], [address], 09/16/2024 09:58:58 09/15/20 24 09/16/2024 CBC (INCL UDES DIFF/ PLT) monocytes 8.8 % normal Not Available [facility] [address], [address], 09/16/2024 09:58:58 09/15/20 24 09/16/2024 CBC (INCL UDES DIFF/ PLT) eosinophils 2.4 % normal Not Available [address], [address], 09/16/2024 09:58:58 09/15/20 24 09/16/2024 CBC (INCL UDES DIFF/ PLT) basophils 0.4 % normal Not Available [address], [address], 09/16/2024 09:58:58 09/15/20 24 09/16/2024 T4, FREE T4, free 1.2 NG/dL 0.8-1. 8 normal Not Available [address], [address], 09/16/2024 09:58:59 09/15/2009/16/2024 TSH TSH 2.87 mIU/L 0.40-4 .50 normal Not Available [address], [address], 09/16/2024 09:59:00 09/15/2009/16/2024 HEMOG LOBIN A1C hemoglobin A1C 7.6 %_of_ total _HGB <5.7 high For someo ne witho ut known diabe paul, a hemog lobin A1c value of 6.5% or great er indic ates that they may have diabe paul and this shoul d be confi rmed with a follo w-up test. For someo ne with known diabe paul, a value <7% indic ates that their diabe paul is well contr olled and a value great er than or equal to 7% indic ates subop timal contr ol. A1c targe ts shoul d be indiv idual ized based on durat ion of diabe paul, age, comor bid condi tions , and other consi derat ions. Curre ntly, no conse nsus exist s kendra costello use of hemog lobin A1c for diagn osis of diabe paul for child christina. Not Available [facility] [address] , [place], [address], 09/16/2024 09:59:01 09/22/20 22 09/22/2022 MAMMO , diagn ostic , unila teral No observ ation record ed. [id number], [place], [address], 01/07/2023 08:14:18 10/09/20 22 10/09/2022 DEXA No observ ation record ed. [id number] [facility] 2022 Nayeli Sanchez [facility] [address], [place], [address], 01/07/2023 08:14:18 09/22/20 23 09/22/2023 MAMMO , scree patric, digit al, bilat eral No observ ation record ed. [address], [place], [address], 09/22/2023 14:37:52 08/08/20 24 08/05/2024 US, echoc ardio gram No observ ation record ed. [address] [facility] 2325 [facility] [address], [place], [address], 08/08/2024 08:53:49 08/08/20 24 08/05/2024 US, echoc ardio gram No observ ation record ed. [address] [facility] 2325 [facility] [address], [place], [address], 08/08/2024 08:54:49 09/26/20 24 09/26/2024 CT, angio gram, chest , w/ contr ast No observ ation record ed. [place] [id number] Not Available 2023 19:07:50 11/03/20 24 11/01/2024 MAMMO , scree patric, bilat eral No observ ation record ed. [address] [facility] [address], [place], [address], 11/03/2024 13:26:04 Result Notes None recorded. Problems Name Problem SNOMED Code Status Onset Date Resolution Date Notes Provider Name and Address Organization Details Recorded Time Mitral valve disorder 31405407 Active Not Available [facility] 3 08:09:54 Benign essential hypertensi on 8455923 Active Not Available [facility] 3 08:09:54 Mammograph ic mass of left breast 7313645947961 9103 Active 2021 Not Available [facility] 3 08:09:54 Acute sinusitis 25997195 Active 2022 Not Available [facility] 3 08:09:55 Serum creatinine outside reference range 334358667 Active Not Available [facility] 3 08:09:55 Non-toxic nodular goiter 960066398 Active Not Available [facility] 3 08:09:55 Malignant tumor of breast 497554807 Active 2021 Not Available [facility] 3 08:09:55 Pure hyperchole sterolemia 150537842 Active Not Available [facility] 3 08:09:55 Current tear of medial cartilage AND/OR meniscus of knee Active Not Available [facility] 3 08:09:55 Knee pain Active Not Available [facility] 3 08:09:55 Type 2 diabetes mellitus without complicati on 991674107 Active 2018 Not Available [facility] 3 08:09:55 Vitamin D deficiency 70592104 Active Not Available [facility] 3 08:09:55 Osteoarthr itis 550742388 Active Not Available [facility] 3 08:09:55 Chronic kidney disease stage 2 194163215 Active 2021 Not Available [facility] 3 08:09:55 Atrial fibrillati on 93656734 Active Not Available [facility] 3 08:09:55 Thoracic aortic aneurysm without rupture 58259505 Active 2023 Brianna mejia [place] [employer] 4 12:15:52 Problem Notes None recorded. Procedures Surgical History Date Name Laterality Status Provider Name and Address Organization Details Recorded Time 3 Medicare Wellness CPT Code, subsequent completed Kelly Rm RN [place] [employer] [facility] [employer] 02/24/2023 10:48:16 Imaging Results Imaging Date Name Status LastModified by Organization Details LastModified Time 10/09/2022 DEXA completed [id number] [facility] 2022 Nayeli Sanchez [facility] [address], [place], [address], 01/07/2023 08:14:18 09/22/2022 MAMMO, diagnostic, unilateral completed MIGRATION.[id number] [address], [address], 01/07/2023 08:14:18 09/22/2023 MAMMO, screening, digital, bilateral completed [email or web address] [place] [address] [place] [address], [address], 09/22/2023 14:37:52 08/05/2024 US, echocardiogram completed [address] [facility] 23[address] [facility] [address], [place], [address], 08/08/2024 08:53:49 08/05/2024 US, echocardiogram [place] [address] [address] [facility] 23[address] [facility] [address], [place], [address], 08/08/2024 08:54:49 09/26/2024 CT, angiogram, chest, w/ contrast [place] [address] Information not available 09/26/2024 19:07:50 11/01/2024 MAMMO, screening, bilateral completed [email or web address] [place] [address] [address] [facility] [address], [place], [address], 11/03/2024 13:26:04 Procedure Notes None recorded. Medical Equipment None Reported. Allergies Allergen ID Allergen Name Allergen Category Reaction Reaction Severity Criticality Documentation Date Start Date Code Code System Note Provider Name and Address Organization Details Recorded Time Coreg medicatio n Not available Not available Not available 01/07/2023 82581 1 RxNorm Hair loss Not Available [facility] 08:14:13 Medications Name Sig Start Date Stop [...] Available Not Available Vitals Date Recorded Body mass index (BMI) Body height Oxygen saturation Oxygen saturation in Arterial blood by Pulse oximetry Heart rate Body temperature Body weight Systolic blood pressure Diastolic blood pressure Provider Name and Address Organization Details Last Updated DateTime 2 30.6 kg/m2 162.56 cm 100 % 100 % 60 /min 95.5 [degF] 81490.4 4 g 122 mm[Hg] 70 mm[Hg] Not Available [facility] 3 08:08:28 Date Recorded Body height Body mass index (BMI) Body weight Heart rate Body temperature Oxygen saturation Oxygen saturation in Arterial blood by Pulse oximetry Systolic blood pressure Diastolic blood pressure Provider Name and Address Organization Details Last Updated DateTime 3 162.56 cm 29.5 kg/m2 27845.8 9 g 72 /min 97 [degF] 95 % 95 % 124 mm[Hg] 84 mm[Hg] Becka Savanahrobert [employer] 3 10:43:43 Date Recorded Body height Body mass index (BMI) Body weight Heart rate Body temperature Oxygen saturation Oxygen saturation in Arterial blood by Pulse oximetry Systolic blood pressure Diastolic blood pressure Provider Name and Address Organization Details Last Updated DateTime 3 162.56 cm 30.6 kg/m2 01894.4 4 g 61 /min 97 [degF] 98 % 98 % 124 mm[Hg] 78 mm[Hg] Becka Sutton [employer] 3 10:57:25 Date Recorded Body height Body mass index (BMI) Body weight Heart rate Body temperature Oxygen saturation Oxygen saturation in Arterial blood by Pulse oximetry Systolic blood pressure Diastolic blood pressure Provider Name and Address Organization Details Last Updated DateTime 4 162.56 cm 30.2 kg/m2 45140.2 6 g 86 /min 97.5 [degF] 96 % 96 % 120 mm[Hg] 84 mm[Hg] CYNDEE James [employer] 4 11:12:13 Date Recorded Body height Body mass index (BMI) Body weight Heart rate Body temperature Oxygen saturation Oxygen saturation in Arterial blood by Pulse oximetry Systolic blood pressure Diastolic blood pressure Provider Name and Address Organization Details Last Updated DateTime 4 162.56 cm 30.9 kg/m2 65510.6 3 g 67 /min 97 [degF] 96 % 96 % 120 mm[Hg] 80 mm[Hg] CYNDEE James [place] - [facility] 4 11:44:28 Social History Question Answer Notes LastModified by Organizat ion Details LastModified Time Tobacco Smoking Status Never Smoker Not Available [facility] 01/07/2023 08:06:32 Do You Have An Advance Directive? Yes MIGRATION.87748 76006 Information not available 01/07/2023 What Is Your Level Of Alcohol Consumption? None MIGRATION.59488 64119 Information not available 01/07/2023 Are You Blind Or Do You Have Difficulty Seeing? No MIGRATION.25575 70941 Information not available 01/07/2023 Are You Deaf Or Do You Have Serious Difficulty Hearing? Yes Has Hearing Aid But Doesnt Wear It MIGRATION.59944 52397 Information not available 01/07/2023 What Type Of Diet Are You Following? REGULAR MIGRATION.97852 19143 Information not available 01/07/2023 Have There Been Any Changes To Your Family Or Social Situation? No MIGRATION.55385 98842 Information not available 01/07/2023 What Is The Fluoride Status Of Your Home? Unknown Information not available 02/24/2023 Are There Any Guns Present In Your Home? No MIGRATION.62586 46226 Information not available 01/07/2023 Do You Use Insect Repellent Routinely? No MIGRATION.23979 56618 Information not available 01/07/2023 Where Do You Live? [place] MIGRATION.98443 73502 Information not available 01/07/2023 Guns Present In The Home? No [email or web address] Information not available 02/24/2023 Are You Able To Care For Yourself? Yes [email or web address] Information not available 02/24/2023 Are You Blind Or Do Yo Have Difficulty Seeing? No [email or web address] Information not available 02/24/2023 Are You Deaf Or Do You Have Serious Difficulty Hearing? Yes [email or web address] Information not available 02/24/2023 Live Alone Of With Others? Alone [email or web address] Information not available 02/24/2023 Do You Have A Medical Power Of Passenger Coach Driver? Yes MIGRATION.69275 01062 Information not available 01/07/2023 What Was The Date Of Your Most Recent Tobacco Screening? 02/24/2023 Information not available 02/24/2023 Do You Have Any Pets? No MIGRATION.53097 87682 Information not available 01/07/2023 What Is Your Relationship Status? [email or web address] Information not available 02/24/2023 Do You Use Your Seat Belt Or Car Seat Routinely? Yes MIGRATION.31107 70919 Information not available 01/07/2023 Do You Have Smoke And Carbon Monoxide Detectors In Your Home? Yes MIGRATION.76233 62674 Information not available 01/07/2023 Are You Passively Exposed To Smoke? No MIGRATION.68885 55316 Information not available 01/07/2023 Are There Any Smokers In Your House? No MIGRATION.76542 45421 Information not available 01/07/2023 Do You Use Sunscreen Routinely? No MIGRATION.39445 04255 Information not available 01/07/2023 Have You Recently Traveled Abroad? No MIGRATION.36665 48477 Information not available 01/07/2023 Do You Have Any Dietary Restrictions? No MIGRATION.04707 70183 Information not available 01/07/2023 Sex: Unknown Functional Status Question Answer Note LastModified by Organizat ion Details LastModified Time Do you have difficulty walking or climbing stairs? No MIGRATION.7048407 026 Information not available 01/07/2023 Do you have transportation difficulties? No MIGRATION.5169697 026 Information not available 01/07/2023 Are you able to walk? YESWOREST MIGRATION.4929213 026 Information not available 01/07/2023 Do you have difficulty doing errands alone? No MIGRATION.3826855 026 Information not available 01/07/2023 Are you able to care for yourself? Yes MIGRATION.2001208 026 Information not available 01/07/2023 Do you have difficulty dressing or bathing? No MIGRATION.1398554 026 Information not available 01/07/2023 What is your exercise level? Occasional [email or web address] Information not available 02/24/2023 Mental Status Question Answer Note LastModified by Organizat ion Details LastModified Time Do you have difficulty concentrating, remembering or making decisions? No MIGRATION.817881276 6 Information not available 01/07/2023 Family History Nothing Reported Notes:Mother 58 from ar teriosclerotic heart disease Father 62 from arteriosclerotic heart disease Five brothers two living. Both have arteriosclerotic heart disease One brother of drowning and two from arteriosclerotic heart disease. Two sisters one living. One has arteriosclerotic heart disease and the other of complications of dementia Medical History Condition Response BLINDNESS N NERVE DISEASE N RHEUMATIC FEVER N BLADDER PROBLEMS N KIDNEY STONES N MRSA N OTHER # 1 N [...] HAVE YOU BEEN HOSPITALIZED OR SEEN IN [facility] IN THE PAST YEAR ? N ATHEROSCLEROSIS [...] Details Recorded Time SARS-COV-2 (COVID-19) vaccine, UNSPECIFIED completed Not Available [facility] 01/07/2023 08:14:07 Past Encounters Encounter ID Performer Location Encounter Start Date Encounter Closed Date Diagnosis/Indication Diagnosis SNOMED-CT Code Diagnosis ICD10 Code [id number] [facility] [place] [address] [place] [address] 03/26/2021 00:00:00 03/26/2021 12:07:53 [id number] [facility] [place] [address] [place] [address] [place] [address] 08/13/2021 00:00:00 08/13/2021 12:03:31 [id number] [facility] [place] [address] [facility] [address] [place] [address] 08/27/2021 00:00:00 08/27/2021 10:58:24 [id number] [facility] shle[facility] [place] [address] 12/17/2021 00:00:00 12/17/2021 11:52:56 [id number] [facility] Timmyvi shelley [facility] [place] [address] 04/15/2022 00:00:00 04/15/2022 11:11:20 [id number] [facility] Timmyvi llcathy [facility] [place] [address] 08/12/2022 00:00:00 08/12/2022 12:07:13 [id number] Denis Rich MD [facility] [place] [address] [place] [address] [place] [address] 02/24/2023 10:39:04 02/24/2023 11:19:35 Adult health examination 802707881 Z00.00 Screening for disorder 399869795 Z13.9 Benign ess ential hypertension 8065471 I10 Atrial fibrillation 4943 6004 I48.91 Malignant tumor of breast 848027996 C50.919 Pure hypercholesterolemia 488836829 E78.00 Type 2 adrian betes mellitus without complication 171194516 E11.9 Vitamin D deficiency 347 65117 E55.9 [id number] Denis Rich MD [facility] Internal Med [facility] [address] [facility] [place] [address] 08/25/2023 10:38:18 08/25/2023 11:21:34 Benign essential hypertension 6136096 I10 Atrial fibrillation 4943 6004 I48.91 Pure hypercholesterolemia 417024554 E78.00 Type 2 adrian betes mellitus without complication 964662419 E11.9 Chronic ki dney disease stage 2 342672066 N18.2 [id number] Denis Rich MD [facility] Internal Med [facility] [address] [place] [address] y , [place] [address] 03/08/2024 11:04:55 03/08/2024 11:32:59 Benign essential hypertension 4574946 I10 Atrial fibrillation 4943 6004 I48.91 Pure hypercholesterolemia 227042920 E78.00 Type 2 adrian betes mellitus without complication 636026968 E11.9 [id number] Denis Rich MD [facility] Internal [facility] 24 [address] [facility] 24 [place] [address] 09/14/2024 11:39:13 09/14/2024 12:21:55 Benign essential hypertension 5597309 I10 Atrial fibrillation 4943 6004 I48.91 Pure hypercholesterolemia 477507644 E78.00 Type 2 adrian betes mellitus without complication 021670056 E11.9 Health Concerns Section Related Observation LastModified by Organization Detai ls LastModified Time None Recorded Concern Status LastModified by Organization Details LastModified Time None Recorded Advance Directives Directive Y: Payers Encounter Date Sequence Insurance Name Policy Number Policy Rayo Covered Member ID Rayo Member ID Guarantor Name 02/24/2023 1 [facility] (MEDICARE REPLACEMENT/A DVANTAGE - HMO) [id number] Ashley Ortiz [id number] Ashely Ortiz 08/25/2023 1 [facility] (MEDICARE REPLACEMENT/A DVANTAGE - HMO) [id number] Ashley Ortiz [id number] Ashley Torresn 03/08/2024 1 [facility] (MEDICARE REPLACEMENT/A DVANTAGE - HMO) [id number] Ashley Torresn [id number] Ashley Torresn 09/14/2024 1 [facility] (MEDICARE REPLACEMENT/A DVANTAGE - HMO) [id number] Ashley Torresn [id number] Ashley Torresn Notes Date Note Type Note Provider Name and Address Organization Details Recorded Time 02/25/20 23 text/htm l Patient Name: Ashley Rdzate Of Service: Thursday ( 02.24.2023 ): 1940 Age: 82 There has been approximately a 6 lb weight loss since 08/12/2022. This represents approximately a 3.4% change in weight. Weight change attributable to lifestyle changes. Vital Signs:Blood Pressure: Sitting Rt. Arm 124/84Pulse: Sitting 72 /min and RegularRespirations: 12Height 67 in or 1.7 mWeight 172 lb or 78.0 kgBMI 26.9Temperature: 97 F or 36.1 CPulse Oximetry: 95 % at rest on no oxygen Chief Complaint: Addressed in HPI Problems or conditions discussed in the HPI were the only ones reviewed during the encounter.Only social and family history addressed in the HPI were reviewed during this encounter. A significant, separate E/M service was performed to evaluate the current and new problems. Attendant(s): None Constitutional and Systemic Symptoms: none Medication Reconciliation: from medication list. History of Present Illness Reviewed the findings of the preventative health visit. Addressed all areas with the patient, patient's family or caregivers. Preventative examinations and testing immunizations - vaccinations, colonic neoplasm screening, mammograms, LDCT thorax and DEXA Scan all reviewed and ordered where patient was amenable to the recommendations. Cognitive function was normal. Depression addressed and where necessary medications were adjusted or instituted. End of life and living will briefly discussed with patient and where these can be filled out and legally executed. Other blood and imaging studies were ordered if considered necessary. Other recommendations may be found in the encounter note. #1. Essential Hypertension: Stage: Stage I Interval Neurological Complaints no headaches, dizziness, weakness, visual changes, ataxia, aphasia and apraxia. No shortness of breath, orthopnea or cardiovascular symptoms. No other symptoms related to end organ damage. Pressure has been under excellent control. Currently normal. No other end organ symptoms or findings. Therapy reviewed regarding management of hypertension and includes salt restriction and Amlodipine and Moduretic. #2. Atrial Fibrillation: Type: Paroxysmal with recurrent episodes lasting less than 7 days. Further classification: Non-valvular. Associated history of none. No attending hx of any shortness of breath, palpitations, syncopal or neurological symptoms. Current medications: no specific medication. Rate control: controlled ventricular response [id number] Criteria: hypertension, Age > 75 and and considered moderate risk for embolic phenomenon. Anticoagulation: ASA per cardiology #3. Type II Hypercholesterolaemia: Currently taking medication and tolerating well. No interval complaints of any muscle pain or arthralgia. No significant liver changes with medications. Last lipid panel: fair control. Therapy reviewed regarding treatment of cholesterol management and include diet and Atorvastatin Calcium. #4. Type II Diabetes: Has had no polyuria polyphagia or polydipsia. Has had no hypoglycemic like responses. No new history of any numbness, tingling, weakness or visual problems. No nausea, anorexia or other constitutional symptoms. There has been no foot problems or non healing lesions. The last HAIC was DCCT HAIC: 6.9 Calculated MB mg%. Average blood sugars 125-150 mg%. Checking sugars : infrequently Medication Types Include: Metformin Secondary complications include none. Macro-vascular complications include none. Therapy reviewed regarding diabetic management and include Glucophage Compliance: good Renal Protection: calcium blockers Lipid management: statins Urinary microalbumin: A1 . Ophthalmological: has not seen eyed doctor in last year and instructed to make appointment with the e commerce merchant or leave specialist #5. Hx of Ca of the left breast(s). Sub classification: see oncology records. Metastasis: None Current Medications: none..Medication List Reviewed and Reconciled 3Amlodipine 5 MG (TABLET - ORAL) One DailyModuretic 5 MG ANHYDROUS-50 MG (TABLET - ORAL) One Daily For SwellingVitamin D DailyAspirin 325 MG One Daily For VascularAtorvastatin Calcium 40 MG (TABLET - ORAL) One DailyGlucophage 1 GM (TABLET - ORAL) One Twice A Day Denis Rich MD [address] [facility], [place], [address], [facility] 02/24/2023 11:08:42 08/25/20 23 text/htm l Patient Name: Ashley Mayse Of Service: Thursday ( 08.25.2023 ): 1940 Age: 83 There has been approximately a 6 lb weight gain since 02/24/2023. This represents approximately a 3.5% change in weight. Weight change attributable to lifestyle changes. Vital Signs:Blood Pressure: Sitting Rt. Arm 124/78Pulse: Sitting 61 /min and RegularRespiratory Rate: 12Height 64 in or 1.6 mWeight 178 lb or 80.7 kgBMI 30.6Temperature: 97 F or 36.1 CPulse Oximetry: 98 % at rest on no oxygen Chief Complaint: Addressed in HPI Problems or conditions discussed in the HPI were the only ones reviewed during the encounter.Only social and family history addressed in the HPI were reviewed during this encounter. Attendant(s): NoneConstitutional and Systemic Symptoms:none Medication Reconciliation: from medication list. History of Present Illness #1. Essential Hypertension: [...] of hypertension and includes salt restriction and Amlodipine and Moduretic. #2. Atrial Fibrillation: Type: Paroxysmal with recurrent episodes lasting less than 7 days. Further classification: Non-valvular. Associated history of essential hypertension and diabetes. No attending hx of any shortness of breath, palpitations, syncopal or neurological symptoms. Current medications: no specific medication. Rate control: controlled ventricular response [id number] Criteria: hypertension, Age > 75 and and considered low risk for embolic phenomenon. Anticoagulation: ASA per cardiology #3. Type II Hypercholesterolaemia: Currently taking medication and tolerating well. No interval complaints of any muscle pain or arthralgia. No significant liver changes with medications. Last lipid panel: fair control. Therapy reviewed regarding treatment of cholesterol management and include diet and Atorvastatin Calcium. #4. Type II Diabetes: Has had no polyuria polyphagia or polydipsia. Has had no hypoglycemic like responses. No new history of any numbness, tingling, weakness or visual problems. No nausea, anorexia or other constitutional symptoms. There has been no foot problems or non healing lesions. The last HAIC was DCCT HAIC: 7.2 Calculated MB mg%. Average blood sugars 125-150 mg%. Checking sugars : not at all Medication Types Include: Metformin Secondary complications include none. Macro-vascular complications include none. Therapy reviewed regarding diabetic management and include Glucophage Compliance: fair Renal Protection: calcium blockers Lipid management: statins Urinary microalbumin: A1 . Ophthalmological: has seen eye doctor within the last year #5. History of chronic renal failure currently doing well. Currently is not followed by a disability specialist. Stage: CKD-2. Albumin Stage: A1. There has been no change in urine output or color. No fever or chills.Medication List Reviewed and Reconciled 08/25/2023mlodipine 5 MG (TABLET - ORAL) One DailyModuretic 5 MG ANHYDROUS-50 MG (TABLET - ORAL) One Daily For SwellingVitamin D DailyAspirin 325 MG One Daily For VascularAtorvastatin Calcium 40 MG (TABLET - ORAL) One DailyGlucophage 1 GM (TABLET - ORAL) One Twice A DayADRs List Reviewed 08/25/2023oreg Hair LossVaccination and Kpjagrxqpjpf1027-51 Covid 19 Elijah & JohnsonSurgical HistoryLeft Breast Biopsy, Left Knee Surgery, Mitral Valve Repair, TonsillectomyPreventative Testing Confirmed by Our Jwdtoip5303/09/2023 ALBUMIN 4.1 G/DL N003/09/2023 MICRO ALBUMIN 0.2 MG/DL N003/09/2023 HAIC 7.2 % OF TOTAL HGB 10/09/2022 DEXA SCAN09/22/2022 MAMMOGRAM COLONOSCOPY (10 YEARS) 06/15/2024Social HistoryDoes not smokeDoes not drinkWorks as a beauticianFamily HistoryMother 58 from arteriosclerotic heart diseaseFather 62 from arteriosclerotic heart diseaseFive brothers two living. Both have arteriosclerotic heart disease One brother of drowning and two from arteriosclerotic heart disease.Two sisters one living. One has arteriosclerotic heart disease and the other of complications of dementiaMenarche 14 Menopause 55 A0 Denis Rich MD [address] [facility], [facility] [address], [place], [address], [place] [facility] 08/25/2023 11:17:48 03/08/20 24 text/htm l Patient Name: Ashley Mayes Of Service: Thursday ( 03.08.2024 ): 1940 Age: 83 There has been approximately a 2 lb weight loss since 08/25/2023. This represents approximately a 1.1% change in weight. Weight change attributable to lifestyle changes. Vital Signs:Blood Pressure: Sitting Rt. Arm 120/84Pulse: Sitting 86 /min and RegularRespiratory Rate: 12Height 64 in or 1.6 mWeight 176 lb or 79.8 kgBMI 30.2Temperature: 97.5 F or 36.4 CDCCT HAIC: 7.0 Calculated MB mg%Pulse Oximetry: 96 % at rest on no oxygen Chief Complaint: Addressed in HPI Problems or conditions discussed in the HPI were the only ones reviewed during the encounter.Only social and family history addressed in the HPI were reviewed during this encounter. Attendant(s): NoneConstitutional and Systemic Symptoms:none Medication Reconciliation: from medication list. History of Present Illness #1. Essential Hypertension: [...] of hypertension and includes salt restriction and Amlodipine and Moduretic. #2. Atrial Fibrillation: Type: Paroxysmal with recurrent episodes lasting less than 7 days. Further classification: Non-valvular. Associated history of HTN. No attending hx of any shortness of breath, palpitations, syncopal or neurological symptoms. Current medications: no specific medication. Rate control: controlled ventricular response [id number] Criteria: hypertension, Age > 75 and and considered moderate risk for embolic phenomenon. Anticoagulation: ASA per cardiology #3. Type II Hypercholesterolaemia: Currently taking medication and tolerating well. No interval complaints of any muscle pain or arthralgia. No significant liver changes with medications. Last lipid panel: fair control. Therapy reviewed regarding treatment of cholesterol management and include diet and Atorvastatin Calcium. #4. Type II Diabetes: Has had no polyuria polyphagia or polydipsia, polyphagia, polydipsia, blurring of vision and poorly healing skin lesions. Has had no hypoglycemic like responses. No new history of any numbness, tingling, weakness or visual problems. No nausea, anorexia or other constitutional symptoms. There has been no foot problems or non healing lesions. The last HAIC was DCCT HAIC: 7.0 Calculated MB mg%. Average blood sugars 100-115 mg%. Checking sugars : infrequently Medication Types Include: Metformin Secondary complications include none. Macro-vascular complications include none. Therapy reviewed regarding diabetic management and include Glucophage Compliance: good Renal Protection: not required at this stage Lipid management: statins Urinary microalbumin: not performed recently . Ophthalmological: has seen eye doctor within the last year Active Medication ListAmlodipine 5 MG (TABLET - ORAL) One DailyModuretic 5 MG ANHYDROUS-50 MG (TABLET - ORAL) One Daily For SwellingAspirin 325 MG One Daily For VascularAtorvastatin Calcium 40 MG (TABLET - ORAL) One DailyGlucophage 1 GM (TABLET - ORAL) One Twice A Day Adverse Drug Reactions ReviewedCoreg Hair Loss Vaccination and Azeyrzmvnmdr5257-21 Covid 19 [facility] Vkvccxx7250-02 Left Breast Noogpa1898-85 Left Knee Xteqkpj6684-35 Mitral Valve Qeapwd9853-87 Tonsillectomy Preventative Gdauyho3209/03/2023 ALBUMIN 4.2 G/DL N1 MICRO ALBUMIN 0.3 MG/DL N1 HAIC 7.0 % OF TOTAL HGB 10/09/2022 DEXA SCAN09/22/2022 MAMMOGRAM COLONOSCOPY (10 YEARS) 06/15/2024 Social HistoryDoes not smokeDoes not drinkWorks as a beauticianFamily HistoryMother 58 from arteriosclerotic heart diseaseFather 62 from arteriosclerotic heart diseaseFive brothers two living. Both have arteriosclerotic heart disease One brother of drowning and two from arteriosclerotic heart disease.Two sisters one living. One has arteriosclerotic heart disease and the other of complications of dementiaMenarche 14 Menopause 55 A0 Denis Rich MD [address] [facility] [address], [place], [address], [place] [facility] 03/08/2024 11:27:32 09/14/20 24 text/htm l Patient Name: Ashley Mayes Of Service: Thursday ( 09.14.2024 ): 1940 [...] Systemic Symptoms:none Medication Reconciliation: from medication list. [id number]: Echocardiogram estimated ejection fraction 65%. Normal-appearing tricuspid [...] specific medication. Rate control: controlled ventricular response [id number] Criteria: hypertension, Age > 75 and and [...] Reactions ReviewedCoreg Hair Loss Vaccination and Immunization(X) 2020- COVID 19 [facility] Opdygsi1312-54 Left Breast Ofyxwf9435-89 Left Knee Xrfwtqs5915-93 Mitral Valve Mackph0150-52 Tonsillectomy Preventative Testing( ) 04/08/2024 Albumin 4.1 [...] Menopause 55 A0 Denis Rich MD [address] [address], [place], [address], [facility] 09/14/2024 12:08:22 OBGyn Episode No OBEpisode recorded.
--- OUTSIDE RECORDS SUMMARY | 2024-11-08 06:19 | XMS_ITS | Encounter Summary ---
Author Organization [facility] Address [address] [place] [address] Care Team Providers Care Diabetes Specialist Name Role Phone Gary Rich MD Primary Care Provider Reason for Visit * Reason Comments Cancer * Eval and Treat (Routine) - Closed Specialty Diagnoses / Procedures Referred By Contconor t Referred To Contact Oncology Diagnoses Malignant neoplasm of upper-outer quadrant of left female breast (CMS/HCC) Procedures Office Visit Level 3-5 Gary Rich MD [address] [facility] [address] [place] [address] [facility] Oncology And Hematology [place] [address] [place] [address] Referral ID Status Reason Start Date Expiration Date Visits Re quested Visits Authorized [id number] Closed 07/02/2022 12/29/2022 12 12 Encounter Details Date Type Department Care Team (Late st Contact Info) Description 09/30/2022 1:15 PM OIL PROCESS STILLMAN Office Visit [facility] Oncology and Hematology - [place] [address] [place] [address] Wil Pena MD [address] [facility] [address] [place] [address] Malignant neoplasm of upper-outer quadrant of left breast in female, estrogen receptor positive (Primary Dx) Social History Tobacco Use Types Packs/Day Years Used Date Smoking Tobacco: Never Smokeless Tobacco: Never Tobacco Cessation:Counseling Given: Not Answered Alcohol Use Standard Drinks/Week Comments Never 0 (1 standard drink = 0.6 oz pur e alcohol) Sex and Gender Information Value Date Recorded Sex Assigned at Not on file Gender Identity Not on file Sexual Orientation Not on file COVID-19 Exposure Response Date Recorded In the last 10 days, have yo u been in contact with someone who was confirmed or suspected to have Coronavirus/COVID-19? No / Unsure 09/30/2022 1:13 PM OIL PROCESS STILLMAN documented as of this encounter Last Filed Vital Signs Vital Sign Reading Time Taken Comments Blood Pressure 124/61 09/30/2022 1:41 PM OIL PROCESS STILLMAN Pulse 95 09/30/2022 1:41 PM OIL PROCESS STILLMAN Temperature 37 ??C (98.6 ??F) 09/30/2022 1:41 PM OIL PROCESS STILLMAN Respiratory Rate 16 09/30/2022 1:41 PM OIL PROCESS STILLMAN Oxygen Saturation 99% 09/30/2022 1:41 PM OIL PROCESS STILLMAN Inhaled Oxygen Concentration - - Weight 80.5 kg (177 lb 8 oz) 09/30/2022 1:41 PM OIL PROCESS STILLMAN Height - - Body Mass Index 28.65 07/01/2022 1:03 PM CDT documented in this encounter Progress Notes * Wil Pena MD - 09/30/2022 3:03 PM CST HEMATOLOGY / ONCOLOGY PROGRESS NOTE Patient Identification: Name: Ashley Ortiz Age: 82 y.o. 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 Tumor size 15 mm x 10 mm x 6 mm. No lymphovascular invasion. All margins negative for invasive carcinoma. Renal sentinel lymph nodes x2 - for carcinoma. Previous biopsy showed ER and [place] 95% positive Ki-67 less than 5% and HER-2/tony negative. Oncotype DX recurrence score 22. CURRENT TREATMENT Arimidex 1 mg daily started on April 04, 2022 TREATMENT HISTORY Status post left-sided lumpectomy and left sentinel lymph node biopsy done on January 15, 2022. Completed radiation therapy to the left breast on March 26, 2022 SUBJECTIVE Patient came into the office for follow-up visit. Patient has been experiencing some hot flashes and night sweats and hair loss. Denies any new lumps of the lymphadenopathy. No other new complaint. Review of system Constitutional: Patient did not mention fevers,fatigue, malaise, weight loss, complain of hot flashes and night sweats and hair loss HEENT: Patient did not mention sinus congestion, hearing or vision problems Respiratory: Patient did not mention cough, dyspnea, wheeze Cardiovascular: Patient did not mention chest pain, exertional chest pressure/discomfort, nausea, syncope, shortness of breath GI: Patient did not mention constipation, diarrhea, dsyphagia, reflux symptoms, vomiting, melena : Patient did not mention dysuria, frequency, incontinence, urgency Integumentary system: no lymphadenopathy, sweats, flushing Musculoskeletal: Patient not mention: myalgia, arthralgia Neurological: Patient did not mention blurry or disturbed vision, numbness/weakness, dizziness Skin: No lumps, bumps or rashes. 12 point review system was reviewed and as above Objective: Vital signs in last 24 hours: As per nursing note Exam: General appearance: alert, cooperative, no distress, appears stated age Head: normocephalic, without obvious abnormality, atraumatic Eyes: conjunctivae/corneas clear, EOM's intact Ears: normal external ear canals AU Nose: Nares normal. Septum midline. Mucosa normal. No drainage or sinus tenderness Throat: Lips, mucosa, and tongue normal. Teeth and gums normal Neck: supple, symmetrical, trachea midline. Lungs: clear to auscultation bilaterally Heart: regular rate and rhythm, S1, S2 normal, no murmur, click, rub or gallop Abdomen: soft, non-tender. Bowel sounds normal. No masses, No organomegaly Extremities: extremities normal, atraumatic, no cyanosis or edema Skin: Skin color, texture, turgor normal. No rashes or lesions Lymph nodes: No lymphadenopathy Neuro: No obvious focal deficit Bilateral breast examination showed postoperative changes and scarring in the left breast without any masses or lymphadenopathy. 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 Tumor size 15 mm x 10 mm x 6 mm. No lymphovascular invasion. All margins negative for invasive carcinoma. Renal sentinel lymph nodes x2 - for carcinoma. Previous biopsy showed ER and [place] 95% positive Ki-67 less than 5% and HER-2/tony negative. Oncotype DX recurrence score 22. Status post left-sided lumpectomy and left sentinel lymph node biopsy done on January 15, 2022. Completed radiation therapy to the left breast on March 26, 2022 Arimidex started on April 04, 2022. No evidence of relapse of disease on my examination. Patient had left breast diagnostic mammogram on N14 came back unremarkable other than postoperative changes. We will labs including tumor marker stable. We decided to continue Arimidex for now. She has been experiencing some side effects. I will see her back in 4 months with repeat labs. Repeat bilateral screening mammogram will be done in 6 months. Bone health. Bone density will be done next month. Continue vitamin D. TOBACCO COUNSELING She is not a tobacco user. 09/30/2022 Wil Pena MD PROCESS STILLMAN documented in this encounter Plan of Treatment Upcoming Encounters Date Type Department Care Team (Late st Contact Info) Description 11/18/2024 10:15 AM OIL PROCESS STILLMAN Office Visit [facility] Oncology and Hematology - [place] [address] [facility] [address] [place] [address] Wil Pena MD [address] [facility] [address] [place] [address] documented as of this encounter Visit Diagnoses Diagnosis Malignant neoplasm of upper-outer quadrant of left breast in female, estrogen receptor positive- Primary documented in this encounter Care Teams Diabetes Specialist Relationship Specialty Start Date End Date Gary Rich MD [address] [facility] [address] [place] [address] PCP - General Internal Medicine 01/29/22 documented as of this encounter
--- OUTSIDE RECORDS SUMMARY | 2024-11-08 06:19 | XMS_ITS | Encounter Summary ---
Author Organization [facility] Address [address] [place] [address] Care Team Providers Care Flat Sorting Machine Clerk Name Role Phone Gary Rich MD Primary Care Provider [phone] Encounter Details Date Type Department Care Team (Late st Contact Info) Description 06/30/2024 External Device Data STL ABSTRACTION Provider, Abstract [...] st Contact Info) Description 11/18/2024 10:15 AM COMMERCIAL INTELLIGENCE MANAGER Office Visit [facility] Oncology and Hematology - [place] [address] [facility] [address] [place] [address] Wil Pena MD [address] [facility] [address] [place] [address] documented as of this encounter Visit Diagnoses Not on filedocumented in this encounter Care Teams Flat Sorting Machine Clerk Relationship Specialty Start Date End Date Gary Rich MD [address] [facility] [address] [place] [address] PCP - General Internal Medicine 01/29/22 documented as of this encounter
--- OUTSIDE RECORDS SUMMARY | 2024-11-08 06:19 | XMS_ITS | Encounter Summary ---
Author Organization [employer] , [facility] Address [address] [facility] [place] [address] Phone Care Team Providers Care Local Area Network Administrator Name Role Phone Gary Rich MD Primary Care Provider [phone] Encounter Details Date Type Department Care Team (Late st Contact Info) Description 10/22/2021 Orders Only [facility] [address] [facility] [address] [place] [address] Camden Xiong DO [address] [facility] [address] [place] [address] Social History Tobacco Use Types Packs/Day Years Used Date Smoking Tobacco: Never Assessed Comments Unknown Sex and Gender Information Value Date Recorded Sex Assigned at Not on file Legal Sex Female 6:25 PM EST Gender Identity Not on file Sexual Orientation Not on file documented as of this encounter Plan of Treatment Not on file documented as of this encounter Visit Diagnoses Not on filedocumented in this encounter Care Teams Local Area Network Administrator Relationship Specialty Start Date End Date Gary Rich MD PCP - General Internal Medicine 10/16/21 documented as of this encounter
--- OUTSIDE RECORDS SUMMARY | 2024-11-08 06:19 | XMS_ITS | Encounter Summary ---
Author Organization [facility] [employer] Address [address] [place] [address] Care Team Providers Care Machine Finisher Name Role Phone Gary Rcih MD Primary Care Provider [phone] Encounter Details Date Type Department Care Team (Late Contact Info) Description 10/13/2022 Orders Only [facility] Oncology and Hematology [facility] [address] [place] [address] Desiree Ballesteros Osteopenia of multiple sites Social History Tobacco Use Types Packs/Day Years [...] Coronavirus/COVID-19? No / Unsure 09/30/2022 1:13 PM BIT BENDER documented as of this encounter Plan of Treatment Upcoming Encounters Date Type Department Care Team (Late st Contact Info) Description 11/18/2024 10:15 AM BIT BENDER Office Visit [facility] Oncology and Hematology - [place] [address] [place] [address] Wil ePna MD [address] [facility] [address] [place] [address] documented as of this encounter Visit Diagnoses Diagnosis Osteopenia of multiple sites documented in this encounter Care Teams Machine Finisher Relationship Specialty Start Date End Date Gary Rich MD [address] [facility] [address] [place] [address] PCP - General Internal Medicine 01/29/22 documented as of this encounter
--- OUTSIDE RECORDS SUMMARY | 2024-11-08 06:19 | XMS_ITS | Encounter Summary ---
Author Organization [facility] Address [address] [place] [address] Care Team Providers Care District Court Bailiff Name Role Phone Gary Rich MD Primary Care Provider [phone] Encounter Details Date Type Department Care Team (Late st Contact Info) Description 06/29/2024 External Device Data STL ABSTRACTION Provider, Abstract [...] st Contact Info) Description 11/18/2024 10:15 AM DOUGH MOLDER HAND Office Visit [facility] Oncology and Hematology - [place] [address] [facility] [address] [place] [address] Wil Pena MD [address] [facility] [address] [place] [address] documented as of this encounter Visit Diagnoses Not on filedocumented in this encounter Care Teams District Court Bailiff Relationship Specialty Start Date End Date Gary Rich MD [address] [facility] [address] [place] [address] PCP - General Internal Medicine 01/29/22 documented as of this encounter
--- OUTSIDE RECORDS SUMMARY | 2024-11-08 06:19 | XMS_ITS | Encounter Summary ---
Author Organization [facility] [employer] Address [address] [place] [address] Care Team Providers Care Refrigeration Brazer/Solderer Name Role Phone Gary Rich MD Primary Care Provider [phone] Reason for Visit * Reason Comments Follow Up Encounter Details Date Type Department Care Team (Late st Contact Info) Description 02/23/2024 10:15 AM CDT Office Visit [facility] Oncology and Hematology - Олег [address] [facility] [address] [place] [address] Wil Pena MD [address] [facility] [address] [place] [address] Malignant neoplasm of upper-outer quadrant [...] Sign Reading Time Taken Comments Blood Pressure 114/69 02/23/2024 10:10 AM CDT Pulse 85 02/23/2024 10:10 AM CDT Temperature 36.8 ??C (98.2 ??F) 02/23/2024 10:10 AM C DT Respiratory Rate 14 02/23/2024 10:10 AM CDT Oxygen Saturation 96% 02/23/2024 10:10 AM CDT Inhaled Oxygen Concentration - - Weight 78.9 kg (174 lb) 02/23/2024 10:10 AM CDT Height - - Body Mass Index 28.08 07/01/2022 1:03 PM CDT documented in this encounter Progress Notes * Wil Pena MD - 02/23/2024 10:26 AM CDT HEMATOLOGY / ONCOLOGY PROGRESS NOTE Patient Identification: Name: Ashley Ortiz Age: 83 y.o. 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 Tumor size 15 mm x 10 mm x 6 mm. No lymphovascular invasion. All margins negative for invasive carcinoma. Renal sentinel lymph nodes x2 - for carcinoma. Previous biopsy showed ER and IN 95% positive Ki-67 less than 5% and HER-2/tony negative. Oncotype DX recurrence score 22. CURRENT TREATMENT Surveillance TREATMENT HISTORY Status post left-sided lumpectomy and left sentinel lymph node biopsy done on January 15, 2022. Completed radiation therapy to the left breast on March 26, 2022 Arimidex was started on April 04, 2022 and discontinued 3 months later due to side effects. SUBJECTIVE Patient came to the office for follow-up visit. She denies any new lumps bumps or lymphadenopathy. No chest pain or shortness of breath. Weight and appetite stable. No other new complaints. Review of system Constitutional: Patient did not mention fevers,fatigue, malaise, denies any tiredness and fatigue, weight and appetite stable. HEENT: Patient did not mention sinus congestion, [...] lumps, bumps or rashes. 12 point review of system was reviewed Objective: Vital signs in last 24 hours: [...] in the left breast without any masses and lymphadenopathy. Exam as above PATH LABS Labs from June 24 showed hemoglobin 11.5 creatinine 1.04 CA 15-3 11 Labs from 22 September showed CA 15-3 10 creatinine 0.9 WBC 4.8 hemoglobin 12.3 platelet 208,000 Labs from June 04 showed CA 15-3 9 creatinine 0.9 WBC 5.4 hemoglobin 12.2 platelet 212,000 Labs from October 10 showed CA 15-3 10 hemoglobin 12.7 Labs from February 15 showed WBC 4.4 hemoglobin 12.1 platelet 198,000 creatinine 1.0 CA 15-3 10 Assessment: Plan: Patient Active Problem List Diagnosis [...] for carcinoma. Previous biopsy showed ER and IN 95% positive Ki-67 less than 5% and HER-2/tony negative. Oncotype DX recurrence score 22. Status post left-sided lumpectomy and left sentinel lymph node biopsy done on January 15, 2022. Completed radiation therapy to the left breast on March 26, 2022 Arimidex started on April 04, 2022. Discontinued 3 months later due to side effects. Labs including tumor marker stable. There is no evidence of relapse of disease on my examination. Will order bilateral screening mammogram in September 2024. I will continue to see her on every 4-month basis for the first 3 years. Follow-up in 4 months. Bone health. Vitamin D was discontinued by the primary care physician due to elevated levels. Denies any bone pain. TOBACCO COUNSELING She is not a tobacco/nicotine user. 02/23/2024 Wil Pena MD documented in this encounter Plan of Treatment Upcoming Encounters Date Type Department Care Team (Late st Contact Info) Description 11/18/2024 10:15 AM PULP PILER Office Visit [facility] Oncology and Hematology - Олег [address] [facility] [address] [place] [address] Wil Pena MD [address] [facility] [address] [place] [address] Scheduled Orders Name Type Priority Associated Diagnoses Orde r Schedule CBC WITH DIFFERENTIAL Lab Stat Malignant neoplasm of upper-outer quadrant of left breast in female, estrogen receptor positive Expected: 06/14/2024, Expires: 02/22/2025 COMPREHENSIVE METABOLIC PANEL Lab Stat Malignant neoplasm of upper-outer quadrant of left breast in female, estrogen receptor positive Expected: 06/14/2024, Expires: 02/22/2025 documented as of this encounter Procedures Procedure Name Priority Date/Time Associated Diagnosis Comments CANCER ANTIGEN 15-3 Routine 06/16/2024 1 0:13 AM CDT Malignant neoplasm of upper-outer quadrant of left breast in female, estrogen receptor positive CBC WITH DIFFERENTIAL Routine 06/16/2024 10:13 AM CDT COMPREHENSIVE METABOLIC PANEL Routine 06/16/2024 10:13 AM CDT documented in this encounter Results * (ABNORMAL) COMPREHENSIVE METABOLIC PANEL (06/16/2024 10:13 AM CDT) GLUCOSE 136(H) 65 - 99 mg/dL [facility] Comment: ? Fasting reference interval For someone without known diabetes, a glucose value >125 mg/dL indicates that they may have diabetes and this should be confirmed with a follow-up test. BUN 24 7 - 25 mg/dL [facility] CREATININE 0.95 0.60 - 0.95 mg/dL [facility] GFR 59(L) > OR = 60 mL/min/1. 73m2 [facility] BUN/CREAT RATIO SEE NOTE: 6 - 22 (calc) [facility] Comment: ?? Not Reported: BUN and Creatinine are within ?? reference range. ? SODIUM 137 135 - 146 mmol/L [facility] POTASSIUM 3.8 3.5 - 5.3 mmol/L [facility] CHLORIDE 99 98 - 110 mmol/L [facility] CO2 30 20 - 32 mmol/L [facility] CALCIUM 9.8 8.6 - 10.4 mg/dL [facility] TOTAL PROTEIN 7.0 6.1 - 8.1 g/dL [facility] ALBUMIN 4.2 3.6 - 5.1 g/dL [facility] GLOBULIN 2.8 1.9 - 3.7 g/dL (calc) [facility] ALBUMIN/GLOBULIN RATIO 1.5 1.0 - 2.5 (calc) [facility] BILIRUBIN TOTAL 0.7 0.2 - 1.2 mg/dL [facility] ALKALINE PHOSPHATASE 167(H) 37 - 153 U/L [facility] AST 15 10 - 35 U/L [facility] ALT 14 6 - 29 U/L [facility] Comment: FASTING:YES FASTING: YES Test Performed at: [facility] [id number] [place], [place] ??[phone] Natalia Mcfarland MD 06/16/2024 10:1 3 AM CDT 06/16/2024 10:15 AM CDT Wil Pena MD CHEMISTRY ORDERABLES [facility] [phone] [facility] [address] [place] [address] * (ABNORMAL) CBC WITH DIFFERENTIAL (06/16/2024 10:13 AM CDT) WBC 4.9 3.8 - 10.8 Thousand/u L [facility] RBC 4.73 3.80 - 5.10 Million/uL [facility] HEMOGLOBIN 12.7 11.7 - 15.5 g/dL [facility] HEMATOCRIT 39.6 35.0 - 45.0 % [facility] MCV 83.7 80.0 - 100.0 fL [facility] MCH 26.8(L) 27.0 - 33.0 pg [facility] MCHC 32.1 32.0 - 36.0 g/dL [facility] RDW 13.7 11.0 - 15.0 % [facility] PLATELETS 214 140 - 400 Thousand/u L [facility] MPV 10.6 7.5 - 12.5 fL [facility] NEUTROPHIL ABSOLUTE 2,960 1,500 - 7,800 cells/uL [facility] LYMPHOCYTE ABSOLUTE 1,475 850 - 3,900 cells/uL [facility] MONOCYTE ABSOLUTE 348 200 - 950 cells/uL [facility] EOSINOPHIL ABSOLUTE 98 15 - 500 cells/uL [facility] BASOPHILS ABSOLUTE 20 0 - 200 cells/uL [facility] NEUTROPHIL 60.4 % [facility] LYMPHOCYTES 30.1 % [facility] MONOCYTE 7.1 % [facility] EOSINOPHILS 2.0 % [facility] BASOPHILS 0.4 % [facility] Comment: FASTING:YES FASTING: YES Test Performed at: [facility] [address] [place], [place] ??[phone] Natalia Mcfarland MD 06/16/2024 10:1 3 AM CDT 06/16/2024 10:15 AM CDT Wil Pena MD HEMATOLOGY ORDERABLE S Performing Organization Address [facility] Co de Phone Number [facility] [phone] [address] * CANCER ANTIGEN 15-3 (06/16/2024 10:13 AM CDT) CA 15-3 9 <32 U/mL [facility] Comment: This test was performed using the Siemens (exsulin) chemiluminescent method. Values obtained from different assay methods cannot be used interchangeably. CA 15-3 levels, regardless of value, should not be interpreted as absolute evidence of the presence or absence of disease. FASTING:YES FASTING: YES Test Performed at: [facility] ??[phone] Natalia Mcfarland MD Blood 06/16/2024 10:1 3 AM CDT 06/16/2024 10:15 AM CDT Wil Pena MD CHEMISTRY ORDERABLES Performing Organization Address [facility] Co de Phone Number [facility] [phone] [address] documented in this encounter Visit Diagnoses Diagnosis Malignant neoplasm of upper-outer quadrant of left breast in female, estrogen receptor positive- Primary documented in this encounter Care Teams Refrigeration Brazer/Solderer Relationship Specialty Start Date End Date Gary Rich MD [address] [place] [address] [address] [place] [id number] PCP - General Internal Medicine 01/29/22 documented as of this encounter
--- OUTSIDE RECORDS SUMMARY | 2024-11-08 06:19 | XMS_ITS | Encounter Summary ---
Author Organization [facility] [employer] [facility] Address [address] [facility] [place] [address] Phone Care Team Providers Care Franchise Sales Manager Name Role Phone Gary Rich MD Primary Care Provider [phone] Reason for Visit * Consultation (Routine) - Closed Specialty Diagnoses / Procedures Referred By Contac t Referred To Contact Nephrology Diagnoses Abnormal finding of blood chemistry, not otherwise specified Gary Rich MD Phone: tel: fax: Camden Xiong DO Phone: tel: fax: Referral ID Status Reason Start Date Expiration Date V isits Requested Visits Authorized [id number] Closed Consult and Treat 10/16/2021 04/14/2022 6 6 Encounter Details Date Type Department Care Team (Late st Contact Info) Description 12/03/2021 2:45 PM LIBRARY PAGE Office Visit [facility], [facility] [address] [facility] [address] [place] [address] Camden Xiong DO [address] [place] [address] Stage 3 chronic kidney disease, not otherwise specified (HCC) (Primary Dx); Abnormal finding of blood chemistry, not otherwise specified; Atrial fibrillation, not otherwise specified (HCC); Hypertension; Type 2 diabetes mellitus with diabetic chronic kidney disease (HCC); Pure hypercholesterolemia , not otherwise specified Social History Tobacco Use Types Packs/Day Years Used Date Smoking Tobacco: Never Assessed Comments Unknown Sex and Gender Information Value Date Recorded Sex Assigned at Not on file Legal Sex Female 6:25 PM EST Gender Identity Not on file Sexual Orientation Not on file documented as of this encounter Last Filed Vital Signs Vital Sign Reading Time Taken Comments Blood Pressure 120/62 12/03/2021 2:43 PM LIBRARY PAGE Pulse 62 12/03/2021 2:43 PM LIBRARY PAGE Temperature 36.7 ??C (98 ??F) 12/03/2021 2:43 PM LIBRARY PAGE Respiratory Rate 18 12/03/2021 2:43 PM LIBRARY PAGE Oxygen Saturation 99% 12/03/2021 2:43 PM LIBRARY PAGE Inhaled Oxygen Concentration - - Weight 83.5 kg (184 lb) 12/03/2021 2:43 PM LIBRARY PAGE Height 167.6 cm (5' 6 ) 12/03/2021 2:43 PM LIBRARY PAGE Body Mass Index 29.7 12/03/2021 2:43 PM LIBRARY PAGE documented in this encounter Progress Notes * Camden Xiong, - 12/03/2021 2:45 PM CST Images from the original note were not included. CC: MD Dr. Brandt Quintero (Cardiology [facility]) ASSESSMENT: Stage 3a chronic kidney disease without proteinruia likely related to age. MVR s/p repair 2010 Afib s/p MAZE HTN HLD DM2 PLAN: - no medication changes - discussed low salt, low processed food diet - I do not feel compelled to start RAAS blockade or SGLT2 inhibitor given that her kidney disease is most likely related to age and not diabetes. - Return 3 months with labs. SUBJECTIVE: Mrs. Ashley Ortiz is a 81 y.o. WF with a PMHx of HTN, DM2, HLD, severe MR s/p annuloplasty in 2010, Afib s/p MAZE, and stage 3 CKD for which we follow. She has a Scr of 1.12 mg/dL estimating a GFR of about 45 mL/min with no proteirnuia that is likely related to age. No OTC medications. No concerning features in her hisptry. No dyspnea or chest pain.No dizziness. A 12 point review of systems is otherwise negative. Past Medical History: HTN DM2 dx 2019 HLD MVR s/p annuloplasty with #33 [place] MV annuloplasty ring 2010 Afib s/p left sided MAZE procedure CCK 2019 CKD 3 NKDA Reaction: Statin with myalgias. Medications: ASA 325 mg PO Qday Amilioride HCTZ 5 - 50 mg PO Qday Metformin 500 mg PO BID Atorvastatin 20 mg PO Qhs Family History: family history is not on file. Social History: never smoker EXAM: BP 120/62 Pulse 62 Temp 98 ??F Resp 18 Ht 5' 6 (1.676 m) Wt 184 lb (83.5 kg) SpO2 99% BMI 29.70 kg/m?? NAD, alert and appropriate No JVD, moist oropharynx HRRR without murmur Lungs B CTA without expiratory wheezes Abdomen benign, nontender LE without edema Skin without petechae, purpura or livido Gait normal No focal neurologic deficits RESULTS: No lab exists for component: PTHINTACT No lab exists for component: IRON SATURATION Labs 08/23/21: Cr 1.12, BUN 23, K 4.0, Na 139, Bicarb 23, Ca 10.1, Labs 08/23/21: Hgb 12.2, TSH 2.0, FT4 1.3, A1c 7.0% . . Echo 07/16/21: EF 63%, normal LV function. Normal MV. Thank you for allowing me to participate in the care of your patient. Sincerely, Camden Xiong MD documented in this encounter Plan of Treatment Scheduled Orders Name Type Priority Associated Diagnoses Orde r Schedule Renal function panel Lab Routine Abnormal finding of blood chemistry, not otherwise specified Stage 3 chronic kidney disease, not otherwise specified (HCC) Atrial fibrillation, not otherwise specified (HCC) Hypertension Type 2 diabetes mellitus with diabetic chronic kidney disease (HCC) Pure hypercholesterolemia, not otherwise specified Expected: 12/03/2021, Expires: 01/03/2023 CBC Lab Routine Abnormal finding of blood chemistry, not otherwise specified Stage 3 chronic kidney disease, not otherwise specified (HCC) Atrial fibrillation, not otherwise specified (HCC) Hypertension Type 2 diabetes mellitus with diabetic chronic kidney disease (HCC) Pure hypercholesterolemia, not otherwise specified Expected: 12/03/2021, Expires: 01/03/2023 Magnesium Lab Routine Abnormal finding of blood chemistry, not otherwise specified Stage 3 chronic kidney disease, not otherwise specified (HCC) Atrial fibrillation, not otherwise specified (HCC) Hypertension Type 2 diabetes mellitus with diabetic chronic kidney disease (HCC) Pure hypercholesterolemia, not otherwise specified Expected: 12/03/2021, Expires: 01/03/2023 Vitamin D 25 hydroxy Lab Routine Abnormal finding of blood chemistry, not otherwise specified Stage 3 chronic kidney disease, not otherwise specified (HCC) Atrial fibrillation, not otherwise specified (HCC) Hypertension Type 2 diabetes mellitus with diabetic chronic kidney disease (HCC) Pure hypercholesterolemia, not otherwise specified Expected: 12/03/2021, Expires: 01/03/2023 Urine Protein / creatinine ratio Lab Routine Abnormal finding of blood chemistry, not otherwise specified Stage 3 chronic kidney disease, not otherwise specified (HCC) Atrial fibrillation, not otherwise specified (HCC) Hypertension Type 2 diabetes mellitus with diabetic chronic kidney disease (HCC) Pure hypercholesterolemia, not otherwise specified Expected: 12/03/2021, Expires: 01/03/2023 Urine Albumin / Creatinine Ratio Lab Routine Abnormal finding of blood chemistry, not otherwise specified Stage 3 chronic kidney disease, not otherwise specified (HCC) Atrial fibrillation, not otherwise specified (HCC) Hypertension Type 2 diabetes mellitus with diabetic chronic kidney disease (HCC) Pure hypercholesterolemia, not otherwise specified Expected: 12/03/2021, Expires: 01/03/2023 Urinalysis with microscopic Lab Routine Abnormal finding of blood chemistry, not otherwise specified Stage 3 chronic kidney disease, not otherwise specified (HCC) Atrial fibrillation, not otherwise specified (HCC) Hypertension Type 2 diabetes mellitus with diabetic chronic kidney disease (HCC) Pure hypercholesterolemia, not otherwise specified Expected: 12/03/2021, Expires: 01/03/2023 Urine Immunofixation Electrophoresis Lab Routine Abnormal finding of blood chemistry, not otherwise specified Stage 3 chronic kidney disease, not otherwise specified (HCC) Atrial fibrillation, not otherwise specified (HCC) Hypertension Type 2 diabetes mellitus with diabetic chronic kidney disease (HCC) Pure hypercholesterolemia, not otherwise specified Expected: 12/03/2021, Expires: 01/03/2023 Protein electrophoresis, serum Lab Routine Abnormal finding of blood chemistry, not otherwise specified Stage 3 chronic kidney disease, not otherwise specified (HCC) Atrial fibrillation, not otherwise specified (HCC) Hypertension Type 2 diabetes mellitus with diabetic chronic kidney disease (HCC) Pure hypercholesterolemia, not otherwise specified Expected: 12/03/2021, Expires: 01/03/2023 Hutchinson/Lambda free LT chains w/ratio Lab Routine Abnormal finding of blood chemistry, not otherwise specified Stage 3 chronic kidney disease, not otherwise specified (HCC) Atrial fibrillation, not otherwise specified (HCC) Hypertension Type 2 diabetes mellitus with diabetic chronic kidney disease (HCC) Pure hypercholesterolemia, not otherwise specified Expected: 12/03/2021, Expires: 01/03/2023 C4 complement Lab Routine Abnormal finding of blood chemistry, not otherwise specified Stage 3 chronic kidney disease, not otherwise specified (HCC) Atrial fibrillation, not otherwise specified (HCC) Hypertension Type 2 diabetes mellitus with diabetic chronic kidney disease (HCC) Pure hypercholesterolemia, not otherwise specified Expected: 12/03/2021, Expires: 01/03/2023 C3 complement Lab Routine Abnormal finding of blood chemistry, not otherwise specified Stage 3 chronic kidney disease, not otherwise specified (HCC) Atrial fibrillation, not otherwise specified (HCC) Hypertension Type 2 diabetes mellitus with diabetic chronic kidney disease (HCC) Pure hypercholesterolemia, not otherwise specified Expected: 12/03/2021, Expires: 01/03/2023 Hepatitis C antibody Lab Routine Abnormal finding of blood chemistry, not otherwise specified Stage 3 chronic kidney disease, not otherwise specified (HCC) Atrial fibrillation, not otherwise specified (HCC) Hypertension Type 2 diabetes mellitus with diabetic chronic kidney disease (HCC) Pure hypercholesterolemia, not otherwise specified Expected: 12/03/2021, Expires: 01/03/2023 Hepatitis B surface antigen Lab Routine Abnormal finding of blood chemistry, not otherwise specified Stage 3 chronic kidney disease, not otherwise specified (HCC) Atrial fibrillation, not otherwise specified (HCC) Hypertension Type 2 diabetes mellitus with diabetic chronic kidney disease (HCC) Pure hypercholesterolemia, not otherwise specified Expected: 12/03/2021, Expires: 01/03/2023 Hepatitis B surface antibody Lab Routine Abnormal finding of blood chemistry, not otherwise specified Stage 3 chronic kidney disease, not otherwise specified (HCC) Atrial fibrillation, not otherwise specified (HCC) Hypertension Type 2 diabetes mellitus with diabetic chronic kidney disease (HCC) Pure hypercholesterolemia, not otherwise specified Expected: 12/03/2021, Expires: 01/03/2023 Vitamin B12 Lab Routine Abnormal finding of blood chemistry, not otherwise specified Stage 3 chronic kidney disease, not otherwise specified (HCC) Atrial fibrillation, not otherwise specified (HCC) Hypertension Type 2 diabetes mellitus with diabetic chronic kidney disease (HCC) Pure hypercholesterolemia, not otherwise specified Expected: 12/03/2021, Expires: 01/03/2023 documented as of this encounter Visit Diagnoses Diagnosis Stage 3 chronic kidney disease, not otherwise specified (HCC)- Primary Abnormal finding of blood chemistry, not otherwise specified Atrial fibrillation, not otherwise specified (HCC) Hypertension Type 2 diabetes mellitus with diabetic chronic kidney disease (HCC) Pure hypercholesterolemia, not otherwise specified documented in this encounter Care Teams Franchise Sales Manager Relationship Specialty Start Date End Date Gary Rich MD PCP - General Internal Medicine 10/16/21 documented as of this encounter
--- OUTSIDE RECORDS SUMMARY | 2024-11-08 06:19 | XMS_ITS | Encounter Summary ---
Author Organization [facility] [employer] [facility] Address [address] [place] [address] Phone Care Team Providers Care Production Technician Name Role Phone Gary Rich MD Primary Care Provider [phone] Reason for Referral * Consultation (Routine) - Closed Specialty Diagnoses / Procedures Referred By Contac t Referred To Contact Nephrology Diagnoses Abnormal finding of blood chemistry, not otherwise specified Gary Rich MD Phone: tel: fax: Camden Xiong DO Phone: tel: fax: Referral ID Status Reason Start Date Expiration Date V isits Requested Visits Authorized [id number] Closed Consult and Treat 10/16/2021 04/14/2022 6 6 APPLIANCE INSTALLER Encounter Details Date Type Department Care Team (Late st Contact Info) Description 10/22/2021 Transcribe Orders [place] [facility], [address] [address] Camden Xiong DO [address] [place] [address] Abnormal finding of blood chemistry, not otherwise specified (Primary Dx) Social History Tobacco Use Types Packs/Day Years Used Date Smoking Tobacco: Never Assessed Comments Unknown Sex and Gender Information Value Date Recorded Sex Assigned at Not on file Legal Sex Female 6:25 PM EST Gender Identity Not on file Sexual Orientation Not on file documented as of this encounter Plan of Treatment Scheduled Referrals Name Type Priority Associated Diagnoses Order Schedule Ambulatory referral to Nephrology Outpatient Referral Routine Abnormal finding of blood chemistry, not otherwise specified Expected: 10/22/2021, Expires: 04/14/2022 documented as of this encounter Visit Diagnoses Diagnosis Abnormal finding of blood chemistry, not otherwise specified- Primary documented in this encounter Care Teams Production Technician Relationship Specialty Start Date End Date Gary Rich MD PCP - General Internal Medicine 10/16/21 documented as of this encounter
--- OUTSIDE RECORDS SUMMARY | 2024-11-08 06:19 | XMS_ITS | Encounter Summary ---
Author Organization [facility] , [facility] Address [address] [facility] [place] [address] Phone Care Team Providers Care Entry Level Truck Driver Name Role Phone Gary Rich MD Primary Care Provider [phone] Encounter Details Date Type Department Care Team (Late st Contact Info) Description 10/22/2021 Orders Only [employer] [facility] [address] [facility] [address] [place] [address] Camden Xiong DO [address] [facility] [address] [place] [address] Social History Tobacco Use Types [...] on filedocumented in this encounter Care Teams Entry Level Truck Driver Relationship Specialty Start Date End Date Gary Rich MD PCP - General Internal Medicine 10/16/21 documented as of this encounter
--- OUTSIDE RECORDS SUMMARY | 2024-11-08 06:19 | XMS_ITS | Encounter Summary ---
Author Organization [facility] Address [address] [place] [address] Care Team Providers Care Sawyer Helper Name Role Phone Gary Rich MD Primary Care Provider [phone] Encounter Details Date Type Department Care Team (Late st Contact Info) Description 12/11/2023 External Device Data STL ABSTRACTION Provider, Abstract [...] Contact Info) Description 11/18/2024 10:15 AM SENIOR SYSTEMS PROGRAMMER Office Visit [facility] Oncology and Hematology - [place] [address] [facility] [address] [place] [address] Wil Pena MD [address] [facility] [address] [place] [address] documented as of this encounter Visit Diagnoses Not on filedocumented in this encounter Care Teams Sawyer Helper Relationship Specialty Start Date End Date Gary Rich MD [address] [facility] [address] [place] [address] PCP - General Internal Medicine 01/29/22 documented as of this encounter
--- OUTSIDE RECORDS SUMMARY | 2024-11-08 06:19 | XMS_ITS | Encounter Summary ---
Author Organization [facility] RAMAN Sol [facility] Address [address] [place] [address] Care Team Providers Care Residential Advisor Name Role Phone Gary Rich MD Primary Care Provider [phone] Reason for Referral * Radiology Services (Routine) - Closed Specialty Diagnoses / Procedures Referred By Sol granados Referred To Contact Diagnoses Osteopenia of multiple sites Procedures XR DEXA BONE DENSITY AXIAL 1 OR MORE SITES Wil Pena MD [address] [address] [facility] [address] [address] Referral ID Status Reason Start Date Expiration Date V isits Requested Visits Authorized [id number] Closed [facility] CTS 07/10/2022 11/08/2022 1 1 * Radiology Services (Routine) - Closed Specialty Diagnoses / Procedures Referred By Sol granados Referred To Contact Diagnoses Malignant neoplasm of upper-outer quadrant of left breast in female, estrogen receptor positive Procedures MAMMO DIAG UNI LEFT 3D PEÑA W OR WO CAD CHG DIAGNOSTIC MAMMOGRAPHY COMPUTER-AIDED DETCJ UNI CHG DIGITAL BREAST TOMOSYNTHESIS UNILATERAL Wil Pena MD [address] [facility] [address] [place] [address] Referral ID Status Reason Start Date Expiration Date V isits Requested Visits Authorized [id number] Closed [facility] CTS 07/02/2022 09/30/2022 1 1 Reason for Visit * Reason Comments Follow Up Encounter Details Date Type Department Care Team (Late st Contact Info) Description 07/01/2022 1:00 PM CDT Office Visit [facility] Oncology and Hematology - [place] [address] [facility] [address] [place] [address] Wil Pena MD [address] [facility] [address] [place] [address] Malignant neoplasm of upper-outer quadrant of left breast in female, estrogen receptor positive (Primary Dx); Osteopenia of multiple sites Social History Tobacco [...] suspected to have Coronavirus/COVID-19? No / Unsure 07/01/2022 12:52 PM CDT documented as of this encounter Last Filed Vital Signs Vital Sign Reading Time Taken Comments Blood Pressure 137/80 07/01/2022 1:03 PM CDT Pulse 78 07/01/2022 1:03 PM CDT Temperature 36.7 ??C (98 ??F) 07/01/2022 1:03 PM CDT Respiratory Rate - - Oxygen Saturation 95% 07/01/2022 1:03 PM CDT Inhaled Oxygen Concentration - - Weight 80.5 kg (177 lb 8 oz) 07/01/2022 1:03 PM CDT Height 167.6 cm (5' 6 ) 07/01/2022 1:03 PM CDT Body Mass Index 28.65 07/01/2022 1:03 PM CDT documented in this encounter Progress Notes * Wil Pena MD - 07/01/2022 1:41 PM CDT HEMATOLOGY / ONCOLOGY PROGRESS NOTE Patient [...] for carcinoma. Previous biopsy showed ER and [place] 95% positive Ki-67 less than 5% and HER-2/tony negative. Oncotype DX recurrence score 22. CURRENT TREATMENT Arimidex 1 mg daily started on April 04, 2022 TREATMENT HISTORY Status post left-sided lumpectomy and left sentinel lymph node biopsy done on January 15, 2022. Completed radiation therapy to the left breast on March 26, 2022 SUBJECTIVE Patient came into the office for follow-up visit. She has been tolerating Arimidex well other than occasional hot flashes and night sweats and some hair loss. No other new complaint. Review of system Constitutional: Patient did not mention fevers,fatigue, malaise, weight loss, complain of night sweats HEENT: Patient did not mention sinus congestion, [...] deficit Bilateral breast examination showed postoperative changes in the left breast with some sensitivity.No masses or lymphadenopathy. Examination as above PATH LABS Labs from June 24 showed hemoglobin 11.5 creatinine 1.04 CA 15-3 11 @IMAGEIMP@ Assessment: Plan: Patient Active Problem List Diagnosis [...] for carcinoma. Previous biopsy showed ER and [place] 95% positive Ki-67 less than 5% and HER-2/tony negative. Oncotype DX recurrence score 22. Status post left-sided lumpectomy and left sentinel lymph node biopsy done on January 15, 2022. Completed radiation therapy to the left breast on March 26, 2022 Arimidex started on April 04, 2022. Is no evidence of relapse of disease on my examination. We will order left breast diagnostic mammogram in 3 months. She will continue anastrozole which she has been tolerating well. Follow-up in 3 months. Bone health. We will perform bone density in 3 months. Continue vitamin D. TOBACCO COUNSELING She is not a tobacco user. 07/01/2022 Wil Pena MD documented in this encounter Plan of Treatment Upcoming Encounters Date Type Department Care Team (Late st Contact Info) Description 11/18/2024 10:15 AM NETWORK ENGINEER ADMINISTRATOR Office Visit [facility] Oncology and Hematology - [place] [address] [facility] [address] [place] [address] Wil Pena MD [address] [facility] [address] [place] [address] Scheduled Orders Name Type Priority Associated Diagnoses Orde r Schedule MAMMO DIAG UNI LEFT 3D PEÑA W OR WO CAD Imaging Routine Malignant neoplasm of upper-outer quadrant of left breast in female, estrogen receptor positive Expected: 10/01/2022, Expires: 01/01/2024 XR DEXA BONE DENSITY AXIAL 1 OR MORE SITES Imaging Routine Osteopenia of multiple sites Expected: 10/01/2022, Expires: 07/01/2023 documented as of this encounter Results * CANCER ANTIGEN 15-3 (01/19/2023 8:57 AM CDT) CA 15-3 11 <32 U/mL [facility] Comment: This test was performed using the Siemens (Nuiku) chemiluminescent method. Values obtained from different assay methods cannot be used interchangeably. CA 15-3 levels, regardless of value, should not be interpreted as absolute evidence of the presence or absence of disease. FASTING:YES FASTING: YES Test Performed at: [facility] [address] [place], [place] ??[phone] Natalia Mcfarland MD Blood 01/19/2023 8:57 AM CDT 01/19/2023 8:58 AM CDT Wil Pena MD CHEMISTRY ORDERABLES [facility] [phone] [facility] [address] [place] [phone] documented in this encounter Visit Diagnoses Diagnosis Malignant neoplasm of upper-outer quadrant of left breast in female, estrogen receptor positive- Primary Osteopenia of multiple sites documented in this encounter Care Teams Residential Advisor Relationship Specialty Start Date End Date Gary Rich MD [address] [facility] [address] [place] [address] PCP - General Internal Medicine 01/29/22 documented as of this encounter
--- OUTSIDE RECORDS SUMMARY | 2024-11-08 06:19 | XMS_ITS | Encounter Summary ---
Author Organization [facility] RAMAN Sol [employer] Address [address] [place] [address] Care Team Providers Care Cryptographic Vulnerability Analyst Name Role Phone Gary Rich MD Primary Care Provider [phone] Encounter Details Date Type Department Care Team (Late Contact Info) Description 01/31/2022 Abstract [facility] Oncology and Hematology - [place] [address] [place] [address] Taryn Zaragoza Social History Tobacco Use Types Packs/Day Years Used Date Smoking Tobacco: Never Smokeless Tobacco: Never Alcohol Use Standard Drinks/Week Comments Never 0 (1 standard drink = 0.6 oz pur e alcohol) Sex and Gender Information Value Date Recorded Sex Assigned at Not on file Gender Identity Not on file Sexual Orientation Not on file COVID-19 Exposure Response Date Recorded In the last month, have you been in contact with someone who was confirmed or suspected to have Coronavirus / COVID-19? No / Unsure 01/29/2022 2:33 PM CDT documented as of this encounter Plan of Treatment Upcoming Encounters Date Type Department Care Team (Late Contact Info) Description 11/18/2024 10:15 AM AUTHORIZATION SPECIALIST Office Visit [facility] Oncology and Hematology - [place] [address] [place] [address] Wil Pena MD [address] [facility] [address] [place] [address] documented as of this encounter Visit Diagnoses Not on filedocumented in this encounter Care Teams Cryptographic Vulnerability Analyst Relationship Specialty Start Date End Date Gary Rich MD [address] [facility] [address] [place] [address] PCP - General Internal Medicine 01/29/22 documented as of this encounter
--- OUTSIDE RECORDS SUMMARY | 2024-11-08 06:19 | XMS_ITS | Encounter Summary ---
Author Organization [employer] [facility] Address [address] [facility] [place] [address] Phone Care Team Providers Care Hand Welt Butter Name Role Phone Gary Rich MD Primary Care Provider [phone] Encounter Details Date Type Department Care Team (Late st Contact Info) Description 10/22/2021 Documentation Only [place] [facility] [address] [place] [address] 1 [place] [address] Cam[place] Xiong DO [address] [facility] 1 [place] [address] Social History Tobacco Use Types [...] on filedocumented in this encounter Care Teams Hand Welt Butter Relationship Specialty Start Date End Date Gary Rich MD PCP - General Internal Medicine 10/16/21 documented as of this encounter
--- OUTSIDE RECORDS SUMMARY | 2024-11-08 06:19 | XMS_ITS | Encounter Summary ---
Author Organization [facility] RAMAN Sol [employer] Address [address] [place] [address] Care Team Providers Care Ham Clerk Name Role Phone Gary Rich MD Primary Care Provider [phone] Encounter Details Date Type Department Care Team (Late Contact Info) Description 02/21/2022 Abstract [facility] Oncology and Hematology - [place] [address] [place] [address] Taryn Zaragoza Social History Tobacco [...] (Late Contact Info) Description 11/18/2024 10:15 AM METER/RELAY TECHNICIAN Office Visit [facility] Oncology and Hematology - [place] [address] [place] [address] Wil Pena MD [address] [facility] [address] [place] [address] documented as of this encounter Visit Diagnoses Not on filedocumented in this encounter Care Teams Ham Clerk Relationship Specialty Start Date End Date Gary Rich MD [address] [facility] [address] [place] [address] PCP - General Internal Medicine 01/29/22 documented as of this encounter
--- OUTSIDE RECORDS SUMMARY | 2024-11-08 06:19 | XMS_ITS | Encounter Summary ---
Author Organization [facility] Address [address] [facility] Attn: Epic Prelude ADT [place] [address] Care Team Providers Care Plug Making Operator Name Role Phone Gary Rich MD Primary Care Provider [phone] Encounter Details Date Type Department Care Team (Latest Contact Info) Description 09/30/2022 Travel Social History Tobacco Use Types Packs/Day Years [...] Coronavirus/COVID-19? No / Unsure 09/30/2022 1:13 PM ELECTRICAL ELECTRONICS ENGINEERS documented as of this encounter Plan of Treatment Upcoming Encounters Date Type Department Care Team (Late st Contact Info) Description 11/18/2024 10:15 AM ELECTRICAL ELECTRONICS ENGINEERS Office Visit [facility] Oncology and Hematology - [place] [address] [facility] [address] [place] [address] Wil Pena MD [address] [facility] [address] [place] [address] documented as of this encounter Visit Diagnoses Not on filedocumented in this encounter Care Teams Plug Making Operator Relationship Specialty Start Date End Date Gary Rich MD [address] [facility] [address] [place] [address] PCP - General Internal Medicine 01/29/22 documented as of this encounter
--- OUTSIDE RECORDS SUMMARY | 2024-11-08 06:19 | XMS_ITS | Encounter Summary ---
Author Organization [facility] RAMAN Sol [employer] Address [address] [place] [address] Care Team Providers Care Ed Tech Name Role Phone Gary Rich MD Primary Care Provider [phone] Reason for Visit * Reason Comments Follow Up F/U after radiation onc complete Encounter Details Date Type Department Care Team (Late st Contact Info) Description 04/04/2022 10:30 AM CDT Office Visit [facility] Oncology and Hematology - [place] [address] [facility] [address] [place] [address] Wil Pena MD [address] [facility] [address] [place] [address] Malignant neoplasm of upper-outer quadrant [...] suspected to have Coronavirus/COVID-19? No / Unsure 04/04/2022 10:26 AM CDT documented as of this encounter Last Filed Vital Signs Vital Sign Reading Time Taken Comments Blood Pressure 113/68 04/04/2022 10:41 AM CDT Pulse 68 04/04/2022 10:41 AM CDT Temperature 36.6 ??C (97.8 ??F) 04/04/2022 10:41 AM C DT Respiratory Rate - - Oxygen Saturation 98% 04/04/2022 10:41 AM CDT Inhaled Oxygen Concentration - - Weight 82.6 kg (182 lb 1.6 oz) 04/04/2022 10:41 AM CDT Height 167.6 cm (5' 6 ) 04/04/2022 10:41 AM CDT Body Mass Index 29.39 04/04/2022 10:41 AM CDT documented in this encounter Progress Notes * Wil Pena MD - 04/04/2022 11:25 AM CDT HEMATOLOGY / ONCOLOGY PROGRESS NOTE Patient Identification: Name: Ashley Ortiz Age: 81 y.o. 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 Tumor size 15 mm x 10 mm x 6 mm. No lymphovascular invasion. All margins negative for invasive carcinoma. Renal sentinel lymph nodes x2 - for carcinoma. Previous biopsy showed ER and [place] 95% positive Ki-67 less than 5% and HER-2/tony negative. Oncotype DX recurrence score 22. CURRENT TREATMENT Plan to start Arimidex 1 mg daily on April 04, 2022 TREATMENT HISTORY Status post left-sided lumpectomy and left sentinel lymph node biopsy done on January 15, 2022. Completed radiation therapy to the left breast on March 26, 2022 SUBJECTIVE Patient came into the office for follow-up visit after completion of radiation therapy treatment. She tolerated the treatment well. Denies any new lumps lumps or lymphadenopathy. No other new complaints. Review of system Constitutional: Patient did not mention fevers, sweats, fatigue, malaise, weight loss HEENT: Patient did not mention sinus [...] dizziness Skin: No lumps, bumps or rashes. Objective: Vital signs in last 24 hours: [...] No lymphadenopathy Neuro: No obvious focal deficit PATH LABS @IMAGEIMP@ Assessment: Plan: Patient Active Problem List Diagnosis Date Noted ??? 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 Tumor size 15 mm x 10 mm x 6 mm. No lymphovascular invasion. All margins negative for invasive carcinoma. Renal sentinel lymph nodes x2 - for carcinoma. Previous biopsy showed ER and [place] 95% positive Ki-67 less than 5% and HER-2/tony negative. Oncotype DX recurrence score 22. Status post left-sided lumpectomy and left sentinel lymph node biopsy done on January 15, 2022. Completed radiation therapy to the left breast on March 26, 2022 I have discussed the side effects of anastrozole in detail. I will start her on anastrozole 1 mg daily. We will see her back in 3 months with repeat labs. Left breast diagnostic mammogram will be done in 6 months. Bone density will be done in 6 months as well. Bone health. She will start taking vitamin D 500 mg daily. ? TOBACCO COUNSELING She is not a tobacco user. 04/04/2022 Wil Pena MD documented in this encounter Plan of Treatment Upcoming Encounters Date Type Department Care Team (Late st Contact Info) Description 11/18/2024 10:15 AM DIGITAL CONTENT PRODUCER Office Visit [facility] Oncology and Hematology - [place] [address] [facility] [address] [place] [address] Wil Pena MD [address] [facility] [address] [place] [address] documented as of this encounter Visit Diagnoses Diagnosis Malignant neoplasm of upper-outer quadrant of left breast in female, estrogen receptor positive- Primary documented in this encounter Care Teams Ed Tech Relationship Specialty Start Date End Date Gary Rich MD [address] [facility] [address] [place] [address] PCP - General Internal Medicine 01/29/22 documented as of this encounter
--- OUTSIDE RECORDS SUMMARY | 2024-11-08 06:19 | XMS_ITS | Clinical Summary ---
Author Organization [facility] Facility Address [address] [address] Care Team Providers Care Bench Worker Name Role Phone Gary Rich MD Primary Care Provider [phone] Social History Tobacco Use Types Packs/Day Years Used Date Smoking Tobacco: Never Assessed Comments Unknown Sex and Gender Information Value Date Recorded Sex Assigned at Not on file Legal Sex Female 6:25 PM EST Gender Identity Not on file Sexual Orientation Not on file Last Filed Vital Signs Vital Sign Reading Time Taken Comments Blood Pressure 120/62 12/03/2021 2:43 PM HEART SPECIALIST Pulse 62 12/03/2021 2:43 PM HEART SPECIALIST Temperature 36.7 ??C (98 ??F) 12/03/2021 2:43 PM HEART SPECIALIST Respiratory Rate 18 12/03/2021 2:43 PM HEART SPECIALIST Oxygen Saturation 99% 12/03/2021 2:43 PM HEART SPECIALIST Inhaled Oxygen Concentration - - Weight 83.5 kg (184 lb) 12/03/2021 2:43 PM HEART SPECIALIST Height 167.6 cm (5' 6 ) 12/03/2021 2:43 PM HEART SPECIALIST Body Mass Index 29.7 12/03/2021 2:43 PM HEART SPECIALIST Plan of Treatment Health Maintenance Due Date Last Done Comments Pneumococcal Vaccine: 65+ Ye ars (1 of 1 - PCV) 2005 Diabetes: Hemoglobin A1C 10/22/2021 Diabetes: Ophthalmology Exam 10/22/2021 Diabetes: Pedal Pulse Checked 10/22/2021 Diabetes: Sensory Foot Exam 10/22/2021 Diabetes: Visual Foot Exam 10/22/2021 Influenza Vaccine (#1) 2024 Hepatitis B Vaccine Aged Out No longe r eligible based on patient's age to complete this topic Insurance [facility] MEDICARE Care Teams Bench Worker Relationship Specialty Start Date End Date Gary Rich MD PCP - General Internal Medicine 10/16/21
--- OUTSIDE RECORDS SUMMARY | 2024-11-08 06:19 | XMS_ITS | Encounter Summary ---
Author Organization [facility] RAMAN Sol [employer] Address [address] [place] [address] Care Team Providers Care Wound Care Rn Name Role Phone Gary Rich MD Primary Care Provider Encounter Details Date Type Department Care Team (Late Contact Info) Description 02/12/2022 Abstract [facility] Oncology and Hematology - [place] [address] [place] [address] Pete Carmona, RN Social History Tobacco Use Types Packs/Day Years [...] st Contact Info) Description 11/18/2024 10:15 AM LIBRARY MEDIA ASSISTANT Office Visit [facility] Oncology and Hematology - [place] [address] [place] [address] Wil Pena MD [address] [facility] [address] [place] [address] documented as of this encounter Visit Diagnoses Not on filedocumented in this encounter Care Teams Wound Care Rn Relationship Specialty Start Date End Date Gary Rich MD [address] [facility] [address] [place] [address] PCP - General Internal Medicine 01/29/22 documented as of this encounter
--- OUTSIDE RECORDS SUMMARY | 2024-11-08 06:19 | XMS_ITS | Encounter Summary ---
Author Organization [facility] Address [address] Saunders: Epic Prelude ADT [place] [address] Care Team Providers Care College Football Coach Name Role Phone Gary Rich MD Primary Care Provider [phone] Encounter Details Date Type Department Care Team (Late st Contact Info) Description 06/04/2023 Orders Only Initial Department [address] SAUNDERS: [place] [address] Provider, Historical Malignant neoplasm of upper-outer quadrant of left breast in female, estrogen receptor positive Social History Tobacco Use Types Packs/Day Years [...] st Contact Info) Description 11/18/2024 10:15 AM SUPERVISOR PHOTOCOMPOSITION Office Visit [facility] Oncology and Hematology - [place] [address] [place] [address] [facility] [address] [place] [address] Wil Pena MD [address] [facility] [address] [place] [address] documented as of this encounter Procedures Procedure Name Priority Date/Time Associated Diagnosis Comments CANCER ANTIGEN 15-3 Routine 06/04/2023 7 :33 AM CDT Malignant neoplasm of upper-outer quadrant of left breast in female, estrogen receptor positive CBC WITH DIFFERENTIAL Routine 06/04/2023 7:33 AM CDT COMPREHENSIVE METABOLIC PANEL Routine 06/04/2023 7:33 AM CDT documented in this encounter Results * CANCER ANTIGEN 15-3 (06/04/2023 7:33 AM CDT) Pathologist [facility] CA 15-3 9 <32 U/mL [facility] Comment: This test was performed using the Siemens ([facility]) chemiluminescent method. Values obtained from different assay methods cannot be used interchangeably. CA 15-3 levels, regardless of value, should not be interpreted as absolute evidence of the presence or absence of disease. Test Performed at: [facility] [address] [place], [place] ??[phone] Natalia Mcfarland MD Blood 06/04/2023 7:33 AM CDT 06/04/2023 7:33 AM CDT Calvin Lugo MD CHEMISTRY ORDERABLES [facility] [phone] [facility] [address] [place] [address] * (ABNORMAL) COMPREHENSIVE METABOLIC PANEL (06/04/2023 7:33 AM CDT) Pathologist [facility] GLUCOSE 134(H) 65 - 99 mg/dL [facility] Comment: ? Fasting reference interval For someone without known diabetes, a glucose value >125 mg/dL indicates that they may have diabetes and this should be confirmed with a follow-up test. BUN 33(H) 7 - 25 mg/dL [facility] CREATININE 0.99(H) 0.60 - 0.95 mg/dL [facility] GFR 57(L) > OR = 60 mL/min/1.7 3m2 [facility] Comment: The eGFR is based on the CKD-EPI 2020 equation. To calculate the new eGFR from a previous Creatinine or Cystatin C result, go to https://www.kidney.org/professionals/ kdoqi/gfr%5Fcalculator BUN/CREAT RATIO 33(H) 6 - 22 (calc) [facility] SODIUM 138 135 - 146 mmol/L [facility] POTASSIUM 4.2 3.5 - 5.3 mmol/L [facility] CHLORIDE 100 98 - 110 mmol/L [facility] CO2 29 20 - 32 mmol/L [facility] CALCIUM 9.9 8.6 - 10.4 mg/dL [facility] TOTAL PROTEIN 6.8 6.1 - 8.1 g/dL [facility] ALBUMIN 4.2 3.6 - 5.1 g/dL [facility] GLOBULIN 2.6 1.9 - 3.7 g/dL (calc) [facility] ALBUMIN/GLOBULIN RATIO 1.6 1.0 - 2.5 (calc) [facility] BILIRUBIN TOTAL 0.7 0.2 - 1.2 mg/dL [facility] ALKALINE PHOSPHATASE 144 37 - 153 U/L [facility] AST 18 10 - 35 U/L [facility] ALT 14 6 - 29 U/L [facility] Comment: Test Performed at: [facility] [address] [place], [place] ??[phone] Natalia Mcfarland MD 06/04/2023 7:33 AM CDT 06/04/2023 7:33 AM CDT Calvin Lugo MD CHEMISTRY ORDERABLES [facility] [phone] [facility] [address] [place] [address] * (ABNORMAL) CBC WITH DIFFERENTIAL (06/04/2023 7:33 AM CDT) WBC 5.4 3.8 - 10.8 Thousand/u L [facility] RBC 4.58 3.80 - 5.10 Million/uL [facility] HEMOGLOBIN 12.2 11.7 - 15.5 g/dL [facility] HEMATOCRIT 37.7 35.0 - 45.0 % [facility] MCV 82.3 80.0 - 100.0 fL [facility] MCH 26.6(L) 27.0 - 33.0 pg [facility] MCHC 32.4 32.0 - 36.0 g/dL [facility] RDW 14.0 11.0 - 15.0 % [facility] PLATELETS 212 140 - 400 Thousand/u L [facility] MPV 10.8 7.5 - 12.5 fL [facility] NEUTROPHIL ABSOLUTE 3,418 1,500 - 7,800 cells/uL [facility] LYMPHOCYTE ABSOLUTE 1,382 850 - 3,900 cells/uL [facility] MONOCYTE ABSOLUTE 459 200 - 950 cells/uL [facility] EOSINOPHIL ABSOLUTE 119 15 - 500 cells/uL [facility] BASOPHILS ABSOLUTE 22 0 - 200 cells/uL [facility] NEUTROPHIL 63.3 % [facility] LYMPHOCYTES 25.6 % [facility] MONOCYTE 8.5 % [facility] EOSINOPHILS 2.2 % [facility] BASOPHILS 0.4 % [facility] Comment: Test Performed at: [facility] [address] [place] ??[phone] Natalia Mcfarland MD 06/04/2023 7:33 AM CDT 06/04/2023 7:33 AM CDT Calvin Lugo MD HEMATOLOGY ORDERABLE S Performing Organization Address City/State/[facility] Co de Phone Number [facility] [phone] [facility] [address] [place] [address] documented in this encounter Visit Diagnoses Diagnosis Malignant neoplasm of upper-outer quadrant of left breast in female, estrogen receptor positive documented in this encounter Care Teams College Football Coach Relationship Specialty Start Date End Date Gary Rich MD [address] [facility] [address] [place] [address] PCP - General Internal Medicine 01/29/22 documented as of this encounter
--- OUTSIDE RECORDS SUMMARY | 2024-11-08 06:19 | XMS_ITS | Encounter Summary ---
Author Organization [employer] , [facility] Address [address] [facility] [place] [address] Phone Care Team Providers Care High [employer] Library Media Specialist Name Role Phone Gary Rihc MD Primary Care Provider [phone] Encounter Details Date Type Department Care Team (Late st Contact Info) Description 10/22/2021 Orders Only [employer] [facility] [address] [facility] [address] [place] [address] Camden Xiong DO [address] [facility] 1 [place] [address] Social History Tobacco Use Types [...] on filedocumented in this encounter Care Teams High [employer] Library Media Specialist Relationship Specialty Start Date End Date Gary Rich MD PCP - General Internal Medicine 10/16/21 documented as of this encounter
--- OUTSIDE RECORDS SUMMARY | 2024-11-08 06:19 | XMS_ITS | Encounter Summary ---
Author Organization [facility] Address [address] [place] [address] Care Team Providers Care Steam Hoist Operator Name Role Phone Gary Rich MD Primary Care Provider [phone] Encounter Details Date Type Department Care Team (Late st Contact Info) Description 12/02/2023 External Device Data STL ABSTRACTION Provider, Abstract [...] st Contact Info) Description 11/18/2024 10:15 AM COTTON AGENT Office Visit [facility] Oncology and Hematology - Олег [address] [facility] [address] [place] [address] Wil Pena MD [address] [facility] [address] [place] [address] documented as of this encounter Visit Diagnoses Not on filedocumented in this encounter Care Teams Steam Hoist Operator Relationship Specialty Start Date End Date Gary Rich MD [address] [facility] [address] [place] [address] PCP - General Internal Medicine 01/29/22 documented as of this encounter
--- OUTSIDE RECORDS SUMMARY | 2024-11-08 06:19 | XMS_ITS | Encounter Summary ---
Author Organization [employer] , [facility] Address [address] [facility] [place] [address] Phone Care Team Providers Care Haul Driver Name Role Phone Gary Rich MD Primary Care Provider [phone] Encounter Details Date Type Department Care Team (Late st Contact Info) Description 10/22/2021 Orders Only [employer] [facility] [address] [facility] [address] [place] [address] Camden Xiong DO [address] [facility] 1 [place] [address] Social History Tobacco Use Types [...] on filedocumented in this encounter Care Teams Haul Driver Relationship Specialty Start Date End Date Gary Rich MD PCP - General Internal Medicine 10/16/21 documented as of this encounter
--- OUTSIDE RECORDS SUMMARY | 2024-11-08 06:19 | XMS_ITS | Encounter Summary ---
Author Organization [facility] Address [address] [place] [address] Care Team Providers Care Powerplant Operator Name Role Phone Gary Rich MD Primary Care Provider [phone] Encounter Details Date Type Department Care Team (Late st Contact Info) Description 10/24/2023 External Device Data STL ABSTRACTION Provider, Abstract [...] st Contact Info) Description 11/18/2024 10:15 AM SISAL OPERATOR Office Visit [facility] Oncology and Hematology - Олег [address] [facility] [address] [place] [address] Wil Pena MD [address] [facility] [address] [place] [address] documented as of this encounter Visit Diagnoses Not on filedocumented in this encounter Care Teams Powerplant Operator Relationship Specialty Start Date End Date Gary Rich MD [address] [facility] [address] [place] [address] PCP - General Internal Medicine 01/29/22 documented as of this encounter
--- OUTSIDE RECORDS SUMMARY | 2024-11-08 06:19 | XMS_ITS | Encounter Summary ---
Author Organization [facility] Address [address] [facility] [address] Saunders: Epic Prelude ADT [place] [address] Care Team Providers Care Electrical Construction Project Manager Name Role Phone Gary Rich MD Primary Care Provider [phone] Encounter Details Date Type Department Care Team (Late st Contact Info) Description 06/23/2022 Orders Only Initial Department [address] [address] SAUNDERS: [place] [address] Provider, Historical Social History Tobacco Use Types [...] st Contact Info) Description 11/18/2024 10:15 AM PLATE CLEANER Office Visit [facility] Oncology and Hematology - [place]лег [address] [place] [address] [facility] [address] [place] [address] Wil Pena MD [address] [facility] [address] [place] [address] documented as of this encounter Procedures Procedure Name Priority Date/Time Associated Diagnosis Comments CANCER ANTIGEN 15-3 Routine 06/23/2022 7 :37 AM CDT CBC WITH DIFFERENTIAL Routine 06/23/2022 7:37 AM CDT COMPREHENSIVE METABOLIC PANEL Routine 06/23/2022 7:37 AM CDT documented in this encounter Results * CANCER ANTIGEN 15-3 (06/23/2022 7:37 AM CDT) Pathologist [facility] CA 15-3 11 <32 U/mL [facility] Comment: This test was performed using the Siemens ([employer]) chemiluminescent method. Values obtained from different assay methods cannot be used interchangeably. CA 15-3 levels, regardless of value, should not be interpreted as absolute evidence of the presence or absence of disease. Test Performed at: [facility] [address] [place], [place] ??[phone] Brandon Gaines D.O., MPH 06/23/2022 7:37 AM CDT 06/23/2022 7:38 AM CDT Wil Pena MD CHEMISTRY ORDERABLES [facility] [phone] [facility] [address] [place] [address] * (ABNORMAL) COMPREHENSIVE METABOLIC PANEL (06/23/2022 7:37 AM CDT) Pathologist [facility] GLUCOSE 129(H) 65 - 99 mg/dL [facility] Comment: ? Fasting reference interval For someone without known diabetes, a glucose value >125 mg/dL indicates that they may have diabetes and this should be confirmed with a follow-up test. BUN 25 7 - 25 mg/dL [facility] CREATININE 1.04(H) 0.60 - 0.95 mg/dL [facility] GFR 54(L) > OR = 60 mL/min/1.7 3m2 [facility] Comment: The eGFR is based on the CKD-EPI 2020 equation. To calculate the new eGFR from a previous Creatinine or Cystatin C result, go to https://www.kidney.org/professionals/ kdoqi/gfr%5Fcalculator BUN/CREAT RATIO 24(H) 6 - 22 (calc) [facility] SODIUM 140 135 - 146 mmol/L [facility] POTASSIUM 3.9 3.5 - 5.3 mmol/L [facility] CHLORIDE 103 98 - 110 mmol/L [facility] CO2 28 20 - 32 mmol/L [facility] CALCIUM 10.2 8.6 - 10.4 mg/dL [facility] TOTAL PROTEIN 6.6 6.1 - 8.1 g/dL [facility] ALBUMIN 4.1 3.6 - 5.1 g/dL [facility] GLOBULIN 2.5 1.9 - 3.7 g/dL (calc) [facility] ALBUMIN/GLOBULIN RATIO 1.6 1.0 - 2.5 (calc) [facility] BILIRUBIN TOTAL 0.7 0.2 - 1.2 mg/dL [facility] ALKALINE PHOSPHATASE 146 37 - 153 U/L [facility] AST 20 10 - 35 U/L [facility] ALT 13 6 - 29 U/L [facility] Comment: Test Performed at: [facility] ??[phone] Brandon Gaines D.O., MPH 06/23/2022 7:37 AM CDT 06/23/2022 7:38 AM CDT Wil Pena MD CHEMISTRY ORDERABLES [facility] [phone] [facility] [address] * (ABNORMAL) CBC WITH DIFFERENTIAL (06/23/2022 7:37 AM CDT) WBC 4.1 3.8 - 10.8 Thousand/u L [facility] RBC 4.33 3.80 - 5.10 Million/uL [facility] HEMOGLOBIN 11.5(L) 11.7 - 15.5 g/dL [facility] HEMATOCRIT 36.2 35.0 - 45.0 % [facility] MCV 83.6 80.0 - 100.0 fL [facility] MCH 26.6(L) 27.0 - 33.0 pg [facility] MCHC 31.8(L) 32.0 - 36.0 g/dL [facility] RDW 13.8 11.0 - 15.0 % [facility] PLATELETS 199 140 - 400 Thousand/u L [facility] MPV 10.6 7.5 - 12.5 fL [facility] NEUTROPHIL ABSOLUTE 2,755 1,500 - 7,800 cells/uL [facility] LYMPHOCYTE ABSOLUTE 779(L) 850 - 3,900 cells/uL [facility] MONOCYTE ABSOLUTE 365 200 - 950 cells/uL [facility] EOSINOPHIL ABSOLUTE 180 15 - 500 cells/uL [facility] BASOPHILS ABSOLUTE 21 0 - 200 cells/uL [facility] NEUTROPHIL 67.2 % [facility] LYMPHOCYTES 19.0 % [facility] MONOCYTE 8.9 % [facility] EOSINOPHILS 4.4 % [facility] BASOPHILS 0.5 % [facility] Comment: Test Performed at: [facility] ??[phone] Brandon Gaines D.O., MPH 06/23/2022 7:37 AM CDT 06/23/2022 7:38 AM CDT Wil Pena MD HEMATOLOGY ORDERABLE S Performing Organization Address City/State/[facility] Co de Phone Number [facility] [phone] [facility] [address] [place] [address] documented in this encounter Visit Diagnoses Not on filedocumented in this encounter Care Teams Electrical Construction Project Manager Relationship Specialty Start Date End Date Gary Rich MD [address] [place] [address] PCP - General Internal Medicine 01/29/22 documented as of this encounter
--- OUTSIDE RECORDS SUMMARY | 2024-11-08 06:19 | XMS_ITS | Encounter Summary ---
Author Organization [facility] Address [address] [place] [address] Care Team Providers Care Carbonating Stone Cleaner Name Role Phone Gary Rich MD Primary Care Provider [phone] Reason for Referral * Radiology Services (Routine) - Closed Specialty Diagnoses / Procedures Referred By Sol t Referred To Contact Diagnoses Visit for screening mammogram Procedures MAMMO 3D PEAÑ SCREEN BILAT W OR WO CAD CHG SCREENING MAMMOGRAPHY BI 2-VIEW BREAST INC CAD CHG SCREENING DIGITAL BREAST TOMOSYNTHESIS BI Wil Pena MD [address] [place] [address] [facility] [address] [place] [address] Referral ID Status Reason Start Date Expiration Date V isits Requested Visits Authorized [id number] Closed STL CTS 06/28/2024 07/29/2025 1 1 Reason for Visit * Reason Comments Follow Up Cancer Encounter Details Date Type Department Care Team (Late st Contact Info) Description 06/28/2024 11:45 AM CDT Office Visit [facility] Oncology and Hematology - [place] [address] [place] [address] [facility] 200 [place] [address] Wil Pena MD [address] [place] [address] Malignant neoplasm of upper-outer quadrant of left breast in female, estrogen receptor positive (Primary Dx); Visit for screening mammogram Social History Tobacco Use Types Packs/Day Years [...] (178 lb) 06/28/2024 11:40 AM CDT Height - - Body Mass Index 28.73 07/01/2022 1:03 PM CDT documented in this encounter Progress Notes * Wil Pena MD - 06/28/2024 12:07 PM CDT HEMATOLOGY / ONCOLOGY PROGRESS NOTE Patient Identification: Name: Ashley Ortiz Age: 84 y.o. 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 Tumor size 15 mm x 10 mm x 6 mm. No lymphovascular invasion. All margins negative for invasive carcinoma. Renal sentinel lymph nodes x2 - for carcinoma. Previous biopsy showed ER and OR 95% positive Ki-67 less than 5% and [...] denies any new lumps bumps or lymphadenopathy. Weight and appetite stable. No chest pain and shortness of breath. No other new complaints. Review of system Constitutional: Patient did not mention fevers,fatigue, malaise, weight and appetite stable, deniesany tiredness and fatigue HEENT: Patient did not mention sinus congestion, [...] the left breast without any masses or lymphadenopathy Exam as above PATH LABS Labs from [...] platelet 198,000 creatinine 1.0 CA 15-3 10 Labs from June 24 showed CA 15-3 9 WBC 4.9 hemoglobin 12.7 platelet count 348,000 total bilirubin0.7 Assessment: Plan: Patient Active Problem List Diagnosis [...] for carcinoma. Previous biopsy showed ER and OR 95% positive Ki-67 less than 5% and HER-2/tony negative. Oncotype DX recurrence score 22. Status post left-sided lumpectomy and left sentinel lymph node biopsy done on January 15, 2022. Completed radiation therapy to the left breast on March 26, 2022 Arimidex started on April 04, 2022. Discontinued 3 months later due to side effects. There is no evidence of relapse of disease on my examination. Labs including tumor marker is stable. I recommended regular self-examination on a monthly basis. Repeat bilateral screening mammogram will be done in 3 months and follow- up in 4 months Bone health. She denies any bone pain. Vitamin D was discontinued previously by the primary care physician due to elevated levels. 06/28/2024 Wil Pena MD documented in this encounter Plan of Treatment Upcoming Encounters Date Type Department Care Team (Late st Contact Info) Description 11/18/2024 10:15 AM TOP DYEING MACHINE LOADER Office Visit [facility] Oncology and Hematology - Олег [address] [facility] [address] [place] [address] Wil Pena MD [address] [facility] [address] [place] [address] Scheduled Orders Name Type Priority Associated Diagnoses Orde r Schedule CANCER ANTIGEN 15-3 Lab Routine Malignant neoplasm of upper-outer quadrant of left breast in female, estrogen receptor positive Expected: 10/18/2024, Expires: 06/28/2025 CBC WITH DIFFERENTIAL Lab Stat Malignant neoplasm of upper-outer quadrant of left breast in female, estrogen receptor positive Expected: 10/18/2024, Expires: 06/28/2025 COMPREHENSIVE METABOLIC PANEL Lab Stat Malignant neoplasm of upper-outer quadrant of left breast in female, estrogen receptor positive Expected: 10/18/2024, Expires: 06/28/2025 MAMMO 3D PEÑA SCREEN BILAT W OR WO CAD Imaging Routine Visit for screening mammogram Expected: 09/28/2024, Expires: 12/29/2025 documented as of this encounter Visit Diagnoses Diagnosis Malignant neoplasm of upper-outer quadrant of left breast in female, estrogen receptor positive- Primary Visit for screening mammogram Other screening mammogram documented in this encounter Care Teams Carbonating Stone Cleaner Relationship Specialty Start Date End Date Gary Rich MD [address] [facility] 23 [place] [address] PCP - General Internal Medicine 01/29/22 documented as of this encounter
--- OUTSIDE RECORDS SUMMARY | 2024-11-08 06:19 | XMS_ITS | Encounter Summary ---
Author Organization [facility] RAMAN Sol [facility] Address [address] [place] [address] Care Team Providers Care Tinning Equipment Tender Name Role Phone Gary Rich MD Primary Care Provider [phone] Reason for Referral * Eval and Treat (Routine) - Closed Specialty Diagnoses / Procedures Referred By Contac t Referred To Contact Diagnoses Malignant neoplasm of upper-outer quadrant of left breast in female, estrogen receptor positive Wil Pena MD [address] [place] [address] Leidy Molina MD [address] [facility] [address] [place] [address] Referral ID Status Reason Start Date Expiration Date V isits Requested Visits Authorized [id number] Closed CRS to Schedule 01/29/2022 01/29/2023 1 1 Reason for Visit * Reason Comments Establish Care Establish care for m alignant neoplasm of unspecified site of left breast Encounter Details Date Type Department Care Team (Late st Contact Info) Description 01/29/2022 3:00 PM CDT Office Visit [facility] Oncology and Hematology - Олег [address] [facility] [address] [place] [address] Wil Pena MD [address] [place] [address] Malignant neoplasm of upper-outer quadrant [...] Sign Reading Time Taken Comments Blood Pressure 121/70 01/29/2022 3:13 PM CDT Pulse 71 01/29/2022 3:13 PM CDT Temperature 36.3 ??C (97.4 ??F) 01/29/2022 3:13 PM CD T Respiratory Rate - - Oxygen Saturation 96% 01/29/2022 3:13 PM CDT Inhaled Oxygen Concentration - - Weight 82.3 kg (181 lb 8 oz) 01/29/2022 3:13 PM CDT Height 167.6 cm (5' 6 ) 01/29/2022 3:13 PM CDT Body Mass Index 29.29 01/29/2022 3:13 PM CDT documented in this encounter Progress Notes * Wil Pena MD - 01/29/2022 4:41 PM CDT Hematology-oncology consult Note Requesting Physician Jose Boyd MD Primary Care Physician Gary Rich MD Problem list There is no problem list on file for this patient. Previous TREATMENT ? Measurable Disease ? Reason for Visit Ashley Ortiz is a 81 y.o. female who was referred for consultation for breast cancer. History of present illness This is a pleasant 81-year-old female who has been in good health except history of hypertension and hyperlipidemia had routine screening mammogram done in October 2021 that showed possible left breast mass. Left breast ultrasound done on December 17, 2021 showed irregular hypoechoic massat 1 o'clock position 4 cm from the nipple. Diagnostic mammogram was performed on December 24. Patient had a stereotactic biopsy of the mass in the upper outer quadrant of the left breast done on December 30 and pathology came back positive for moderately differentiated invasive ductal carcinoma grade 2 ER 95% positive AZ 95% positive Ki-67 less than 5% and HER-2/tony negative. Patient had left ishan ast lumpectomy and left axillary sentinel lymph node biopsy done on January 15, 2022. She is recovering well from the surgery. She denies any previous history of malignancy. There is no family history of breast cancer. Past Medical History Past Medical History: Diagnosis Date ??? HTN (hypertension) ??? Hyperlipidemia Surgical History Past Surgical History: Procedure Laterality Date ??? HX CHOLECYSTECTOMY ??? HX HYSTERECTOMY ??? HX KNEE REPLACEMENT Medications Current Outpatient Medications Medication Sig Dispense Refill ??? metFORMIN (GLUCOPHAGE) 500 mg tablet metformin 500 mg tablet ??? aspirin (BEATRICE) 325 mg tablet Take 325 mg by mouth daily. ??? aMILoride-hydroCHLOROthiazide (MODURETIC) 5-50 mg Tablet Take 1 Tablet by mouth daily. ??? atorvastatin (LIPITOR) 20 mg tablet Take 20 mg by mouth daily. No current facility-administered medications for this visit. Allergies Allergies Allergen Reactions ??? Nurkjhe-Jyz-Byq Reductase Inhibitors Muscle Pain Intolerant to statins due to myalgias. ??? Carvedilol Unknown Immunizations: There is no immunization history on file for this patient. Family History Family History Problem Relation Name Age of Onset ??? Heart Disease Father ??? Diabetes Father ??? Heart Disease Mother ??? Diabetes Mother ??? Heart Disease Brother ??? Heart Disease Brother ??? Diabetes Brother Social History Social History Tobacco Use ??? Smoking status: Never Smoker ??? Smokeless tobacco: Never Used Substance Use Topics ??? Alcohol use: Never Review of Systems Constitutional: Patient did not mention fever; no night sweats; no anorexia; no weight loss; no fatique NEENT: Patient did not mention headache; no change in vision; no change in hearing; no sore throat;no dysphagia Respiratory: Patient did not mention shortness of breath; no pleuritic chest pain; no cough; no hemoptysis Cardiac: Patient did not mention cardiac-like chest pain; no palpitations; no orthopnea; no PND; noDOE Breasts: Patient did not mention tenderness; no masses GI: Patient did not mention abdominal pain; no nausea; no vomiting; no diarrhea; no hematochezia; no melena : Patient did not mention dysuria; no frequency; no hesitancy; no hematuria [employer]: Musculosketetal: Patient did not mention bone pain; no arthralgia; no joint swelling; no myalgia; Skin: Patient did not mention pruritis; no rash; no petechiae; no ecchymoses Endocrine: Patient did not mention polydipsia; no polyuria; no unusual weight gain Neuro: Patient did not mention headache; no change in vision; no sensory changes; no muscle weakness; no confusion; no seizures Psych: Patient did not mention anxiety; no depression; Physical Exam Vitals: As per nursing note Constitutional: Well developed, well nourished, no acute distress, non-toxic appearance Teeth and gum. No signs of infection or swelling. Eyes: PERRL, conjunctiva normal HEENT: Atraumatic, external ears normal, nose normal, oropharynx moist, no pharyngeal exudates. no sinus tenderness Neck- normal range of motion, no tenderness, supple Respiratory: No respiratory distress, normal breath sounds, no rales, no wheezing Breasts: Left breast post lumpectomy and sentinel lymph node biopsy changes without any masses and lymphadenopathy. Right breast no masses lymphadenopathy. Cardiovascular: Normal rate, normal rhythm, no murmurs, no gallops, no rubs GI: Soft, nondistended, normal bowel sounds, nontender, no splenomegaly, no hepatomegaly, no mass, no rebound, no guarding : No costovertebral angle tenderness Musculoskeletal: No edema, no tenderness, no deformities. Back- no tenderness Integument: Well hydrated, no rash, Digits and nails inspection normal Lymphatic: No lymphadenopathy noted Neurologic: Alert & oriented x 3, CN 2-12 normal, normal motor function, normal sensory function, no focal deficits noted Psychiatric: Speech and behavior appropriate ? labs No results found for this or any previous visit (from the past 24 hour(s)). Pathology ? Imaging & Other Studies Performance Status? Assessment / Plan: ? 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 Tumor size 15 mm x 10 mm x 6 mm. No lymphov ascular invasion. All margins negative for invasive carcinoma. Renal sentinel lymph nodes x2 - for carcinoma. Previous biopsy showed ER and AZ 95% positive Ki-67 less than 5% and HER-2/tony negative. This is an early stage breast cancer. Patient is recovering well from the surgery. I have discussedthe staging for breast cancer as well as different treatment modalities in detail. I will refer herfor radiation oncology consultation. We will order Oncotype DX recurrence score for to check any role for chemotherapy in this situation. Genetic testing is not needed in her age group without any family history of malignancy. We also discussed role of hormonal therapy with the patient. She will start anastrozole 1 mg daily after completion of radiation therapy treatment. I have answered all the questions to patient satisfaction. Hyperlipidemia. She is on Lipitor. Hypertension. Patient is on moduretic. Thank you very much for allowing me to participate in Ashley Ortiz's evaluation and management. Please feel free to contact if I can be of any further assistance in your patient???s care requiring hematology or oncology evaluation. Sincerely, ? ? Wil Pena M.D. cell TOBACCO COUNSELING She is not a tobacco user. Wil Pena MD ,01/29/2022 4:41 PM ? Total time spent 60 minutes, two third of the total time spent counseling patient [id number]. CC:?MD Hilario Valadez Lawrence, MD documented in this encounter Plan of Treatment Upcoming Encounters Date Type Department Care Team (Late st Contact Info) Description 11/18/2024 10:15 AM SENIOR SOLUTIONS ARCHITECT Office Visit [facility] Oncology and Hematology [facility] [address] [place] [address] [facility] [address] [place] [address] Wil Pena MD [address] [facility] [address] [place] [address] Scheduled Referrals Name Type Priority Associated Diagnoses Orde r Schedule AMB REFERRAL TO RADIATION ONCOLOGY Outpatient Referral Routine Malignant neoplasm of upper-outer quadrant of left breast in female, estrogen receptor positive Ordered: 01/29/2022 documented as of this encounter Visit Diagnoses Diagnosis Malignant neoplasm of upper-outer quadrant of left breast in female, estrogen receptor positive- Primary documented in this encounter Care Teams Tinning Equipment Tender Relationship Specialty Start Date End Date Gary Rich MD [address] [facility] [address] [place] [address] PCP - General Internal Medicine 01/29/22 documented as of this encounter
--- OUTSIDE RECORDS SUMMARY | 2024-11-08 06:19 | XMS_ITS | Encounter Summary ---
Author Organization [facility] Address [address] [place] [address] Care Team Providers Care Rn Case Manager Hospice Name Role Phone Gary Rich MD Primary Care Provider [phone] Encounter Details Date Type Department Care Team [...] st Contact Info) Description 11/18/2024 10:15 AM DIRECTOR OF SURGERY Office Visit [facility] Oncology and Hematology - Олег [address] [facility] [address] [place] [address] Wil Pena MD [address] [facility] [address] [place] [address] documented as of this encounter Visit Diagnoses Not on filedocumented in this encounter Care Teams Rn Case Manager Hospice Relationship Specialty Start Date End Date Gary Rich MD [address] [facility] [address] [place] [address] PCP - General Internal Medicine 01/29/22 documented as of this encounter
--- OUTSIDE RECORDS SUMMARY | 2024-11-08 06:19 | XMS_ITS | Encounter Summary ---
Author Organization [facility] RAMAN Sol [employer] Address [address] [place] [address] Care Team Providers Care Electrical Software Engineer Name Role Phone Gary Rich MD Primary Care Provider [phone] Encounter Details Date Type Department Care Team (Late st Contact Info) Description 03/26/2022 Abstract [facility] Oncology and Hematology - Олег [address] [place] [address] Pete Carmona, RN Social History [...] st Contact Info) Description 11/18/2024 10:15 AM HANDICAPPED TEACHER Office Visit [facility] Oncology and Hematology - Олег [address] [place] [address] Wil Pena MD [address] [facility] [address] [place] [address] documented as of this encounter Visit Diagnoses Not on filedocumented in this encounter Care Teams Electrical Software Engineer Relationship Specialty Start Date End Date Gary Rich MD [address] [facility] [address] [place] [address] PCP - General Internal Medicine 01/29/22 documented as of this encounter
--- OUTSIDE RECORDS SUMMARY | 2024-11-08 06:19 | XMS_ITS | Encounter Summary ---
Author Organization [employer] Address [address] [facility] [place] [address] Phone Care Team Providers Care Home Economics Teacher Name Role Phone Gary Rich MD Primary Care Provider [phone] Encounter Details Date Type Department Care Team (Late st Contact Info) Description 10/22/2021 Documentation Only [place] [facility] [facility] [address] [place] [address] 1 [place] [address] Camden Xiong DO [address] [facility] [address] [place] [address] Social History Tobacco Use Types [...] on filedocumented in this encounter Care Teams Home Economics Teacher Relationship Specialty Start Date End Date Gary Rich MD PCP - General Internal Medicine 10/16/21 documented as of this encounter
--- OUTSIDE RECORDS SUMMARY | 2024-11-08 06:19 | XMS_ITS | Encounter Summary ---
Author Organization [facility] RAMAN Sol [employer] Address [address] [place] [address] Care Team Providers Care Honing Machine Set Up Operator Tool Name Role Phone Gary Rich MD Primary Care Provider [phone] Reason for Visit * Reason Comments Follow Up Encounter Details Date Type Department Care Team (Late st Contact Info) Description 01/27/2023 2:15 PM CDT Office Visit [facility] Oncology and Hematology - Олег [address] [facility] [address] [address] Calvin Lugo MD [address] [place] [address] [place] [address] Malignant neoplasm of upper-outer quadrant of left [...] suspected to have Coronavirus/COVID-19? No / Unsure 01/27/2023 1:47 PM CDT documented as of this encounter Last Filed Vital Signs Vital Sign Reading Time Taken Comments Blood Pressure 132/72 01/27/2023 1:53 PM CDT Pulse 72 01/27/2023 1:53 PM CDT Temperature 36.6 ??C (97.8 ??F) 01/27/2023 1:53 PM CD T Respiratory Rate 10 01/27/2023 1:53 PM CDT Oxygen Saturation 99% 01/27/2023 1:53 PM CDT Inhaled Oxygen Concentration - - Weight 79.4 kg (175 lb) 01/27/2023 1:53 PM CDT Height - - Body Mass Index 28.25 07/01/2022 1:03 PM CDT documented in this encounter Progress Notes * Calvin Lugo MD - 01/27/2023 2:16 PM CDT HEMATOLOGY / ONCOLOGY PROGRESS NOTE [...] for carcinoma. Previous biopsy showed ER and OK 95% positive Ki-67 less than 5% and [...] flashes and night sweats and hair loss. She has stopped taking the Arimidex because of her side effects Review of system Constitutional: Patient did not [...] 4.8 hemoglobin 12.3 platelet 208,000 Labs from 01/19/2023 show a hemoglobin 12.4 white count of 4.2 platelets 186,000 CA 15-3 is 11 Assessment: Plan: Patient Active Problem List Diagnosis [...] for carcinoma. Previous biopsy showed ER and OK 95% positive Ki-67 less than 5% and HER-2/tony negative. Oncotype DX recurrence score 22. Status post left-sided lumpectomy and left sentinel lymph node biopsy done on January 15, 2022. Completed radiation therapy to the left breast on March 26, 2022 Arimidex started on April 04, 2022. Patient has stopped taking the Arimidex due to side effects discussion as to possible use of tamoxifen however patient at present is not interested in taking adjuvant therapy stating her age and aunts possible side effects Repeat bilateral screening mammogram will be done in 6 months. Bone health. Bone density will be done next month. Continue vitamin D. TOBACCO COUNSELING She is not a tobacco user. 01/27/2023 Calvin Lugo MD documented in this encounter Plan of Treatment Upcoming Encounters Date Type Department Care Team (Late st Contact Info) Description 11/18/2024 10:15 AM DESKTOP PUBLISHING OPERATOR Office Visit [facility] Oncology and Hematology [facility] [address] [facility] [address] [place] [address] Wil Pena MD [address] [facility] [address] [place] [address] documented as of this encounter Results * CANCER ANTIGEN 15-3 (06/04/2023 7:33 AM CDT) CA 15-3 9 <32 U/mL [facility] Comment: This test was performed using the Siemens (Atieva) chemiluminescent method. Values obtained from different assay methods cannot be used interchangeably. CA 15-3 levels, regardless of value, should not be interpreted as absolute evidence of the presence or absence of disease. Test Performed at: [facility] [address] [place] [address] ??[id number] Natalia Mcfarland MD Blood 06/04/2023 7:33 AM CDT 06/04/2023 7:33 AM CDT Calvin Lugo MD CHEMISTRY ORDERABLES [facility] [phone] [facility] [employer] [address] documented in this encounter Visit Diagnoses Diagnosis Malignant neoplasm of upper-outer quadrant of left breast in female, estrogen receptor positive- Primary documented in this encounter Care Teams Honing Machine Set Up Operator Tool Relationship Specialty Start Date End Date Gary Rich MD [address] [facility] [address] [place] [address] PCP - General Internal Medicine 01/29/22 documented as of this encounter
--- OUTSIDE RECORDS SUMMARY | 2024-11-08 06:19 | XMS_ITS | Encounter Summary ---
Author Organization [facility] Address [address] [facility] Attn: Epic Prelude ADT [place] [address] Care Team Providers Care Electrician Substation Supervisor Name Role Phone Gary Rich MD Primary Care Provider [phone] Encounter Details Date Type Department Care Team (Latest Contact Info) Description 01/27/2023 Travel Social History Tobacco Use Types Packs/Day [...] st Contact Info) Description 11/18/2024 10:15 AM RESEARCH KENNEL SUPERVISOR Office Visit [facility] Oncology and Hematology - Олег [address] [facility] 200 [place] [address] Wil Pena MD [address] [facility] [address] [place] [address] documented as of this encounter Visit Diagnoses Not on filedocumented in this encounter Care Teams Electrician Substation Supervisor Relationship Specialty Start Date End Date Gary Rich MD [address] [facility] [address] [place] [address] PCP - General Internal Medicine 01/29/22 documented as of this encounter
--- OUTSIDE RECORDS SUMMARY | 2024-11-08 06:19 | XMS_ITS | Encounter Summary ---
Author Organization [facility] Address [address] [facility] Attn: Epic Prelude ADT [place] [address] Care Team Providers Care Sorting And Folding Supervisor Name Role Phone Gary Rich MD Primary Care Provider [phone] Encounter Details Date Type Department Care Team (Latest Contact Info) Description 04/04/2022 Travel Social History Tobacco Use Types Packs/Day [...] AM CDT documented as of this encounter Plan of Treatment Upcoming Encounters Date Type Department Care Team (Late st Contact Info) Description 11/18/2024 10:15 AM BUZZLE BUFFER Office Visit [facility] Oncology and Hematology - Олег [address] [facility] [address] [place] [address] Wil Pena MD [address] [facility] [address] [place] [address] documented as of this encounter Visit Diagnoses Not on filedocumented in this encounter Care Teams Sorting And Folding Supervisor Relationship Specialty Start Date End Date Gary Rich MD [address] [facility] [address] [place] [address] PCP - General Internal Medicine 01/29/22 documented as of this encounter
--- OUTSIDE RECORDS SUMMARY | 2024-11-08 06:19 | XMS_ITS | Encounter Summary ---
Author Organization [facility] Address [address] [place] [address] Care Team Providers Care Fitness Technician Name Role Phone Gary Rich MD Primary Care Provider [phone] Encounter Details Date Type Department Care Team (Late st Contact Info) Description 12/28/2023 External Device Data STL ABSTRACTION Provider, Abstract [...] st Contact Info) Description 11/18/2024 10:15 AM CUSTOMER SUPPORT EXECUTIVE Office Visit [facility] Oncology and Hematology - Олег [address] [facility] [address] [place] [address] Wil Pena MD [address] [facility] [address] [place] [address] documented as of this encounter Visit Diagnoses Not on filedocumented in this encounter Care Teams Fitness Technician Relationship Specialty Start Date End Date Gary Rich MD [address] [facility] [address] [place] [address] PCP - General Internal Medicine 01/29/22 documented as of this encounter
--- OUTSIDE RECORDS SUMMARY | 2024-11-08 06:19 | XMS_ITS | Encounter Summary ---
Author Organization [facility] RAMAN Sol [facility] Address [address] [place] [address] Care Team Providers Care Prototype Machine Operator Name Role Phone Gary Rich MD Primary Care Provider [phone] Reason for Referral * Radiology Services (Routine) - Closed Specialty Diagnoses / Procedures Referred By Contac t Referred To Contact Diagnoses Visit for screening mammogram Procedures MAMMO SCRN BILAT 3D PEÑA W OR WO CAD CHG SCREENING MAMMOGRAPHY BI 2-VIEW BREAST INC CAD CHG SCREENING DIGITAL BREAST TOMOSYNTHESIS BI Wil Pena MD [address] [place] [address] [place] [address] Referral ID Status Reason Start Date Expiration Date V isits Requested Visits Authorized [id number] Closed STL CTS 06/15/2023 07/15/2024 1 1 Reason for Visit * Reason Comments Cancer Encounter Details Date Type Department Care Team (Late st Contact Info) Description 06/15/2023 2:30 PM CDT Office Visit [facility] Oncology and Hematology [place] [address] [address] [facility] [address] [place] [address] Wil Pena MD [address] [place] [address] Malignant neoplasm of upper-outer quadrant [...] Sign Reading Time Taken Comments Blood Pressure 128/69 06/15/2023 2:29 PM CDT Pulse 64 06/15/2023 2:29 PM CDT Temperature 36.9 ??C (98.5 ??F) 06/15/2023 2:29 PM CD T Respiratory Rate 16 06/15/2023 2:29 PM CDT Oxygen Saturation 99% 06/15/2023 2:29 PM CDT Inhaled Oxygen Concentration - - Weight 78.5 kg (173 lb) 06/15/2023 2:29 PM CDT Height - - Body Mass Index 27.92 07/01/2022 1:03 PM CDT documented in this encounter Progress Notes * Wil Pena MD - 06/15/2023 5:28 PM CDT HEMATOLOGY / ONCOLOGY PROGRESS NOTE [...] for carcinoma. Previous biopsy showed ER and ID 95% positive Ki-67 less than 5% and [...] for follow-up visit. She denies any new lung bumps or lymphadenopathy. She quit taking Arimidex 3 months after the start last year due to mental fogginess, hearing loss along with tiredness and fatigue. Denies any other new complaint. Review of system Constitutional: Patient did not mention fevers,fatigue, malaise, weight loss, denies any night sweats and hot flashes HEENT: Patient did not mention sinus congestion, [...] rashes. 12 point review system was reviewed Objective: Vital signs in [...] No lymphadenopathy Neuro: No obvious focal deficit Breast examination showed postoperative changes and scarring in the left breast without any masses or lymphadenopathy. Exam as above PATH LABS Labs from June 24 showed hemoglobin 11.5 creatinine 1.04 CA 15-3 11 Labs from 22 September showed CA 15-3 10 creatinine 0.9 WBC 4.8 hemoglobin 12.3 platelet 208,000 Labs from June 04 showed CA 15-3 9 creatinine 0.9 WBC 5.4 hemoglobin 12.2 platelet 212,000 Assessment: Plan: Patient Active Problem List Diagnosis [...] for carcinoma. Previous biopsy showed ER and ID 95% positive Ki-67 less than 5% and HER-2/tony negative. Oncotype DX recurrence score 22. Status post left-sided lumpectomy and left sentinel lymph node biopsy done on January 15, 2022. Completed radiation therapy to the left breast on March 26, 2022 Arimidex started on April 04, 2022. Discontinued 3 months later due to side effects. On examination there is no evidence of relapse of disease. Patient will have bilateral screening mammogram in 3 months. I have suggested trying other hormonal therapy but she does not want to try anymore. At this point we will see her back in 4 months. Bone health. She will continue vitamin D. 06/15/2023 Wil Pena MD documented in this encounter Plan of Treatment Upcoming Encounters Date Type Department Care Team (Late st Contact Info) Description 11/18/2024 10:15 AM PARASITOLOGIST Office Visit [facility] Oncology and Hematology [facility] [address] [facility] [address] [place] [address] Wil Pena MD [address] [facility] [address] [place] [address] Scheduled Orders Name Type Priority Associated Diagnoses Orde r Schedule MAMMO SCRN BILAT 3D PEÑA W OR WO CAD Imaging Routine Visit for screening mammogram Expected: 09/15/2023, Expires: 12/16/2024 documented as of this encounter Procedures Procedure Name Priority Date/Time Associated Diagnosis Comments CANCER ANTIGEN 15-3 Routine 10/09/2023 8 :33 AM PARASITOLOGIST Malignant neoplasm of upper-outer quadrant of left breast in female, estrogen receptor positive CBC WITH DIFFERENTIAL Routine 10/09/2023 8:33 AM PARASITOLOGIST COMPREHENSIVE METABOLIC PANEL Routine 10/09/2023 8:33 AM PARASITOLOGIST documented in this encounter Results * (ABNORMAL) COMPREHENSIVE METABOLIC PANEL (10/09/2023 8:33 AM PARASITOLOGIST) GLUCOSE 133(H) 65 - 99 mg/dL [facility] Comment: ? Fasting reference interval For someone without known diabetes, a glucose value >125 mg/dL indicates that they may have diabetes and this should be confirmed with a follow-up test. BUN 30(H) 7 - 25 mg/dL [facility] CREATININE 1.11(H) 0.60 - 0.95 mg/dL [facility] GFR 49(L) > OR = 60 mL/min/1.7 3m2 [facility] BUN/CREAT RATIO 27(H) 6 - 22 (calc) [facility] SODIUM 139 135 - 146 mmol/L [facility] POTASSIUM 3.9 3.5 - 5.3 mmol/L [facility] CHLORIDE 100 98 - 110 mmol/L [facility] CO2 29 20 - 32 mmol/L [facility] CALCIUM 9.9 8.6 - 10.4 mg/dL [facility] TOTAL PROTEIN 7.1 6.1 - 8.1 g/dL [facility] ALBUMIN 4.2 3.6 - 5.1 g/dL [facility] GLOBULIN 2.9 1.9 - 3.7 g/dL (calc) [facility] ALBUMIN/GLOBULIN RATIO 1.4 1.0 - 2.5 (calc) [facility] BILIRUBIN TOTAL 0.7 0.2 - 1.2 mg/dL [facility] ALKALINE PHOSPHATASE 153 37 - 153 U/L [facility] AST 18 10 - 35 U/L [facility] ALT 14 6 - 29 U/L [facility] Comment: Test Performed at: [facility] [address] [address] [place] ??[phone] Natalia Mcfarland MD 10/09/2023 8:33 AM PARASITOLOGIST 10/09/2023 8:34 AM PARASITOLOGIST Wil Pena MD CHEMISTRY ORDERABLES [facility] [phone] [facility] [address] [place] [address] * (ABNORMAL) CBC WITH DIFFERENTIAL (10/09/2023 8:33 AM PARASITOLOGIST) WBC 5.2 3.8 - 10.8 Thousand/u L [facility] RBC 4.85 3.80 - 5.10 Million/uL [facility] HEMOGLOBIN 12.7 11.7 - 15.5 g/dL [facility] HEMATOCRIT 39.6 35.0 - 45.0 % [facility] MCV 81.6 80.0 - 100.0 fL [facility] MCH 26.2(L) 27.0 - 33.0 pg [facility] MCHC 32.1 32.0 - 36.0 g/dL [facility] RDW 14.0 11.0 - 15.0 % [facility] PLATELETS 204 140 - 400 Thousand/u L [facility] MPV 10.5 7.5 - 12.5 fL [facility] NEUTROPHIL ABSOLUTE 3,370 1,500 - 7,800 cells/uL [facility] LYMPHOCYTE ABSOLUTE 1,243 850 - 3,900 cells/uL [facility] MONOCYTE ABSOLUTE 426 200 - 950 cells/uL [facility] EOSINOPHIL ABSOLUTE 120 15 - 500 cells/uL [facility] BASOPHILS ABSOLUTE 42 0 - 200 cells/uL [facility] NEUTROPHIL 64.8 % [facility] LYMPHOCYTES 23.9 % [facility] MONOCYTE 8.2 % [facility] EOSINOPHILS 2.3 % [facility] BASOPHILS 0.8 % [facility] Comment: Test Performed at: [facility] [address] [place], [place] ??[phone] Natalia Mcfarland MD 10/09/2023 8:33 AM PARASITOLOGIST 10/09/2023 8:34 AM PARASITOLOGIST Wil Pena MD HEMATOLOGY ORDERABLE S Performing Organization Address [facility] Co de Phone Number [facility] [phone] [facility] [address] [place] [address] * CANCER ANTIGEN 15-3 (10/09/2023 8:33 AM PARASITOLOGIST) CA 15-3 10 <32 U/mL [facility] Comment: This test was performed using the Tvinci (Dokogeo) chemiluminescent method. Values obtained from different assay methods cannot be used interchangeably. CA 15-3 levels, regardless of value, should not be interpreted as absolute evidence of the presence or absence of disease. Test Performed at: [facility] ??[phone] Natalia Mcfarland MD Blood 10/09/2023 8:33 AM PARASITOLOGIST 10/09/2023 8:34 AM PARASITOLOGIST Wil Pena MD CHEMISTRY ORDERABLES Performing Organization Address [facility] Co de Phone Number [facility] [phone] [facility] [address] [place] [address] documented in this encounter Visit Diagnoses Diagnosis Malignant neoplasm of upper-outer quadrant of left breast in female, estrogen receptor positive- Primary Visit for screening mammogram Other screening mammogram documented in this encounter Care Teams Prototype Machine Operator Relationship Specialty Start Date End Date Gary Rich MD [address] [place] [address] [address] [place] [address] PCP - General Internal Medicine 01/29/22 documented as of this encounter
--- OUTSIDE RECORDS SUMMARY | 2024-11-08 06:19 | XMS_ITS | Encounter Summary ---
Author Organization [facility] Address [address] [facility] [facility] [address] Saunders: Epic Prelude [place]T [place] [address] Care Team Providers Care Marina Porter Name Role Phone Gary Rich MD Primary Care Provider [phone] Encounter Details Date Type Department Care Team (Late st Contact Info) Description 02/16/2024 Orders Only Initial Department [address] SAUNDERS: [place] [address] Provider, Historical Social History Tobacco Use Types [...] st Contact Info) Description 11/18/2024 10:15 AM ADVANCED DEVELOPER Office Visit [facility] Oncology and Hematology - [place] [address] [place] [address] [facility] [address] [place] [address] Wil Pena MD [address] [facility] [address] [place] [address] documented as of this encounter Procedures Procedure Name Priority Date/Time Associated Diagnosis Comments CANCER ANTIGEN 15-3 Routine 02/16/2024 7 :32 AM CDT CBC WITH DIFFERENTIAL Routine 02/16/2024 7:32 AM CDT COMPREHENSIVE METABOLIC PANEL Routine 02/16/2024 7:32 AM CDT documented in this encounter Results * CANCER ANTIGEN 15-3 (02/16/2024 7:32 AM CDT) CA 15-3 10 <32 U/mL [facility] Comment: This test was performed using the Siemens ([employer]) chemiluminescent method. Values obtained from different assay methods cannot be used interchangeably. CA 15-3 levels, regardless of value, should not be interpreted as absolute evidence of the presence or absence of disease. FASTING:NO FASTING: NO Test Performed at: [address] ??[phone] Natalia Mcfarland MD 02/16/2024 7:3 2 AM CDT 02/16/2024 7:35 AM CDT Wil Pena MD CHEMISTRY ORDERABLES [facility] [phone] [address] * (ABNORMAL) COMPREHENSIVE METABOLIC PANEL (02/16/2024 7:32 AM CDT) Pathologist [facility] GLUCOSE 134 65 - 139 mg/dL [facility] Comment: ? Non-fasting reference interval BUN 26(H) 7 - 25 mg/dL [facility] CREATININE 1.01(H) 0.60 - 0.95 mg/dL [facility] GFR 55(L) > OR = 60 mL/min/1.7 3m2 [facility] BUN/CREAT RATIO 26(H) 6 - 22 (calc) [facility] SODIUM 139 135 - 146 mmol/L [facility] POTASSIUM 3.7 3.5 - 5.3 mmol/L [facility] CHLORIDE 99 98 - 110 mmol/L [facility] CO2 30 20 - 32 mmol/L [facility] CALCIUM 9.7 8.6 - 10.4 mg/dL [facility] TOTAL PROTEIN 6.7 6.1 - 8.1 g/dL [facility] ALBUMIN 4.1 3.6 - 5.1 g/dL [facility] GLOBULIN 2.6 1.9 - 3.7 g/dL (calc) [facility] ALBUMIN/GLOBULIN RATIO 1.6 1.0 - 2.5 (calc) [facility] BILIRUBIN TOTAL 0.6 0.2 - 1.2 mg/dL [facility] ALKALINE PHOSPHATASE 143 37 - 153 U/L [facility] AST 17 10 - 35 U/L [facility] ALT 13 6 - 29 U/L [facility] Comment: FASTING:NO FASTING: NO Test Performed at: [facility] [address] [place], [place] ??[phone] Natalia Mcfarland MD 02/16/2024 7:32 AM CDT 02/16/2024 7:35 AM CDT Wil Pena MD CHEMISTRY ORDERABLES [facility] [phone] [facility] [address] [place] [phone] * (ABNORMAL) CBC WITH DIFFERENTIAL (02/16/2024 7:32 AM CDT) WBC 4.4 3.8 - 10.8 Thousand/u L [facility] RBC 4.62 3.80 - 5.10 Million/uL [facility] HEMOGLOBIN 12.1 11.7 - 15.5 g/dL [facility] HEMATOCRIT 37.4 35.0 - 45.0 % [facility] MCV 81.0 80.0 - 100.0 fL [facility] MCH 26.2(L) 27.0 - 33.0 pg [facility] MCHC 32.4 32.0 - 36.0 g/dL [facility] RDW 13.8 11.0 - 15.0 % [facility] PLATELETS 198 140 - 400 Thousand/u L [facility] MPV 10.6 7.5 - 12.5 fL [facility] NEUTROPHIL ABSOLUTE 2,460 1,500 - 7,800 cells/uL [facility] LYMPHOCYTE ABSOLUTE 1,412 850 - 3,900 cells/uL [facility] MONOCYTE ABSOLUTE 405 200 - 950 cells/uL [facility] EOSINOPHIL ABSOLUTE 92 15 - 500 cells/uL [facility] BASOPHILS ABSOLUTE 31 0 - 200 cells/uL [facility] NEUTROPHIL 55.9 % [facility] LYMPHOCYTES 32.1 % [facility] MONOCYTE 9.2 % [facility] EOSINOPHILS 2.1 % [facility] BASOPHILS 0.7 % [facility] Comment: FASTING:NO FASTING: NO Test Performed at: [facility] [address] [place], [place] ??[phone] Natalia Mcfarland MD 02/16/2024 7:32 AM CDT 02/16/2024 7:35 AM CDT Wil Pena MD HEMATOLOGY ORDERABLE S [facility] [phone] [facility] [address] documented in this encounter Visit Diagnoses Not on filedocumented in this encounter Care Teams Marina Porter Relationship Specialty Start Date End Date Gary Rich MD [address] [place] [address] [address] [place] [address] PCP - General Internal Medicine 01/29/22 documented as of this encounter
--- OUTSIDE RECORDS SUMMARY | 2024-11-08 06:19 | XMS_ITS | Encounter Summary ---
Author Organization [facility] Address [address] [place] [address] Care Team Providers Care Memory Care Program Director Name Role Phone Gary Rich MD Primary Care Provider [phone] Reason for Visit * Reason Onset Date Comments Mammogram order 09/22/2022 Encounter Details Date Type Department Care Team (Late Contact Info) Description 09/22/2022 Telephone [facility] Oncology and [facility] [address] [place] [address] Wil Pena MD [facility] [address] [place] [address] Mammogram order Social History Tobacco Use Types Packs/Day Years [...] (Late Contact Info) Description 11/18/2024 10:15 AM TEMPORARY RECEPTIONIST Office Visit [facility] Oncology and Hematology [place] [address] [place] [address] Wil Pena MD [address] [facility] [address] [facility] [address] [place] [address] documented as of this encounter Visit Diagnoses Diagnosis Malignant neoplasm of upper-outer quadrant of left breast in female, estrogen receptor positive- Primary documented in this encounter Care Teams Memory Care Program Director Relationship Specialty Start Date End Date Gary Rich MD [address] [facility] [address] [place] [address] PCP - General Internal Medicine 01/29/22 documented as of this encounter
--- OUTSIDE RECORDS SUMMARY | 2024-11-08 06:19 | XMS_ITS | Encounter Summary ---
Author Organization [facility] Address [address] [facility] Attn: Epic Prelude ADT [place] [address] Care Team Providers Care Trolley Car Overhauler Name Role Phone Gary Rich MD Primary Care Provider [phone] Encounter Details Date Type Department Care Team (Latest Contact Info) Description 01/29/2022 Travel Social History Tobacco Use Types Packs/Day [...] st Contact Info) Description 11/18/2024 10:15 AM CELLO TEACHER Office Visit [facility] Oncology and Hematology - [place] [address] [facility] [address] [place] [address] Wil Pena MD [address] [facility] [address] [place] [address] documented as of this encounter Visit Diagnoses Not on filedocumented in this encounter Care Teams Trolley Car Overhauler Relationship Specialty Start Date End Date Gary Rich MD [address] [facility] [address] [place] [phone] PCP - General Internal Medicine 01/29/22 documented as of this encounter
--- OUTSIDE RECORDS SUMMARY | 2024-11-08 06:19 | XMS_ITS | Encounter Summary ---
Author Organization [facility] Address [address] [facility] [address] Saunders: Epic Prelude ADT [place] [address] Care Team Providers Care Solar Design Engineer Name Role Phone Gary Rich MD Primary Care Provider [phone] Encounter Details Date Type Department Care Team (Late st Contact Info) Description 01/19/2023 Orders Only Initial Department [address] [facility] [place]UNDERS: [place] [address] Provider, Historical Malignant neoplasm of upper-outer quadrant [...] st Contact Info) Description 11/18/2024 10:15 AM WARP KNIT OPERATOR Office Visit [facility] Oncology and Hematology - [place] [address] [place] [address] [address] [place] [address] Wil Pena MD [address] [facility] [address] [place] [address] documented as of this encounter Procedures Procedure Name Priority Date/Time Associated Diagnosis Comments CANCER ANTIGEN 15-3 Routine 01/19/2023 8 :57 AM CDT Malignant neoplasm of upper-outer quadrant of left breast in female, estrogen receptor positive CBC WITH DIFFERENTIAL Routine 01/19/2023 8:57 AM CDT COMPREHENSIVE METABOLIC PANEL Routine 01/19/2023 8:57 AM CDT documented in this encounter Results * CANCER ANTIGEN 15-3 (01/19/2023 8:57 AM CDT) CA 15-3 11 <32 U/mL [facility] Comment: This test was performed using the Siemens (WorkThink) chemiluminescent method. Values obtained from different assay methods cannot be used interchangeably. CA 15-3 levels, regardless of value, should not be interpreted as absolute evidence of the presence or absence of disease. FASTING:YES FASTING: YES Test Performed at: [email or web address] [place] [address] ??[phone] Natalia Mcfarland MD Blood 01/19/2023 8:57 AM CDT 01/19/2023 8:58 AM CDT Wil Pena MD CHEMISTRY ORDERABLES [facility] [phone] [facility] [address] * (ABNORMAL) COMPREHENSIVE METABOLIC PANEL (01/19/2023 8:57 AM CDT) GLUCOSE 134(H) 65 - 99 mg/dL [facility] Comment: ? Fasting reference interval For someone without known diabetes, a glucose value >125 mg/dL indicates that they may have diabetes and this should be confirmed with a follow-up test. BUN 33(H) 7 - 25 mg/dL [facility] CREATININE 0.98(H) 0.60 - 0.95 mg/dL [facility] GFR 58(L) > OR = 60 mL/min/1.7 3m2 [facility] Comment: The eGFR is based on the CKD-EPI 2020 equation. To calculate the new eGFR from a previous Creatinine or Cystatin C result, go to https://www.kidney.org/professionals/ kdoqi/gfr%5Fcalculator BUN/CREAT RATIO 34(H) 6 - 22 (calc) [facility] SODIUM 138 135 - 146 mmol/L [facility] POTASSIUM 3.7 3.5 - 5.3 mmol/L [facility] CHLORIDE 99 98 - 110 mmol/L [facility] CO2 29 20 - 32 mmol/L [facility] CALCIUM 9.8 8.6 - 10.4 mg/dL [facility] TOTAL PROTEIN 6.8 6.1 - 8.1 g/dL [facility] ALBUMIN 4.0 3.6 - 5.1 g/dL [facility] [...] Comment: FASTING:YES FASTING: YES Test Performed at: [facility] [address] [place], [place] ??[phone] Natalia Mcfarland MD 01/19/2023 8:57 AM CDT 01/19/2023 8:58 AM CDT Wil Pena MD CHEMISTRY ORDERABLES [facility] [phone] [facility] [address] [place] [phone] * (ABNORMAL) CBC WITH DIFFERENTIAL (01/19/2023 8:57 AM CDT) WBC 4.2 3.8 - 10.8 Thousand/u L [facility] RBC 4.75 3.80 - 5.10 Million/uL [facility] HEMOGLOBIN 12.4 11.7 - 15.5 g/dL [facility] HEMATOCRIT 38.0 35.0 - 45.0 % [facility] MCV 80.0 80.0 - 100.0 fL [facility] MCH 26.1(L) 27.0 - 33.0 pg [facility] MCHC 32.6 32.0 - 36.0 g/dL [facility] RDW 14.1 11.0 - 15.0 % [facility] PLATELETS 186 140 - 400 Thousand/u L [facility] MPV 11.4 7.5 - 12.5 fL [facility] NEUTROPHIL ABSOLUTE 2,759 1,500 - 7,800 cells/uL [facility] LYMPHOCYTE ABSOLUTE 949 850 - 3,900 cells/uL [facility] MONOCYTE ABSOLUTE 382 200 - 950 cells/uL [facility] EOSINOPHIL ABSOLUTE 80 15 - 500 cells/uL [facility] BASOPHILS ABSOLUTE 29 0 - 200 cells/uL [facility] NEUTROPHIL 65.7 % [facility] LYMPHOCYTES 22.6 % [facility] MONOCYTE 9.1 % [facility] EOSINOPHILS 1.9 % [facility] BASOPHILS 0.7 % [facility] Comment: FASTING:YES FASTING: YES Test Performed at: [facility] [address] [place], [place] ??[phone] Natalia Mcfarland MD 01/19/2023 8:57 AM CDT 01/19/2023 8:58 AM CDT Wil Pena MD HEMATOLOGY ORDERABLE S [facility] [phone] [facility] [address] [place] [address] documented in this encounter Visit Diagnoses Diagnosis Malignant neoplasm of upper-outer quadrant of left breast in female, estrogen receptor positive documented in this encounter Care Teams Solar Design Engineer Relationship Specialty Start Date End Date Gary Rich MD [address] [facility] [address] [place] [address] PCP - General Internal Medicine 01/29/22 documented as of this encounter
--- OUTSIDE RECORDS SUMMARY | 2024-11-08 06:19 | XMS_ITS | Encounter Summary ---
Author Organization [facility] RAMAN Sol Thoof Address [address] [place] [address] Care Team Providers Care Overhead Cleaner Maintainer Name Role Phone Gary Rich MD Primary Care Provider [phone] Reason for Visit * Reason Comments Cancer Encounter Details Date Type Department Care Team (Late st Contact Info) Description 10/20/2023 9:45 AM TRAFFIC MANAGER Office Visit [facility] Oncology and Hematology - Олег [address] [facility] [address] [place] [address] Wil Pena MD [address] [facility] [address] [place] [address] Malignant neoplasm of upper-outer quadrant [...] Reading Time Taken Comments Blood Pressure 132/72 10/20/2023 9:38 AM TRAFFIC MANAGER Pulse 85 10/20/2023 9:38 AM TRAFFIC MANAGER Temperature 37 ??C (98.6 ??F) 10/20/2023 9:38 AM TRAFFIC MANAGER Respiratory Rate 16 10/20/2023 9:38 AM TRAFFIC MANAGER Oxygen Saturation 98% 10/20/2023 9:38 AM TRAFFIC MANAGER Inhaled Oxygen Concentration - - Weight 81.5 kg (179 lb 9.6 oz) 10/20/2023 9:38 A M TRAFFIC MANAGER Height - - Body Mass Index 28.99 07/01/2022 1:03 PM CDT documented in this encounter Progress Notes * Wil Pena MD - 10/20/2023 9:53 AM CST HEMATOLOGY / ONCOLOGY PROGRESS NOTE Patient [...] for carcinoma. Previous biopsy showed ER and HI 95% positive Ki-67 less than 5% and [...] for follow-up visit. She denies any new long bones or lymphadenopathy. Denies any chest pain and shortness of breath. She has gained 7 pound weight. No bleeding and bruising. No other new complaints. Review of system Constitutional: Patient did not mention fevers,fatigue, malaise, denies any tiredness and fatigue, 7 pound weight gain HEENT: Patient did not mention sinus congestion, [...] 10 showed CA 15-3 10 hemoglobin 12.7 Assessment: Plan: Patient Active Problem List Diagnosis [...] for carcinoma. Previous biopsy showed ER and HI 95% positive Ki-67 less than 5% and [...] of relapse of disease on my examination. Mammogram done on September 22 showed no evidence of disease. She will have bilateral screening mammogram next year in September. Labs including tumor marker stable. I plan to see her back in 4 months with repeat labs. Bone health. Vitamin D was discontinued by the primary care physician due to elevated levels. 10/20/2023 Wil Pena MD FIC MANAGER documented in this encounter Plan of Treatment Upcoming Encounters Date Type Department Care Team (Late st Contact Info) Description 11/18/2024 10:15 AM TRAFFIC MANAGER Office Visit [facility] Oncology and Hematology [facility] [address] [facility] [address] [place] [address] Wil Pena MD [address] [facility] [address] [place] [address] documented as of this encounter Visit Diagnoses Diagnosis Malignant neoplasm of upper-outer quadrant of left breast in female, estrogen receptor positive- Primary documented in this encounter Care Teams Overhead Cleaner Maintainer Relationship Specialty Start Date End Date Gary Rich MD [address] [facility] [address] [place] [id number] PCP - General Internal Medicine 01/29/22 documented as of this encounter
--- OUTSIDE RECORDS SUMMARY | 2024-11-08 06:19 | XMS_ITS | Encounter Summary ---
Author Organization [facility] Address [address] [place] [address] Care Team Providers Care State Tested Nursing Assistant Name Role Phone Gary Rich MD Primary Care Provider [phone] Encounter Details Date Type Department Care Team (Late st Contact Info) Description 09/22/2022 Orders Only [facility] Oncology and Hematology [facility] [place] [address] [place] [address] Nazia [place] RN Malignant neoplasm of upper-outer quadrant of left [...] st Contact Info) Description 11/18/2024 10:15 AM CROP SUPERVISOR Office Visit [facility] Oncology and [facility] [address] [place] [address] Wil Pena MD [address] [facility] [address] [place] [address] documented as of this encounter Procedures Procedure Name Priority Date/Time Associated Diagnosis Comments CANCER ANTIGEN 15-3 Routine 09/22/2022 7 :28 AM CROP SUPERVISOR CBC WITH DIFFERENTIAL Routine 09/22/2022 7:28 AM CROP SUPERVISOR BASIC METABOLIC PANEL Routine 09/22/2022 7:28 AM CROP SUPERVISOR documented in this encounter Results * CANCER ANTIGEN 15-3 (09/22/2022 7:28 AM CROP SUPERVISOR) Pathologist [facility] CA 15-3 10 <32 U/mL [facility] Comment: This test was performed using the Siemens (Mention Mobile) chemiluminescent method. Values obtained from different assay methods cannot be used interchangeably. CA 15-3 levels, regardless of value, should not be interpreted as absolute evidence of the presence or absence of disease. FASTING:YES FASTING: YES Test Performed at: [facility] [id number] [place], [place] ??[phone] Brandon Gaines D.O., MPH 09/22/2022 7:28 AM CROP SUPERVISOR 09/22/2022 7:29 AM CROP SUPERVISOR Wil Pena MD CHEMISTRY ORDERABLES [facility] [phone] [facility] [address] * (ABNORMAL) CBC WITH DIFFERENTIAL (09/22/2022 7:28 AM CROP SUPERVISOR) Pathologist [facility] WBC 4.8 3.8 - 10.8 Thousand/u L [facility] RBC 4.76 3.80 - 5.10 Million/uL [facility] HEMOGLOBIN 12.3 11.7 - 15.5 g/dL [facility] HEMATOCRIT 38.6 35.0 - 45.0 % [facility] MCV 81.1 80.0 - 100.0 fL [facility] MCH 25.8(L) 27.0 - 33.0 pg [facility] MCHC 31.9(L) 32.0 - 36.0 g/dL [facility] RDW 13.8 11.0 - 15.0 % [facility] PLATELETS 208 140 - 400 Thousand/u L [facility] MPV 11.0 7.5 - 12.5 fL [facility] NEUTROPHIL ABSOLUTE 3,216 1,500 - 7,800 cells/uL [facility] LYMPHOCYTE ABSOLUTE 1,090 850 - 3,900 cells/uL [facility] MONOCYTE ABSOLUTE 365 200 - 950 cells/uL [facility] EOSINOPHIL ABSOLUTE 110 15 - 500 cells/uL [facility] BASOPHILS ABSOLUTE 19 0 - 200 cells/uL [facility] NEUTROPHIL 67 % [facility] LYMPHOCYTES 22.7 % [facility] MONOCYTE 7.6 % [facility] EOSINOPHILS 2.3 % [facility] BASOPHILS 0.4 % [facility] Comment: FASTING:YES FASTING: YES Test Performed at: [facility] ??[address] Brandon Gaines D.O., MPH 09/22/2022 7:28 AM CROP SUPERVISOR 09/22/2022 7:29 AM CROP SUPERVISOR Wil Pena MD HEMATOLOGY ORDERABLE S [facility] [phone] [facility] [id number] [place] [address] * (ABNORMAL) BASIC METABOLIC PANEL (09/22/2022 7:28 AM CROP SUPERVISOR) GLUCOSE 131(H) 65 - 99 mg/dL [facility] [...] result, go to https://www.kidney.org/professionals/ kdoqi/gfr%[email or web address] BUN/CREAT RATIO 30(H) 6 - 22 (calc) [facility] SODIUM 138 135 - 146 mmol/L [facility] POTASSIUM 3.7 3.5 - 5.3 mmol/L [facility] CHLORIDE 99 98 - 110 mmol/L [facility] CO2 31 20 - 32 mmol/L [facility] CALCIUM 10.3 8.6 - 10.4 mg/dL [facility] Comment: FASTING:YES FASTING: YES Test Performed at: [facility] [address] [place], [place] ??[address] Brandon Gaines D.O., MPH 09/22/2022 7:28 AM CROP SUPERVISOR 09/22/2022 7:29 AM CROP SUPERVISOR Wil Pena MD CHEMISTRY ORDERABLES [facility] [phone] [facility] [address] documented in this encounter Visit Diagnoses Diagnosis Malignant neoplasm of upper-outer quadrant of left breast in female, estrogen receptor positive documented in this encounter Care Teams State Tested Nursing Assistant Relationship Specialty Start Date End Date Gary Rich MD [address] [facility] [address] [place] [address] PCP - General Internal Medicine 01/29/22 documented as of this encounter
--- OUTSIDE RECORDS SUMMARY | 2024-11-08 06:19 | XMS_ITS | Encounter Summary ---
Author Organization [facility] RAMAN Sol Apervita Address [address] [place] [address] Care Team Providers Care Housekeeping Department Worker Name Role Phone Gary Rich MD Primary Care Provider [phone] Encounter Details Date Type Department Care Team (Late Contact Info) Description 02/15/2024 Orders Only [facility] Oncology and Hematology - Олег [address] [place] [address] Wil Pena MD [address] [employer] [address] [place] [address] Social History Tobacco Use Types Packs/Day Years [...] st Contact Info) Description 11/18/2024 10:15 AM TECHNICAL SALES SUPPORT MANAGER Office Visit [facility] Oncology and Hematology - Олег [address] [place] [address] Wil Pena MD [address] [employer] [address] [place] [address] documented as of this encounter Visit Diagnoses Not on filedocumented in this encounter Care Teams Housekeeping Department Worker Relationship Specialty Start Date End Date Gary Rich MD [address] [facility] [address] [place] [address] PCP - General Internal Medicine 01/29/22 documented as of this encounter
--- OUTSIDE RECORDS SUMMARY | 2024-11-08 06:19 | XMS_ITS | Encounter Summary ---
Author Organization [facility] Address [address] [facility] [place] [address] Phone Care Team Providers Care Part Time Receptionist Name Role Phone Gary Rich MD Primary Care Provider [phone] Encounter Details Date Type Department Care Team (Late st Contact Info) Description 10/22/2021 Orders Only [facility] [address] [facility] [address] [place] [address] Camden Xiong DO [address] [facility] [address] [place] [address] Social History Tobacco Use Types [...] on filedocumented in this encounter Care Teams Part Time Receptionist Relationship Specialty Start Date End Date Gary Rich MD PCP - General Internal Medicine 10/16/21 documented as of this encounter
--- OUTSIDE RECORDS SUMMARY | 2024-11-08 06:19 | XMS_ITS | Encounter Summary ---
Author Organization [facility] Address [address] [place] [address] Care Team Providers Care Mixing Machine Attendant Name Role Phone Gary Rich MD Primary Care Provider [phone] Encounter Details Date Type Department Care Team (Late st Contact Info) Description 12/09/2023 External Device Data STL ABSTRACTION Provider, Abstract [...] st Contact Info) Description 11/18/2024 10:15 AM MANAGER TRANSITION Office Visit [facility] Oncology and Hematology - Олег [address] [facility] [address] [place] [address] Wil Pena MD [address] [facility] [address] [place] [address] documented as of this encounter Visit Diagnoses Not on filedocumented in this encounter Care Teams Mixing Machine Attendant Relationship Specialty Start Date End Date Gary Rich MD [address] [facility] [address] [place] [address] PCP - General Internal Medicine 01/29/22 documented as of this encounter
--- OUTSIDE RECORDS SUMMARY | 2024-11-08 06:19 | XMS_ITS | Encounter Summary ---
Author Organization [facility] Address [address] [facility] Attn: Epic Prelude ADT [place] [address] Care Team Providers Care Paediatric Surgeon Name Role Phone Gary Rich MD Primary Care Provider Encounter Details Date Type Department Care Team (Latest Contact Info) Description 07/01/2022 Travel Social History Tobacco Use Types Packs/Day [...] st Contact Info) Description 11/18/2024 10:15 AM NEWSPERSON Office Visit [facility] Oncology and Hematology - Олег [address] [facility] 200 [place] [address] Wil Pena MD [address] [facility] [address] [place] [address] documented as of this encounter Visit Diagnoses Not on filedocumented in this encounter Care Teams Paediatric Surgeon Relationship Specialty Start Date End Date Gary Rich MD [address] [facility] [address] [place] [address] PCP - General Internal Medicine 01/29/22 documented as of this encounter
--- OUTSIDE RECORDS SUMMARY | 2024-11-08 06:19 | XMS_ITS | Encounter Summary ---
Author Organization [facility] [employer] Address [address] [place] [address] Care Team Providers Care General Assembler Installer Name Role Phone Gary Rich MD Primary Care Provider [phone] Reason for Visit * Reason Onset Date Comments Results 09/22/2023 Encounter Details Date Type Department Care Team (Late Contact Info) Description 09/22/2023 Telephone [facility] Oncology and Hematology [facility] [address] [place] [address] Wil Pena MD [address] [employer] [address] [place] [address] Results Social History Tobacco Use Types Packs/Day Years Used Date Smoking Tobacco: Never Smokeless Tobacco: Never Alcohol Use Standard Drinks/Week Comments Never 0 (1 standard drink = 0.6 oz pur e alcohol) Sex and Gender Information Value Date Recorded Sex Assigned at Not on file Gender Identity Not on file Sexual Orientation Not on file documented as of this encounter Miscellaneous Notes * Telephone Encounter - Sara Dixon RN - 09/22/2023 3:37 PM PRESIDENT CELEBRITY ACQUISTION Called to give pt mammogram results IDENT CELEBRITY ACQUISTION documented in this encounter Plan of Treatment Upcoming Encounters Date Type Department Care Team (Late Contact Info) Description 11/18/2024 10:15 AM PRESIDENT CELEBRITY ACQUISTION Office Visit [facility] Oncology and Hematology - Олег [address] [place] [address] Wil Pena MD [address] [employer] [address] [place] [address] documented as of this encounter Visit Diagnoses Not on filedocumented in this encounter Care Teams General Assembler Installer Relationship Specialty Start Date End Date Gary Rich MD [address] [facility] [address] [place] [address] PCP - General Internal Medicine 01/29/22 documented as of this encounter
--- OUTSIDE RECORDS SUMMARY | 2024-11-08 06:19 | XMS_ITS | Encounter Summary ---
Author Organization [facility] Address [address] [place] [address] Care Team Providers Care Electroplater Name Role Phone Gary Rich MD Primary Care Provider [phone] Encounter Details Date Type Department Care Team (Late Contact Info) Description 09/22/2023 Orders Only [facility] Oncology and Hematology - Олег [address] [place] [address] Wil Pena MD [address] [employer] [address] [place] [address] Social History Tobacco Use Types Packs/Day [...] st Contact Info) Description 11/18/2024 10:15 AM LAUNDRY TECH Office Visit [facility] Oncology and Hematology - Олег [address] [place] [address] Wil Pena MD [address] [employer] [address] [place] [address] documented as of this encounter Procedures Procedure Name Priority Date/Time Associated Diagnosis Comments MAMMO SCREENING BILAT Routine 09/22/2023 3:14 PM LAUNDRY TECH documented in this encounter Results * MAMMO SCREENING BILAT (09/22/2023 3:14 PM LAUNDRY TECH) Anatomical Region Laterality Modality Breast Bilateral Other Wil Pena MD MAMMO ORDERABLES documented in this encounter Visit Diagnoses Not on filedocumented in this encounter Care Teams Electroplater Relationship Specialty Start Date End Date Gary Rich MD [address] [address] PCP - General Internal Medicine 01/29/22 documented as of this encounter
--- OUTSIDE RECORDS SUMMARY | 2024-11-08 06:19 | XMS_ITS | Encounter Summary ---
Author Organization [facility] Address [address] [place] [address] Care Team Providers Care Parts Analyst Name Role Phone Gary Rich MD Primary Care Provider [phone] Encounter Details Date Type Department Care Team [...] st Contact Info) Description 11/18/2024 10:15 AM BELT PRESS OPERATOR Office Visit [facility] Oncology and Hematology - Олег [address] [facility] 200 [place] [address] Wil Pena MD [address] [facility] [address] [place] [address] documented as of this encounter Visit Diagnoses Not on filedocumented in this encounter Care Teams Parts Analyst Relationship Specialty Start Date End Date Gary Rich MD [address] [facility] [address] [place] [address] PCP - General Internal Medicine 01/29/22 documented as of this encounter
--- OUTSIDE RECORDS SUMMARY | 2024-11-08 06:19 | XMS_ITS | Encounter Summary ---
Author Organization [facility] Address [address] [place] [address] Care Team Providers Care Lead Manufacturing Engineer Name Role Phone Gary Rich MD Primary Care Provider [phone] Encounter Details Date Type Department Care Team (Late st Contact Info) Description 07/30/2023 External Device Data STL ABSTRACTION Provider, Abstract [...] st Contact Info) Description 11/18/2024 10:15 AM POST HOLE DIGGING MACHINE OPERATOR Office Visit [facility] Oncology and Hematology - Олег [address] [facility] [address] [place] [address] Wil Pena MD [address] [facility] [address] [place] [address] documented as of this encounter Visit Diagnoses Not on filedocumented in this encounter Care Teams Lead Manufacturing Engineer Relationship Specialty Start Date End Date Gary Rich MD [address] [facility] [address] [place] [address] PCP - General Internal Medicine 01/29/22 documented as of this encounter
== END 2024-11-01 08:13 | disposition home or self-care (01) ==
PROVIDERS: PCP Internal Medicine; Visit Provider Internal Medicine Hematology & Oncology
DX: Z12.31 Encounter for screening mammogram for malignant neoplasm of breast (principal)
CPT/HCPCS: 77063; 77067

== ENCOUNTER 2025-06-24 11:29 | Emergency (ER) | payer MEDICARE, SELFPAY ==
--- NOTE | ~2025-06-24 | CT_ITS ---
EXAMINATION: CT brain wo con DATE: 06/24/2025 12:10 INDICATION: Fall TECHNIQUE: Computed tomography (CT) of the head was performed without intravenous contrast. Sagittal and coronal reconstructions were performed. The mA was adjusted according to patient size. Iterative reconstruction technique was employed. The dose-length product was 605.33 mGy-cm. COMPARISON: head CT dated 10/12/2024 FINDINGS: Small left frontoparietal scalp hematoma. No fracture. No acute intracranial hemorrhage, acute infarc tion or abnormal extra axial fluid collection. There is mild scattered white matter hypoattenuation c onsistent with chronic small vessel ischemic disease. Symmetric prominence of the sulci consistent wi th mild age-appropriate diffuse cerebral volume loss. Ventricles are normal and symmetric. No mass/m ass effect. Changes of bilateral intraocular lens replacement. Opacification of one of the posterior right ethmoid sinuses. Mastoid air cells and middle ear cavities are clear. IMPRESSION: 1. No fracture or acute intracranial process. 2. Age-related changes including mild diffuse volume loss and mild scattered white matter hypoattenua tion consistent with chronic small vessel ischemic disease. Reviewed, dictated and finalized at location A. IMPRESSION: 1. No fracture or acute intracranial process. 2. Age-related changes including mild diffuse volume loss and mild scattered wh ite matter hypoattenuation consistent with chronic small vessel ischemic diseas e.
[2025-06-24 11:34] VITALS: BP 142/70; PULSE 87; RESP 20; TEMP 36.4; O2SAT 98
--- OUTSIDE RECORDS SUMMARY | 2025-06-24 11:37 | XMS_ITS | Encounter Summary ---
Author Organization [facility] Address [address] [facility] [address] [place] [address] Care Team Providers Care Scratch Brusher Name Role Phone Gray Rich MD Primary Care Provider Encounter Details Date Type Department Care Team (Late st Contact Info) Description 04/03/2017 Orders Only [facility] ProviderRebecca MD [address] [place] [address] Social History Tobacco Use Types Packs/Day Years Used Date Smoking Tobacco: Never Alcohol Use Standard Drinks/Week Comments No 0 (1 standard drink = 0.6 oz pur e alcohol) Comments Unknown Sex and Gender Information Value Date Recorded Sex Assigned at Not on file Legal Sex Female 3:19 AM CHECK SCALER Gender Identity Not on file Sexual Orientation Not on file documented as of this encounter Plan of Treatment Not on file documented as of this encounter Procedures Procedure Name Priority Date/Time Associated Diagnosis Comments CARDIOLOGY REPORT 04/03/2017 documented in this encounter Results * CARDIOLOGY REPORT (04/03/2017) Anatomical Region Laterality Modality Other Narrative 04/03/2017 Ordered by an unspecified provider. Historical Provider [facility] IRENE HOLMAN Final Result documented in this encounter Visit Diagnoses Not on filedocumented in this encounter Care Teams Scratch Brusher Relationship Specialty Start Date End Date Gary Rich MD PCP - General 02/06/17 documented as of this encounter
--- OUTSIDE RECORDS SUMMARY | 2025-06-24 11:37 | XMS_ITS | Clinical Summary ---
Author Organization [facility] [place] [address] Address [address] [place] [address] Care Team Providers Care Funding Specialist Name Role Phone Gary Rich MD Primary Care Provider Allergies Active Allergy Reactions Criticality Noted Date Comments Carvedilol Unknown 09/08/2023 Fumrumt-Qqo-Tcs Reductase Inhibitors Muscle pain Medium 01/19/2018 Intolerant to statins due to myalgias. 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 ([facility]/HCC) 07/10/2020 QT prolongation 07/27/2018 Pulmonary hypertension (CMS/HCC) 12/11/2015 Overview (02/12/2017): Pulmonary HTN Statin intolerance 12/11/2015 Overview (02/12/2017): Statin intolerance Atrial fibrillation 09/18/2015 Overview (02/12/2017): Atrial fibrillation, currently in sinus rhythm History of maze procedure 09/18/2015 Overview (02/12/2017): Status post Maze operation for atrial fibrillation Fatigue 09/18/2015 Overview (02/12/2017): Other fatigue Dyspnea on exertion 09/18/2015 Overview (02/12/2017): SOB (shortness of breath) on exertion Hypertension associated with diabetes 06/14/2014 Overview (02/12/2017): HTN (hypertension), benign History of atrial fibrillation 06/14/2014 Overview (02/12/2017): H/O atrial fibrillation without current medication Adiposity 06/14/2014 Overview (02/12/2017): Obesity Postprocedural state 06/14/2014 Overview (02/12/2017): S/P Maze operation for atrial fibrillation History of mitral valve repair 06/14/2014 Overview (02/12/2017): H/O mitral valve repair Mitral valve insufficiency 05/19/2011 Shortness of breath 02/13/2011 Resolved Problems Problem Noted Date Diagnosed Date Resolved Date Dyslipidemia 06/14/2014 07/15/2022 Overview (02/12/2017): Dyslipidemia Surgical History Surgery Date Site/Laterality Comments BREAST SURGERY 01/07/2022 - 02/06/2022 for cancer Medical History Medical History Date Comments Hypertension Atrial fibrillation (HCC) Breast cancer (HCC) Family History Medical History Relation Name Comments Heart attack Brother Myocardial infa rction; Heart attack Father Myocardial infa rction; Heart attack Mother Myocardial infa rction; Relation Name Status Comments Brother Father Mother Social History Tobacco Use Types Packs/Day Years Used Date Smoking Tobacco: Never Smokeless Tobacco: Never Alcohol Use Standard Drinks/Week Comments No 0 (1 standard drink = 0.6 oz pur e alcohol) Personal Safety Answer Date Recorded Getting School Help Needed Not on file 01/08 Comments Unknown Sex and Gender Information Value Date Recorded Sex Assigned at Not on file Legal Sex Female 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 Gender Identity Not on file Sexual Orientation Not on file Obstetrics History Last Filed Vital Signs Vital Sign Reading Time Taken Comments Blood Pressure 122/66 09/08/2023 9:02 AM CDT Pulse 61 09/08/2023 9:02 AM CDT Temperature - - Respiratory Rate - - Oxygen Saturation 97% 09/08/2023 9:02 AM CDT Inhaled Oxygen Concentration - - Weight 80.1 kg (176 lb 9.6 oz) 09/08/2023 9:02 A M CDT Height 167.6 cm (5' 6) 09/08/2023 9:02 AM CDT Body Mass Index 28.5 09/08/2023 9:02 AM CDT Plan of Treatment Health Maintenance Due Date Last Done Comments Albumin Creatinine Ratio, Urine 1940 Depression Screening 1940 Fall Risk Assessment 1940 Hemoglobin A1C 1940 Osteoporosis Screening-Bone Density Scan 1940 eGFR 1940 Dilated Eye Exam 1940 Foot Exam 1940 DTaP/Tdap/Td Vaccine (1 - Tdap) 1951 Hepatitis B Screening 1958 Pneumococcal vaccine 65+ (1 of 2 - PCV) 1959 Zoster Vaccine (1 of 2) 1990 Well Visit 65+ 2005 Covid-19 Vaccine (2 - 2023-2 5 season) 2024 01/21/2021 Lipid Panel 09/08/2024 09/08/2023, 09/0 04/2022, 01/03/2021, Additional history exists Influenza Vaccine (#1) 2025 Procedures Procedure Name Priority Date/Time Associated Diagnosis Comments POCT LIPID PANEL Routine 09/08/2023 7:41 AM CDT Mixed diabetic hyperlipidemia associated with type 2 diabetes mellitus (CMS/HCC) (HCC) from Last 3 Months or Most Recently Relevant to Health Maintenance Results * POCT lipid panel (09/08/2023 7:41 AM CDT) Cholesterol, POC 197 mg/dL Comment:GLU = 151 HDL, POC 53 mg/dL Triglycerides, POC 233 mg/dL LDL Cholesterol POC 97 mg/dL Chol/HDL Ratio, POC 1.8 Non-HDL Cholesterol, POC 144 mg/dL Cholesterol Total, POC 197 mg/dL Capillary blood 09/08/2023 7 :41 AM CDT Luis Carlton MD POINT OF CARE TEST ORDER ADRIANNA Final Result from Last 3 Months or Most Recently Relevant to Health Maintenance Insurance [facility] Address: [place] [id number] [place] [id number] [facility] Address: [facility] [address] [place] [address] Care Teams Funding Specialist Relationship Specialty Start Date End Date Gary Rich MD [facility] - General 02/06/17
--- OUTSIDE RECORDS SUMMARY | 2025-06-24 11:37 | XMS_ITS | Clinical Summary ---
Author Organization [facility] Facility Address [address] [address] Care Team Providers Care Instructional Technologist Name Role Phone Gary Rich MD Primary Care Provider [phone] Social History Tobacco Use Types Packs/Day Years Used Date Smoking Tobacco: Never Assessed Comments Unknown Sex and Gender Information Value Date Recorded Sex Assigned at Not on file Legal Sex Female 6:25 PM EST Gender Identity Not on file Sexual Orientation Not on file Last Filed Vital Signs Vital Sign Reading Time Taken Comments Blood Pressure 120/62 12/03/2021 2:43 PM WATER/WASTEWATER PROJECT MANAGER Pulse 62 12/03/2021 2:43 PM WATER/WASTEWATER PROJECT MANAGER Temperature 36.7 C (98 F) 12/03/2021 2:43 PM WATER/WASTEWATER PROJECT MANAGER Respiratory Rate 18 12/03/2021 2:43 PM WATER/WASTEWATER PROJECT MANAGER Oxygen Saturation 99% 12/03/2021 2:43 PM WATER/WASTEWATER PROJECT MANAGER Inhaled Oxygen Concentration - - Weight 83.5 kg (184 lb) 12/03/2021 2:43 PM WATER/WASTEWATER PROJECT MANAGER Height 167.6 cm (5' 6) 12/03/2021 2:43 PM WATER/WASTEWATER PROJECT MANAGER Body Mass Index 29.7 12/03/2021 2:43 PM WATER/WASTEWATER PROJECT MANAGER Plan of Treatment Health Maintenance Due Date Last Done Comments Pneumococcal Vaccine: 50+ Ye ars (1 of 1 - PCV) 1990 Diabetes: Hemoglobin A1C 10/22/2021 Diabetes: Ophthalmology Exam 10/22/2021 Diabetes: Pedal Pulse Checked 10/22/2021 Diabetes: Sensory Foot Exam 10/22/2021 Diabetes: Visual Foot Exam 10/22/2021 Influenza Vaccine (#1) 2025 Hepatitis B Vaccine Aged Out No longe r eligible based on patient's age to complete this topic Insurance [facility] Medicare Care Teams Instructional Technologist Relationship Specialty Start Date End Date Gary Rich MD PCP - General Internal Medicine 10/16/21
--- OUTSIDE RECORDS SUMMARY | 2025-06-24 11:37 | XMS_ITS | Clinical Summary ---
Author Organization [facility] Alysia Coonia Address [address] [place] [address] Care Team Providers Care Contract Manager Name Role Phone Gary Rich MD Primary Care Provider [phone] Allergies No known active allergies Medications aMILoride-hydro CHLOROthiazide (MODURETIC) 5-50 mg Tablet Take 1 Tablet by mouth daily. 2 Active metFORMIN (GLUCOPHAGE) 500 mg tablet metformin 500 mg tablet 9 Active atorvastatin (LIPITOR) 20 mg tablet Take 20 mg by mouth daily. 2 Active aspirin (BEATRICE) 325 mg tablet Take 325 mg by mouth daily. Active glipiZIDE (GLUCOTROL) 5 mg tablet Take 1 Tablet by mouth 2 times daily. 5 Active Active Problems Problem Noted Date Diagnosed Date Malignant neoplasm of upper- outer quadrant of left breast in female, estrogen receptor positive 01/29/2022 Encounters Date Type Department Care Team Description 06/13/2025 External Device Data ST[facility] ABSTRACTION Provider, Abstract 05/24/2025 External Device Data [facility] ABSTRACTION Provider, Abstract 05/23/2025 External Device Data [facility] ABSTRACTION Provider, Abstract 05/02/2025 External Device Data [facility] ABSTRACTION Provider, Abstract 04/11/2025 External Device Data [facility] ABSTRACTION Provider, Abstract 04/04/2025 External Device Data [facility] ABSTRACTION Provider, Abstract 04/04/2025 External Device Data [facility] ABSTRACTION Provider, Abstract 03/29/2025 External Device Data [facility] ABSTRACTION Provider, Abstract 03/28/2025 External Device Data [facility] ABSTRACTION Provider, Abstract from Last 3 Months Family History Medical [...] = 0.6 oz pur e alcohol) Comments No Sex and Gender Information Value Date Recorded Sex Assigned at Not on file Legal Sex Female 2:21 PM CDT Gender Identity Not on file Sexual Orientation Not on file Last Filed Vital Signs Vital Sign Reading Time Taken Comments Blood Pressure 117/69 03/21/2025 10:13 AM CDT Pulse 60 03/21/2025 10:13 AM CDT Temperature 36.4 C (97.6 F) 03/21/2025 10:13 AM CDT Respiratory Rate 15 03/21/2025 10:13 AM CDT Oxygen Saturation 98% 03/21/2025 10:13 AM CDT Inhaled Oxygen Concentration - - Weight 80.8 kg (178 lb 3.2 oz) 03/21/2025 10:13 AM CDT Height 167.6 cm (5' 6) 07/01/2022 1:03 PM CDT Body Mass Index 28.76 07/01/2022 1:03 PM CDT Plan of Treatment Upcoming Encounters Date Type Department Care Team (Late st Contact Info) Description 07/25/2025 10:00 AM CDT Office Visit [facility] Oncology and Hematology - [address] [facility] [address] [place] [address] Wil Pena MD [address] [facility] [address] [place] [address] Health Maintenance Due Date Last Done Comments DIABETES ANNUAL FOOT EXAM 1958 DIABETES ANNUAL RETINAL EXAM 1958 DIABETES MICROALBUMIN ANNUAL SCREEN 1958 LDL CHOLESTEROL ANNUAL 1958 DTAP/TDAP/TD VACCINES (1 - Tdap) 1959 PNEUMOCOCCAL VACCINE 50+ YEARS (1 of 2 - PCV) 04/21/19 59 ZOSTER VACCINE (1 of 2) 1990 OSTEOPOROSIS SCREENING 2005 RSV VACCINE (60+ or ) (1 - 1-dose 75+ series) 2015 DIABETES HBA1C Q 6 MONTHS 03/15/2025 09/15/2024 INFLUENZA VACCINE (#1) 2025 Insurance [facility] [id number] Care Teams Contract Manager Relationship Specialty Start Date End Date Gary Rich MD [address] [facility] [address] [place] [address] PCP - General Internal Medicine 01/29/22
--- OUTSIDE RECORDS SUMMARY | 2025-06-24 11:37 | XMS_ITS | Clinical Summary ---
Author Organization [facility] Address [address] [facility] [place] [address] Care Team Providers Care Take Up Operator Name Role Phone Gary Rich MD Primary Care Provider [phone] Source Comments [facility],non-owned Affiliates and Associated Physician Practices is amultiple site organization consisting of ambulatory clinics and hospital sitesin [place], [place] and [place]. This disclosure is being madepursuant to the Care Everywhere program and may not contain all information available regarding this patient. Last updated 18.[facility] Allergies No known active allergies Medications * Be aware that medications may not be up to date on this document. Alwaysverify current medications with the patient. aMILoride-hydroC HLOROthiazide (MODURETIC) 5-50 MG tablet Take 1 Tab by mouth Active benzonatate (TESSALON) 200 MG capsuleIndicatio ns:Acute upper respiratory infections of unspecified site Take 1 Cap by mouth 3 times daily as needed for Cough 30 Cap 04/26/2017 Active Social History Tobacco Use Types Packs/Day Years Used Date Smoking Tobacco: Never Smokeless Tobacco: Never Comments Unknown Sex and Gender Information Value Date Recorded Sex Assigned at Not on file Legal Sex Female 11:10 AM CDT Gender Identity Not on file Sexual Orientation Not on file Last Filed Vital Signs Vital Sign Reading Time Taken Comments Blood Pressure 130/74 04/26/2017 11:19 AM CDT Pulse 64 04/26/2017 11:19 AM CDT Temperature 36.4 C (97.6 F) 04/26/2017 11:19 AM CDT Respiratory Rate - - Oxygen Saturation 97% 04/26/2017 11:19 AM CDT Inhaled Oxygen Concentration - - Weight 81.6 kg (180 lb) 04/26/2017 11:19 AM CDT Height 167.6 cm (5' 6) 04/26/2017 11:19 AM CDT Body Mass Index 29.05 04/26/2017 11:19 AM CDT Plan of Treatment Health Maintenance Due Date Last Done Comments BONE DENSITY TESTING 1940 DTAP/TDAP/TD VACCINES (1 - Tdap) 1959 PNEUMOCOCCAL VACCINE 50+ (1 of 1 - PCV) 1990 ZOSTER VACCINE (1 of 2) 1990 Respiratory Syncytial Virus (RSV) Vaccine Pt: or over 60 yrs (1 - 1-dose 75+ series) 2015 COVID-19 VACCINE ( - 2023-2 5 season) 2024 DEPRESSION SCREENING 11/09/2024 INFLUENZA VACCINE (#1) 2025 HEPATITIS B VACCINE Aged Out No longe r eligible based on patient's age to complete this topic HIB VACCINE Aged Out No longer eligi ble based on patient's age to complete this topic HPV VACCINE Aged Out No longer eligi ble based on patient's age to complete this topic MENINGOCOCCAL (Group B) VACC INE SHARED DECISION-MAKING Aged Out No longer eligibl e based on patient's age to complete this topic MENINGOCOCCAL GROUPS A/C/Y/W VACCINE Aged Out No longer eligible b ased on patient's age to complete this topic Insurance [facility] MANAGED MEDICARE ADV Care Teams Take Up Operator Relationship Specialty Start Date End Date Gary Rich MD [address] [place] [address] [address] [place] [address] PCP - General 01/17/22
--- OUTSIDE RECORDS SUMMARY | 2025-06-24 11:58 | XMS_ITS | Clinical Summary ---
Author Organization [facility] Address [address] [place] [address] Care Team Providers Care Commercial Parts Professional Name Role Phone Gary Rich MD Primary Care Provider [phone] Source Comments [facility],non-owned Affiliates and Associated Physician Practices is amultiple site organization consisting of ambulatory clinics and hospital sitesin [place], [place], [place] and [place]. This disclosure is being madepursuant to the Care Everywhere program and may not contain all information available regarding this patient. Last updated 18.[facility] Allergies No known active allergies Medications * [...] patient's age to complete this topic Insurance [facility] MANAGED MEDICARE ADV Care Teams Commercial Parts Professional Relationship Specialty Start Date End Date Gary Rich MD [address] [place] [address] [address] [place] [address] PCP - General 01/17/22
--- OUTSIDE RECORDS SUMMARY | 2025-06-24 11:58 | XMS_ITS | Clinical Summary ---
Author Organization [facility] Alysia Coonme Address [address] [place] [address] Care Team Providers Care Pathology Specialist Name Role Phone Gary Rich MD Primary Care Provider [phone] Allergies No known active allergies Medications aMILoride-hydro [...] Description 07/25/2025 10:00 AM CDT Office Visit [facility] Oncology and Hematology - [address] [facility] [address] [place] [address] Wil Pena MD [address] [facility] [address] [place] [address] Health Maintenance Due Date Last [...] INFLUENZA VACCINE (#1) 2025 Insurance [facility] [id number] Care Teams Pathology Specialist Relationship Specialty Start Date End Date Gary Rich MD [address] [facility] [address] [place] [address] PCP - General Internal Medicine 01/29/22
--- OUTSIDE RECORDS SUMMARY | 2025-06-24 11:58 | XMS_ITS | Clinical Summary ---
Author Organization [facility] Facility Address [address] [address] Care Team Providers Care Branch Rental Manager Name Role Phone Gary Rich MD Primary Care Provider [phone] Social History Tobacco Use Types Packs/Day Years Used Date Smoking Tobacco: Never Assessed Comments Unknown Sex and Gender Information Value Date Recorded Sex Assigned at Not on file Legal Sex Female 6:25 PM EST Gender Identity Not on file Sexual Orientation Not on file Last Filed Vital Signs Vital Sign Reading Time Taken Comments Blood Pressure 120/62 12/03/2021 2:43 PM ACCOUNTING SPECIALIST Pulse 62 12/03/2021 2:43 PM ACCOUNTING SPECIALIST Temperature 36.7 C (98 F) 12/03/2021 2:43 PM ACCOUNTING SPECIALIST Respiratory Rate 18 12/03/2021 2:43 PM ACCOUNTING SPECIALIST Oxygen Saturation 99% 12/03/2021 2:43 PM ACCOUNTING SPECIALIST Inhaled Oxygen Concentration - - Weight 83.5 kg (184 lb) 12/03/2021 2:43 PM ACCOUNTING SPECIALIST Height 167.6 cm (5' 6) 12/03/2021 2:43 PM ACCOUNTING SPECIALIST Body Mass Index 29.7 12/03/2021 2:43 PM ACCOUNTING SPECIALIST Plan of Treatment Health Maintenance Due [...] patient's age to complete this topic Insurance [facility] Medicare Care Teams Branch Rental Manager Relationship Specialty Start Date End Date Gary Rich MD PCP - General Internal Medicine 10/16/21
--- OUTSIDE RECORDS SUMMARY | 2025-06-24 11:58 | XMS_ITS | Clinical Summary ---
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
--- OUTSIDE RECORDS SUMMARY | 2025-06-24 11:58 | XMS_ITS | Encounter Summary ---
Author Organization [facility] Address [address] [facility] [address] [place] [address] Care Team Providers Care Rock Crushing Machine Operator Name Role Phone Gary Rich MD Primary Care Provider Encounter Details Date Type Department Care Team (Late st Contact Info) Description 04/03/2017 Orders Only [facility] ProviderRebecca MD [address] [place] [id number] Social History Tobacco Use Types Packs/Day Years Used Date Smoking Tobacco: Never Alcohol Use Standard Drinks/Week Comments No 0 (1 standard drink = 0.6 oz pur e alcohol) Comments Unknown Sex and Gender Information Value Date Recorded Sex Assigned at Not on file 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
--- NOTE | 2025-06-24 12:54 | ED.FALL ---
HPI - Fall General Chief Complaint: Fall Stated Complaint: fall Time Seen by Provider: 06/24/25 11:37 Source: patient Mode of arrival: ambulatory Limitations: no limitations History of Present Illness HPI Narrative: 85-year-old with a history of hypertension, hyperlipidemia here with the complaints of fall. Patient states that she was on a step stool lost her balance and fell forward. She denies any loss of consciousness. Has small laceration on the forehead. She denies any neck pain or chest pain complaint: fall Onset (ago): hour(s) (1) Fall from: standing Fall witnessed: yes, by family Place fall occurred: home Loss of consciousness: none Prolonged down time: no Symptoms prior to fall: none Context: tripped/slipped Location of injury: face Related Data Home Medications ?Medication ?Instructions ?Recorded ?Confirmed ?Last Taken ?Type amiloride 5 mg-hydrochlorothiazide 1 tablet PO QAM 01/06/22 05/06/22 01/14/22 History 50 mg tablet aspirin 325 mg tablet 325 mg PO DAILY 01/06/22 05/06/22 12/19/21 History atorvastatin 20 mg tablet 20 mg PO QAM 01/06/22 05/06/22 01/14/22 History metformin 500 mg tablet 500 mg PO QAM 01/06/22 05/06/22 01/14/22 History anastrozole 1 mg tablet 1 mg PO DAILY 05/06/22 05/06/22 Unknown History Allergies Allergy/AdvReac Type Severity Reaction Status Date / Time No Known Allergies Allergy Verified 06/24/25 11:29 Review of Systems Review of Systems: All systems reviewed & are unremarkable except as noted in HPI and below Constitutional: Constitutional: Reports no additional constitutional complaints Eyes: Eyes: Reports no additional eye complaints ENT: Reports system reviewed and no additional complaints, except as documented Cardiovascular: Cardiovascular: Reports no additional cardiovascular complaints Respiratory: Respiratory: Reports no additional respiratory complaints Gastrointestinal: Gastrointestinal: Reports no additional gastrointestinal complaints Musculoskeletal: Musculoskeletal: Reports no additional musculoskeletal complaints Integumentary/Breasts: Skin/Breast: Reports system reviewed and no additional complaints, except as docu PMFSH Past Medical History Medical History Diabetes High cholesterol Hypertension Surgical History Surgical History H/O lumpectomy 01/15/22 H/O left knee surgery H/O: hysterectomy Hx of cholecystectomy H/O mitral valve repair Family History Family History Father Acute myocardial infarction Mother Heart disease Diabetes mellitus Social History Social History Smoking status: Never smoker Second hand tobacco smoke exposure: No Alcohol intake: never Substance use: never Substance use type: does not use Living arrangements: with family Additional living arrangements comments: LIVES WITH SPOUSE AND GRANDSON 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 HEAD: Normocephalic, atraumatic. a small laceration on forehead EYES: PERRLA and EOMI. ENT: Nares clear, no rhinorrhea or epistaxis. Mucous membranes moist. NECK: Supple. CHEST: Clear to auscultation. No respiratory distress. HEART: Regular rate and rhythm. No murmur heard. Normal peripheral pulses. EXTREMITIES: Normal range of motion. No edema. SKIN: Warm, dry, no rash. NEURO: No focal deficits. Alert and oriented x3. PSYCH: Normal mood and affect. Course Course Emergency Course: Notified patient about the CT findings. Advised to take Tylenol for pain, rest. Any change in mental status return to the ER. Vital Signs Vital signs: Vital Signs Temperature 36.4 C 06/24/25 11:34 Pulse Rate 87 06/24/25 11:34 Respiratory Rate 20 06/24/25 11:34 Blood Pressure 142/70 H 06/24/25 11:34 Pulse Oximetry 98 06/24/25 11:34 Oxygen Delivery Room Air 06/24/25 11:34 Temperature 36.4 C 06/24/25 11:34 Pulse Rate 87 06/24/25 11:34 Respiratory Rate 20 06/24/25 11:34 Blood Pressure 142/70 H 06/24/25 11:34 Pulse Oximetry 98 06/24/25 11:34 Oxygen Delivery Room Air 06/24/25 11:34 Procedures Laceration Laceration 1: Date: 06/24/25 Time: 12:59 Site: face Size (cm): 2 Description: linear Depth: simple, single layer ====== Skin Level ====== Skin layer closed with: dermabond ====== Subcutaneous Layer ====== ====== Muscle Layer ====== ====== Tendon Layer ====== MDM - Fall Differential Diagnosis Differential diagnosis: Likely concussion with loss of consciousness and concussion without loss of consciousness Medical Records Attestation: I reviewed the patient's medical records. Imaging Data Radiologist's impression: ITS Impressions Head CT 06/24/25 12:11 IMPRESSION: 1. No fracture or acute intracranial process. 2. Age-related changes including mild diffuse volume loss and mild scattered white matter hypoattenuation consistent with chronic small vessel ischemic disease. Discharge Plan Discharge Clinical Impression: Head injury Qualifiers: Encounter type: initial encounter Qualified Code(s): S09.90XA - Unspecified injury of head, initial encounter Laceration of face Qualifiers: Encounter type: initial encounter Qualified Code(s): S01.81XA - Laceration without foreign body of other part of head, initial encounter Patient Disposition: Home Condition: Stable Instructions: Laceration (ED), Head Injury (ED) Patient Language: Peruvian Prescriptions: No Action fluticasone propionate [24 Hour Allergy Relief] 50 mcg/actuation spray,suspension 1 spray intranasal BID Qty: 16 0RF Rx Instructions: administer into each nostril anastrozole 1 mg Tablet 1 mg PO DAILY metformin 500 mg tablet 500 mg PO QAM aspirin 325 mg tablet 325 mg PO DAILY atorvastatin 20 mg tablet 20 mg PO QAM amiloride-hydrochlorothiazide 5-50 mg tablet 1 tablet PO QAM cephalexin 500 mg capsule 500 mg PO Q12H 7 Days Qty: 14 0RF Follow-up/Referrals: Hilario,Gary Moore MD [Primary Care Provider] - Time of Disposition: 13:00
== END 2025-06-24 13:16 | disposition home or self-care (01) ==
PROVIDERS: Emergency Provider Family Medicine; PCP Internal Medicine
DX: S01.81XA Laceration without foreign body of other part of head, initial encounter (principal); I10 Essential (primary) hypertension; E11.9 Type 2 diabetes mellitus without complications; E78.00 Pure hypercholesterolemia, unspecified; Z90.710 Acquired absence of both cervix and uterus; Z90.49 Acquired absence of other specified parts of digestive tract; Z79.82 Long term (current) use of aspirin; Z79.84 Long term (current) use of oral hypoglycemic drugs; Z79.899 Other long term (current) drug therapy; W17.89XA Other fall from one level to another, initial encounter
CPT/HCPCS: 12011; 70450; 99284